=== PATIENT | female | born 1980 | race Caucasian/White ===

== ENCOUNTER 2016-05-31 09:20 | Emergency (ER) | payer SELFPAY ==
[~2016-05-31] VITALS: Ht 175.3 cm; Wt 95.0 kg
[~2016-05-31 09:20] MED LIST: CIPR500T4 PO; CLIN150 PO; PERC5TAB12 PO
[2016-05-31 09:27] VITALS: BP 133/84; PULSE 79; RESP 20; TEMP 98.4; O2SAT 94
--- NOTE | 2016-05-31 09:40 | PD ---
HPI Chief Complaint: Chest Pain Time Seen by Provider: 09:22 Travel History International Travel<30 days: No Contact w/Intl Traveler<30days: No Traveled to known affect area: No History of Present Illness HPI The patient was seen and examined in the presence of the nurse. This patient complains of chest pain. Started at 7:45 AM. Feels like a pressure in the left low chest with some radiation toward the left shoulder. He is not having fever or chills or cough or presyncopal symptoms. She has a history of IV Dilaudid injection, last used 4 days ago. Never had endocarditis or cardiac problems. Severity is moderate. No alleviating factors. Duration is 2 hours PFSH Past Medical History Asthma: Yes Kidney Stones: Yes Musculoskeletal: Yes (OPEN BOOK PELVIC FRACTURE) ?: Unknown LMP: 5 MONTHS AGO : 1 Para: 1 Miscarriage: 0 : 0 Tubal Ligation: Yes Past Surgical History Section: Yes Genitourinary Surgery: Yes (LITHOTRIPSY X 2, RENAL STENT) Gynecologic Surgery: Yes (LITHOTRIPSY) Hysterectomy: Yes (TUBAL) Other Surgery: Yes (SINUS SURGERY, MULTIPLE SKIN GRAFTS) Social History Alcohol Use: No Tobacco Use: Yes (05/14 PPD) Substance Use: Yes (IV DRUG ABUSE) Allergies-Medications (Allergen,Severity, Reaction): Coded Allergies: Iodine (Verified Allergy, Severe, THROAT SWELLS, HIVES, 05/31/16) Seafood (Verified Allergy, Severe, THROAT SWELLS, HIVES, 05/31/16) Aspirin (Verified Allergy, Intermediate, HIVES, VOMITING, 05/31/16) Darvocet-N 100 (Verified Allergy, Intermediate, HIVES, VOMITING, 05/31/16) Erythromycin (Verified Allergy, Intermediate, HIVES, VOMITING, 05/31/16) Ibuprofen (Verified Allergy, Intermediate, HIVES, VOMITING, 05/31/16) Toradol (Verified Allergy, Intermediate, HIVES, 05/31/16) Ultracet (Verified Allergy, Intermediate, HIVES, 05/31/16) Norflex (Verified Adverse Reaction, Intermediate, UNABLE TO SLEEP AFTER ADMINISTRATION, 05/31/16) Reported Meds & Prescriptions Reported Meds & Active Scripts Active Review of Systems General / Constitutional: No: Fever Eyes: No: Visual changes HENT: No: Headaches Cardiovascular: Positive: Chest Pain or Discomfort Respiratory: No: Shortness of Breath Gastrointestinal: No: Abdominal Pain Genitourinary: No: Dysuria Musculoskeletal: No: Pain Skin: No Rash Neurologic: No: Weakness Psychiatric: Positive: Substance Abuse, No: Depression Endocrine: No: Polydipsia Hematologic/Lymphatic: No: Easy Bruising Physical Exam Narrative GENERAL: Well-nourished, well-developed patient in no apparent distress. SKIN: Warm and dry. Arms are covered in track petty HEAD: Atraumatic. Normocephalic. EYES: Pupils equal and round. No scleral icterus. No injection or drainage. ENT: No nasal bleeding or discharge. Mucous membranes pink and moist. NECK: Trachea midline. No JVD. CARDIOVASCULAR: Regular rate and rhythm. No murmur appreciated. RESPIRATORY: No accessory muscle use. Clear to auscultation. Breath sounds equal bilaterally. GASTROINTESTINAL: Abdomen soft, non-tender, nondistended. Hepatic and splenic margins not palpable. MUSCULOSKELETAL: No obvious deformities. No clubbing. No cyanosis. No edema. No chest wall tenderness NEUROLOGICAL: Awake and alert. No obvious cranial nerve deficits. Motor grossly within normal limits. Normal speech. PSYCHIATRIC: Appropriate mood and affect; insight and judgment is weak. Data Data Last Documented VS Vital Signs Date Time Temp Pulse Resp B/P Pulse Ox O2 Delivery O2 Flow Rate FiO2 05/31/16 09:27 98.4 79 20 133/84 94 Orders Basic Metabolic Panel (Bmp) (05/31/16 09:35) Ckmb (Isoenzyme) Profile (05/31/16 09:35) Complete Blood Count With Diff (05/31/16 09:35) Prothrombin Time / Inr (Pt) (05/31/16 09:35) Act Partial Throm Time (Ptt) (05/31/16 09:35) Troponin I (05/31/16 09:35) Chest, Single Ap (05/31/16 09:35) Ecg Monitoring (05/31/16 09:35) Iv Access Insert/Monitor (05/31/16 09:35) Oximetry (05/31/16 09:35) Sodium Chloride 0.9% Flush (Ns Flush) (05/31/16 09:45) Ed Urine Pregnancytest Poc (05/31/16 09:40) CKMB (05/31/16 09:30) CKMB% (05/31/16 09:30) Labs Laboratory Tests Test 05/31/16 09:30 White Blood Count 4.0 TH/MM3 Red Blood Count 4.47 MIL/MM3 Hemoglobin 13.7 GM/DL Hematocrit 39.7 % Mean Corpuscular Volume 88.9 FL Mean Corpuscular Hemoglobin 30.6 PG Mean Corpuscular Hemoglobin 34.4 % Concent Red Cell Distribution Width 13.9 % Platelet Count 204 TH/MM3 Mean Platelet Volume 9.1 FL Neutrophils (%) (Auto) 65.4 % Lymphocytes (%) (Auto) 25.1 % Monocytes (%) (Auto) 7.9 % Eosinophils (%) (Auto) 0.8 % Basophils (%) (Auto) 0.8 % Neutrophils # (Auto) 2.6 TH/MM3 Lymphocytes # (Auto) 1.0 TH/MM3 Monocytes # (Auto) 0.3 TH/MM3 Eosinophils # (Auto) 0.0 TH/MM3 Basophils # (Auto) 0.0 TH/MM3 CBC Comment DIFF FINAL Differential Comment Prothrombin Time 10.7 SEC Prothromb Time International 1.0 RATIO Ratio Activated Partial 25.7 SEC Thromboplast Time Sodium Level 139 MEQ/L Potassium Level 4.0 MEQ/L Chloride Level 107 MEQ/L Carbon Dioxide Level 24.4 MEQ/L Anion Gap 8 MEQ/L Blood Urea Nitrogen 15 MG/DL Creatinine 0.89 MG/DL Estimat Glomerular Filtration 72 ML/MIN Rate Random Glucose 91 MG/DL Calcium Level 8.8 MG/DL Total Creatine Kinase 244 U/L Creatine Kinase MB 2.2 NG/ML Creatine Kinase MB % 0.9 % Troponin I LESS THAN 0.02 NG/ML [facility] Medical Decision Making Medical Screen Exam Complete: Yes Emergency Medical Condition: Yes Medical Record Reviewed: Yes Differential Diagnosis Differential diagnosis includes ND, angina, pericarditis, pleurisy, GERD, anxiety. Narrative Course I have reviewed the patient's electronic medical record. Was here one year ago for cellulitis IV placed I reviewed the EKG which shows sinus rhythm with no ST elevation or ectopy I reviewed the chest x-ray which is normal Extended cardiac monitoring shows sinus rhythm without ectopy CBC is normal Metabolic profile is normal CK is normal MB percent Troponin is normal Coagulation studies are normal Had a lengthy discussion with the patient. I recommended chest pain center observation as she has strong family history of CAD with a brother who of ND at 35 per her report. She is a smoker as well. So she has multiple risk factors. Patient is going to decline my recommendation and sign out AGAINST MEDICAL ADVICE. She says she has to move tomorrow and cannot stay. I advised her to return if she worsens or changes her mind. I don't have any clinical suspicion of endocarditis Diagnosis Primary Impression: Chest pain in adult Additional Impressions: Smoker Intravenous drug abuse Scripts No Active Prescriptions or Reported Meds Disposition: 07 AGAINST MEDICAL ADVICE Kwame Park MD May 31, 2016 09:40
[2016-05-31] MEDS ORDERED: SODIUM CHLORIDE 0.9% FLUSH 5 ML FLUSH IVF PRN (09:45)
[2016-05-31 10:03] LABS: AUTOMATED NEUTROPHIL # 2.6 TH/MM3 (1.8-7.7); BASOPHIL % 0.8 % (0.0-2.0); EOSINOPHIL % 0.8 % (0.0-4.0); HEMATOCRIT 39.7 % (35.0-46.0); HEMO FLAGS DIFF FINAL; LYMPH % 25.1 % (9.0-44.0); MEAN CELL VOLUME 88.9 FL (80.0-100.0); MEAN CORPUSCULAR HEMOGLOBIN 30.6 PG (27.0-34.0); MEAN CORPUSCULAR HGB CONC 34.4 % (32.0-36.0); MONO % 7.9 % (0.0-8.0); NEUT % 65.4 % (16.0-70.0); PLATELET COUNT 204 TH/MM3 (150-450); RED BLOOD COUNT 4.47 MIL/MM3 (4.00-5.30); RED CELL DISTRIBUTION WIDTH 13.9 % (11.6-17.2)
[2016-05-31 10:08] LABS: APTT (PATIENT) 25.7 SEC (24.3-30.1); PROTHROMBIN TIME - PATIENT 10.7 SEC (9.8-11.6)
--- NOTE | 2016-05-31 10:09 | RADRPT ---
EXAM DATE/TIME: 05/31/2016 09:45 [facility] COMPARISON: No previous studies available for comparison. INDICATIONS : Chest pain beginning this morning.. MEDICAL HISTORY : None. SURGICAL HISTORY : Tubal ligation. ENCOUNTER: Initial ACUITY: 1 day PAIN SCORE: 8/10 LOCATION: Bilateral chest FINDINGS: A single view of the chest demonstrates the lungs to be symmetrically aerated without evidence of mas s, infiltrate or effusion. The cardiomediastinal contours are unremarkable. Osseous structures are intact. CONCLUSION: No acute disease. Steffen Hood MD on May 31, 2016 at 10:06 Board Certified Radiologist. This report was verified electronically.
[2016-05-31 10:18] LABS: ANION GAP 8 MEQ/L (5-15); BICARBONATE 24.4 MEQ/L (21.0-32.0); BLOOD UREA NITROGEN 15 MG/DL (7-18); CHLORIDE 107 MEQ/L (98-107); GLOMERULAR FILTRATION RATE 72 ML/MIN (>89); SODIUM (NA) 139 MEQ/L (136-145)
[2016-05-31 10:24] LABS: CREATINE KINASE 244 U/L (26-192)
[2016-05-31 10:36] LABS: CKMB 2.2 NG/ML (0.5-3.6)
[2016-05-31 12:02] VITALS: BP 142/78
--- NOTE | 2016-06-01 23:06 | EKG ---
Date Performed: 05/31/2016 Time Performed: 09:29:38 PTAGE: 35 years EKG: Sinus rhythm NORMAL ECG NO PREVIOUS TRACING DOCTOR: Gume Jernigan Interpretating Date/Time 06/01/2016 22:55:49
== END 2016-05-31 12:00 | disposition left against medical advice (07) ==
LOC: NEPA 09:20
DX: R07.9 Chest pain, unspecified (principal); J45.909 Unspecified asthma, uncomplicated
CPT/HCPCS: 71010; 80048; 82550; 82552; 84484; 84703; 85025; 85610; 85730; 93005; 99285

== ENCOUNTER 2016-06-14 01:02 | Observation (INO) | payer SELFPAY ==
[~2016-06-14] VITALS: Ht 175.3 cm; Wt 97.0 kg
[2016-06-14] VITALS (11 sets, daily range): BP systolic 122–138; BP diastolic 71–86; PULSE 58–88; RESP 18–20; TEMP 97.7–98.5; O2SAT 96–99
--- NOTE | 2016-06-14 01:05 | PD ---
HPI Chief Complaint: chest pain Time Seen by Provider: 01:05 Travel History International Travel<30 days: No Contact w/Intl Traveler<30days: No Traveled to known affect area: No History of Present Illness HPI 35-year-old female came to the emergency room with history of left-sided chest pain that started earlier last night. Patient was brought in by EMS. Patient says the pain started at 11 PM last night. She points the pain to the left side of her chest and says that it radiates down her left arm. Describes the pain as a pressure and is there even at rest. Nothing has really made the pain better or worse. She was given 2 sublingual nitroglycerin spray en route by the paramedics. That has not completely relieved her pain. Patient is allergic to aspirin and hence aspirin was not given to her. She says that she was in the emergency room with the same symptoms almost 2 weeks ago. She was supposed to be admitted to the chest pain center but then she left against medical advise. She understands that this time if it's needed she would stay. Vital signs are stable otherwise. Patient says that she was abusing Dilaudid up until 20 days ago. She is a smoker. Her father and brother both had heart attack in their early 40s. [facility] Past Medical History Narrative Medical List of her past medical history is reviewed from the nursing note. Asthma: Yes Kidney Stones: Yes Musculoskeletal: Yes (OPEN BOOK PELVIC FRACTURE) : 1 Para: 1 Miscarriage: 0 : 0 Tubal Ligation: Yes Past Surgical History Section: Yes Genitourinary Surgery: Yes (LITHOTRIPSY X 2, RENAL STENT) Gynecologic Surgery: Yes (LITHOTRIPSY) Hysterectomy: Yes (TUBAL) Other Surgery: Yes (SINUS SURGERY, MULTIPLE SKIN GRAFTS) Family History Family Myocardial Infarction: Yes (father and brother at early age in her early 40s) Social History Alcohol Use: No Tobacco Use: Yes (1/2 PPD) Substance Use: Yes (IV DRUG ABUSE) Allergies-Medications (Allergen,Severity, Reaction): Coded Allergies: Iodine (Verified Allergy, Severe, THROAT SWELLS, HIVES, 06/14/16) Seafood (Verified Allergy, Severe, THROAT SWELLS, HIVES, 06/14/16) Aspirin (Verified Allergy, Intermediate, HIVES, VOMITING, 06/14/16) Darvocet-N 100 (Verified Allergy, Intermediate, HIVES, VOMITING, 06/14/16) Erythromycin (Verified Allergy, Intermediate, HIVES, VOMITING, 06/14/16) Ultracet (Verified Allergy, Intermediate, HIVES, 06/14/16) Norflex (Verified Adverse Reaction, Intermediate, UNABLE TO SLEEP AFTER ADMINISTRATION, 06/14/16) Comments List of her allergies reviewed from the nursing note. Reported Meds & Prescriptions Reported Meds & Active Scripts Active No Active Prescriptions or Reported Medications Narrative Medication List of her home medications reviewed from the nursing note. Review of Systems Except as stated in HPI: all other systems reviewed are Neg Physical Exam Narrative GENERAL: Awake, alert, moderate distress, anxious SKIN: Warm and dry. HEAD: Atraumatic. Normocephalic. EYES: Pupils equal and round. No scleral icterus. No injection or drainage. ENT: No nasal bleeding or discharge. Mucous membranes pink and moist. NECK: Trachea midline. No JVD. CARDIOVASCULAR: Regular rate and rhythm. No murmur appreciated. RESPIRATORY: No accessory muscle use. Clear to auscultation. Breath sounds equal bilaterally. GASTROINTESTINAL: Abdomen soft, non-tender, nondistended. Hepatic and splenic margins not palpable. MUSCULOSKELETAL: No obvious deformities. No clubbing. No cyanosis. No edema. NEUROLOGICAL: Awake and alert. No obvious cranial nerve deficits. Motor grossly within normal limits. Normal speech. PSYCHIATRIC: Appropriate mood and affect; insight and judgment normal. Data Data Last Documented VS Vital Signs Date Time Temp Pulse Resp B/P Pulse Ox O2 Delivery O2 Flow Rate FiO2 06/14/16 01:12 65 20 125/84 99 Room Air 06/14/16 01:07 97.7 Orders Electrocardiogram (06/14/16 01:11) Basic Metabolic Panel (Bmp) (06/14/16 01:11) Ckmb (Isoenzyme) Profile (06/14/16 01:11) Complete Blood Count With Diff (06/14/16 01:11) Magnesium (Mg) (06/14/16 01:11) Prothrombin Time / Inr (Pt) (06/14/16 01:11) Act Partial Throm Time (Ptt) (06/14/16 01:11) Troponin I (06/14/16 01:11) Chest, Single Ap (06/14/16 01:11) Ecg Monitoring (06/14/16 01:11) Bilateral Bp Monitoring (06/14/16 01:11) Iv Access Insert/Monitor (06/14/16 01:11) Oximetry (06/14/16 01:11) Oxygen Administration (06/14/16 01:11) Sodium Chloride 0.9% Flush (Ns Flush) (06/14/16 01:15) CKMB (06/14/16 01:20) CKMB% (06/14/16 01:20) Admit Order (Ed Use Only) (06/14/16 02:10) Place In Observation (06/14/16 02:10) Activity Bed Rest With Brp (06/14/16 02:10) Vital Signs (Adult) Q4H (06/14/16 02:10) Cardiac Rhythm .As Directed (06/14/16 02:10) ^ Notify Dr: Other .PRN (06/14/16 02:10) ^ Notify Dr. Parameters (06/14/16 02:10) Resp Oxygen Nasal Cannula (06/14/16 ) Ckmb (Isoenzyme) Profile (06/14/16 02:10) Ckmb (Isoenzyme) Profile (06/14/16 05:10) Troponin I (06/14/16 02:10) Troponin I (06/14/16 05:10) Electrocardiogram (06/14/16 02:10) Electrocardiogram (06/14/16 05:10) ^ Obtain (06/14/16 02:10) Sodium Chloride 0.9% Flush (Ns Flush) (06/14/16 09:00) Acetaminophen (Tylenol) (06/14/16 02:15) Ondansetron Inj (Zofran Inj) (06/14/16 02:15) Nitroglycerin Sl (Nitrostat Sl) (06/14/16 02:15) Dyed Yarn Operator / Telemetry [id number] (06/14/16 02:10) CKMB (06/14/16 04:15) CKMB% (06/14/16 04:15) CKMB (06/14/16 07:28) CKMB% (06/14/16 07:28) Labs Laboratory Tests Test 06/14/16 01:20 White Blood Count 6.0 TH/MM3 Red Blood Count 3.95 MIL/MM3 Hemoglobin 12.2 GM/DL Hematocrit 36.0 % Mean Corpuscular Volume 91.2 FL Mean Corpuscular Hemoglobin 31.0 PG Mean Corpuscular Hemoglobin 33.9 % Concent Red Cell Distribution Width 13.8 % Platelet Count 239 TH/MM3 Mean Platelet Volume 8.9 FL Neutrophils (%) (Auto) 57.3 % Lymphocytes (%) (Auto) 35.6 % Monocytes (%) (Auto) 5.3 % Eosinophils (%) (Auto) 1.1 % Basophils (%) (Auto) 0.7 % Neutrophils # (Auto) 3.4 TH/MM3 Lymphocytes # (Auto) 2.1 TH/MM3 Monocytes # (Auto) 0.3 TH/MM3 Eosinophils # (Auto) 0.1 TH/MM3 Basophils # (Auto) 0.0 TH/MM3 CBC Comment DIFF FINAL Differential Comment Prothrombin Time 10.7 SEC Prothromb Time International 1.0 RATIO Ratio Activated Partial 24.5 SEC Thromboplast Time Sodium Level 140 MEQ/L Potassium Level 3.8 MEQ/L Chloride Level 107 MEQ/L Carbon Dioxide Level 28.1 MEQ/L Anion Gap 5 MEQ/L Blood Urea Nitrogen 10 MG/DL Creatinine 0.81 MG/DL Estimat Glomerular Filtration 80 ML/MIN Rate Random Glucose 98 MG/DL Calcium Level 8.7 MG/DL Magnesium Level 2.3 MG/DL Total Creatine Kinase 404 U/L Creatine Kinase MB 4.3 NG/ML Creatine Kinase MB % 1.1 % Troponin I LESS THAN 0.02 NG/ML [facility] Medical Decision Making Medical Screen Exam Complete: Yes Emergency Medical Condition: Yes Medical Record Reviewed: Yes Interpretation(s) Twelve-lead EKG was reviewed by me. Normal sinus rhythm, normal axis, nonspecific ST-T wave changes. Heart rate of 67 bpm. Differential Diagnosis ACS, non-STEMI, nonspecific chest pain Narrative Course 1:40 AM awaiting for the blood test results. Patient will require to be admitted to the chest pain center to be ruled out given her significant family history as well as her being a smoker if all the blood test results come back negative. Patient understands this and has agreed to stay this time. 2:13 AM blood test results are back. Patient is admitted to the chest pain center for rule out ACS. Procedures EKG Prior to Arrival: Yes Diagnosis Primary Impression: Chest pain in adult Admitting Information Admitting Physician Requests: Observation Scripts No Active Prescriptions or Reported Meds Jacque Morton MD Jun 14, 2016 01:05
[2016-06-14] MEDS ORDERED: SODIUM CHLORIDE 0.9% FLUSH 5 ML FLUSH IVF PRN ×2 (01:15→02:15)
[2016-06-14 01:33] LABS: AUTOMATED NEUTROPHIL # 3.4 TH/MM3 (1.8-7.7); BASOPHIL % 0.7 % (0.0-2.0); EOSINOPHIL # 0.1 TH/MM3 (0-0.4); EOSINOPHIL % 1.1 % (0.0-4.0); HEMO FLAGS DIFF FINAL; LYMPH % 35.6 % (9.0-44.0); LYMPHOCYTE # 2.1 TH/MM3 (1.0-4.8); MEAN CELL VOLUME 91.2 FL (80.0-100.0); MEAN CORPUSCULAR HGB CONC 33.9 % (32.0-36.0); MONO % 5.3 % (0.0-8.0); NEUT % 57.3 % (16.0-70.0); PLATELET COUNT 239 TH/MM3 (150-450); RED BLOOD COUNT 3.95 MIL/MM3 (4.00-5.30); RED CELL DISTRIBUTION WIDTH 13.8 % (11.6-17.2)
[2016-06-14 01:42] LABS: APTT (PATIENT) 24.5 SEC (24.3-30.1); PROTHROMBIN TIME - PATIENT 10.7 SEC (9.8-11.6)
[2016-06-14 01:55] LABS: ANION GAP 5 MEQ/L (5-15); BICARBONATE 28.1 MEQ/L (21.0-32.0); BLOOD UREA NITROGEN 10 MG/DL (7-18); CHLORIDE 107 MEQ/L (98-107); GLOMERULAR FILTRATION RATE 80 ML/MIN (>89); MAGNESIUM 2.3 MG/DL (1.5-2.5); POTASSIUM 3.8 MEQ/L (3.5-5.1); SODIUM (NA) 140 MEQ/L (136-145)
[2016-06-14 01:58] LABS: CREATINE KINASE 404 U/L (26-192)
[2016-06-14 02:10] LABS: CKMB 4.3 NG/ML (0.5-3.6)
[2016-06-14] MEDS ORDERED: NITROGLYCERIN 0.4 MG SL 25 TABS/BTL SL PRN (02:15)
[2016-06-14] MEDS ORDERED: ONDANSETRON HCL 4 MG/2 ML VIAL IV PRN (02:15)
[2016-06-14] MEDS ORDERED: ACETAMINOPHEN 500 MG CPLT PO PRN (02:15)
--- NOTE | 2016-06-14 02:37 | RADRPT ---
EXAM DATE/TIME: 06/14/2016 01:24 [facility] COMPARISON: CHEST SINGLE AP, May 31, 2016, 9:45. INDICATIONS : Shortness of breath. MEDICAL HISTORY : None. SURGICAL HISTORY : Tubal ligation. ENCOUNTER: Initial ACUITY: 1 day PAIN SCORE: 0/10 LOCATION: Bilateral chest FINDINGS: A single view of the chest demonstrates the lungs to be symmetrically aerated without evidence of mas s, infiltrate or effusion. The cardiomediastinal contours are unremarkable. Osseous structures are intact. CONCLUSION: No evidence of acute cardiopulmonary disease. Moe Shipley MD on June 14, 2016 at 2:36 Board Certified Radiologist. This report was verified electronically.
[2016-06-14 05:08] LABS: CREATINE KINASE 325 U/L (26-192)
[2016-06-14 05:21] LABS: CKMB 3.6 NG/ML (0.5-3.6)
[2016-06-14 08:31] LABS: CREATINE KINASE 275 U/L (26-192)
[2016-06-14 08:43] LABS: CKMB 2.7 NG/ML (0.5-3.6)
[2016-06-14] MEDS ORDERED: SODIUM CHLORIDE 0.9% FLUSH 5 ML FLUSH IVF SCH (09:00)
[2016-06-14 10:42] LABS: BETA HCG QUANT LESS THAN 1 MIU/ML (0-5)
[2016-06-14] MEDS ORDERED: REGADENOSON INJ 0.4 MG/5 ML SYR ONE (13:54)
--- NOTE | 2016-06-14 15:05 | MH ---
cc: MG HOLLOWAY MD DATE OF ADMISSION: 06/14/2016 1980 CHIEF COMPLAINT Chest pain. HISTORY OF PRESENT ILLNESS This is a 35-year-old patient who presents to the emergency room for further evaluation of chest discomfort that started approximately 11:30 last evening. Location is her left anterior chest described as a squeezing pressure that radiates to her left arm. Duration has been constant and she continues to have this chest discomfort. Associated symptoms includes it hurts to take a deep breath. She was mildly nauseous when pain initially started and she denies any diaphoresis. No known precipitating factors or relieving factors. The patient was seen in the emergency room a few weeks ago with the complaint of chest pain and was encouraged at that time to have further evaluation in the chest pain clinic, however, she signed herself out AMA. PAST MEDICAL HISTORY Past medical history includes: 1. Asthma. 2. Kidney stones. 3. She has an IVC filter placement. 4. IV drug abuser. PAST SURGICAL HISTORY 1. Tubal ligation. 2. C-sections. 3. Lithotripsy. 4. Sinus surgery. FAMILY HISTORY Family history is positive for early onset cardiovascular disease. Father at age 42 from massive heart attack and brother at age 35 from a massive heart attack. SOCIAL HISTORY Currently she is unemployed. She smokes a quarter of a pack of cigarettes daily and she is trying to quit smoking. She denies any alcohol and states she is recovering from IV drug abuse of Dilaudid and has not used IV drugs in 3 months. No known hypertension, diabetes or hyperlipidemia and she has not had any past cardiac testing. Currently she does not have a primary care provider. ALLERGIES She has allergies to ASPIRIN - CAUSES HIVES. ERYTHROMYCIN AND DARVOCET. MEDICATION She is currently not taking any prescription medications and/or vitamins or supplements. PHYSICAL EXAMINATION GENERAL: She is in her general state of health with no recent illness or fevers or chills. HEENT: No headache or visual change or dysphagia. CARDIOVASCULAR: As stated above. No palpitations or dizziness. RESPIRATORY: No shortness of breath, cough, wheeze or recent upper respiratory infection. ABDOMEN: No bowel changes. Reports a good appetite. No constipation, pain, distension, blood in the stool or dark stool. : No dysuria or hematuria. EXTREMITIES: No lower leg edema or pain. MUSCULOSKELETAL: No change in ROM. NEURO: No difficulty with balance, motor or sensory deficits. PSYCHE: No anxiety or depression. SKIN: No concerning lesions. PHYSICAL EXAMINATION VITAL SIGNS: Temperature is 97.7, pulse 74, respiratory rate 20, blood pressure 125/84 and she is 99% on room air. GENERAL: She is alert, moderately obese. No acute distress, female. HEAD: Normocephalic and atraumatic. EYES: Sclerae are clear and conjunctivae is without injection. NECK: Neck is supple. Trachea is midline. CARDIOVASCULAR: She has RRR without murmur, rub or gallop. No JVD. S1-S2. No S3. No S4. No carotid bruits. RESPIRATORY: Clear lungs throughout bilateral with no crackles, wheeze or rhonchi. She is nonlabored. ABDOMEN: Soft, nontender, nondistended. No masses. Positive bowel tones. EXTREMITIES: Pulses +2 x4. NEURO: CN II-XII grossly intact. Motor strength 5/5. PSYCHE: She is alert and oriented x3, appropriate to mood, insight and judgment. SKIN: Skin is warm and dry. LABORATORY CBC is unremarkable. Chemistry is unremarkable and three sets of cardiac enzymes are negative. Lipase is within normal limits. Coagulation is unremarkable and a D-dimer is also within normal limits. IMAGING STUDIES Chest x-ray read by the radiologist has a conclusion of no evidence of acute cardiopulmonary disease. EKG Three EKGs show a normal sinus rhythm with a normal axis and no ST or T segment changes. ASSESSMENT/PLAN 1. Chest pain. Patient has been admitted to the chest pain center. She was ruled out with three sets of EKGs and cardiac enzymes and was seen and evaluated by Dr. Mg Holloway. The patient has agreed to completing a chemical stress test during this admission. Actually if this test is unremarkable she will be later discharged home and encouraged to find a primary care provider for medical management and preventative medicine. She is agreeable to this plan of care. Dictated by: ISAIAS Diaz MD JAMI Graves/ATIYA /1:32 PM /3:05 PM
--- NOTE | 2016-06-14 15:28 | RADRPT ---
EXAM DATE/TIME: 06/14/2016 13:28 [facility] COMPARISON: No previous studies available for comparison. INDICATIONS : Left chest pain radiating down left arm. Angina. DOSE: 25.8 mCi Tc99m Myoview at stress. 8.6 mCi Tc99m Myoview at rest. 0.4 mg Lexiscan STRESS SYMPTOMS: Dyspnea, nausea and vomiting. EJECTION FRACTION: 59% MEDICAL HISTORY : Asthma. Smoker. SURGICAL HISTORY : Hysterectomy. ENCOUNTER: Initial ACUITY: 1 day PAIN SCALE: 6/10 LOCATION: Left chest TECHNIQUE: The patient underwent pharmacologic stress with infusion of prescribed dose. Continuous ECG tracing was monitored during stress. Gated SPECT imaging was performed after stress and conventional SPECT i maging was performed at rest. The examination was performed on a SPECT/CT scanner, both attenuation and non-corrected datasets were reviewed. FINDINGS: DISTRIBUTION: The maximum perfused segment at stress is in the inferior wall. PERFUSION STUDY: A small partially reversible stress-induced perfusion abnormality is identified in the anteroapical r egion of the left ventricle. There are no other significant perfusion abnormalities. GATED STUDY: There is intact wall motion and thickening without hypokinetic or dyskinetic segments. CONCLUSION: Anteroapical perfusion abnormality which is partially reversible at rest. Wall motion and ejection fraction. RISK CATEGORY: Intermediate (1-3% Annual Mortality Rate) Brandon Kauffman MD on June 14, 2016 at 15:21 Board Certified Radiologist. This report was verified electronically.
--- NOTE | 2016-06-14 15:42 | EKG ---
Date Performed: 06/14/2016 Time Performed: 04:11:02 PTAGE: 35 years EKG: Sinus rhythm NORMAL ECG PREVIOUS TRACING : 06/14/2016 01.12 Since previous tracing, no significant change noted DOCTOR: Adonis Holloway Interpretating Date/Time 06/14/2016 15:41:18
--- NOTE | 2016-06-14 15:43 | EKG ---
Date Performed: 06/14/2016 Time Performed: 01:12:22 PTAGE: 35 years EKG: Sinus rhythm NORMAL ECG PREVIOUS TRACING : 05/31/2016 09.29 Since previous tracing, no significant change noted DOCTOR: Adonis Holloway Interpretating Date/Time 06/14/2016 15:41:51
--- NOTE | 2016-06-14 15:54 | EKG ---
Date Performed: 06/14/2016 Time Performed: 07:39:04 PTAGE: 35 years EKG: Sinus rhythm NORMAL ECG PREVIOUS TRACING : 06/14/2016 04.11 Since previous tracing, no significant change noted DOCTOR: Adonis Holloway Interpretating Date/Time 06/14/2016 15:51:52
--- NOTE | 2016-06-14 16:28 | HHI.PR ---
Subjective Remarks resting comfortably with no distress but complaining of low back pain. no chest pain or sob. Objective Vitals Vital Signs Date Time Temp Pulse Resp B/P Pulse Ox O2 Delivery O2 Flow Rate FiO2 06/14/16 13:05 71 18 127/75 99 06/14/16 11:30 79 18 130/71 98 06/14/16 08:08 75 18 137/74 98 Room Air 06/14/16 06:58 58 20 131/73 97 Room Air 06/14/16 06:49 21 06/14/16 02:40 64 18 122/77 99 Room Air 06/14/16 01:12 65 20 125/84 99 Room Air 06/14/16 01:12 69 99 Room Air 06/14/16 01:07 97.7 74 20 125/84 Result Diagram: 06/14/16 0120 06/14/16 0120 Imaging Last Impressions Chest X-Ray 06/14/16 0111 Signed Impressions: Service Date/Time: June 01:24 - CONCLUSION: No evidence of acute cardiopulmonary disease. Moe Shipley MD Myocardial Perfusion Scan Nuc Med 06/14/16 0000 Signed Impressions: Service Date/Time: June 13:28 - CONCLUSION: Anteroapical perfusion abnormality which is partially reversible at rest. Wall motion and ejection fraction. RISK CATEGORY: Intermediate (1-3%% Annual Mortality Rate) Barndon Kauffman MD Objective Remarks GENERAL: This is a well-nourished, well-developed patient, in no apparent distress. CARDIOVASCULAR: Regular rate and regular rhythm without murmurs, gallops, or rubs. RESPIRATORY: Clear to auscultation. Breath sounds equal bilaterally. No wheezes , rales, or rhonchi. GASTROINTESTINAL: Abdomen soft, non-tender, nondistended. Normal, active bowel sounds MUSCULOSKELETAL: Extremities without clubbing, cyanosis, or edema. NEURO: Alert & Oriented x4 to person, place, time, situation. Moves all ext x4 Procedures none Medications and IVs Current Medications IV Flush (NS Flush) 2 ml UNSCH PRN IVF FLUSH AFTER USING IV ACCESS; Start at 01:15 IV Flush (NS Flush) 2 ml UNSCH PRN IVF FLUSH AFTER USING IV ACCESS; Start at 02:15; Status Cancel IV Flush (NS Flush) 2 ml BID IVF Last administered on 06/14/16 10:05; Start 06/14/16 at 09:00 Acetaminophen (Tylenol) 500 mg Q4H PRN PO HEADACHE; Start 06/14/16 at 02:15 Ondansetron HCl (Zofran Inj) 4 mg Q6H PRN IV NAUSEA Last administered on 10:57; Start 06/14/16 at 02:15 Nitroglycerin (Nitrostat Sl) 0.4 mg Q5M PRN SL CHEST PAIN; Start 06/14/16 at 02: 15 Regadenoson (Lexiscan Inj) 0.4 mg STK-MED ONCE .ROUTE Last administered on 13:54; Start 06/14/16 at 13:54; Stop 06/14/16 at 13:55; Status DC A/P Assessment and Plan A/P - chest pain- now has resolved. cardiac enzymes negative- stress test with reversible ischemia- start aspirin- cardiology consulted of note the patient has a strong family history of CAD. counselled on smoking cessation. -low back pain; continue with pain control. Discharge Planning awaiting cardiology evaluation. Andreina Segura MD Jun 14, 2016 16:28
[2016-06-14] MEDS ORDERED: ASPIRIN EC 81 MG TABEC PO SCH (17:00)
[2016-06-14] MEDS ORDERED: ACETAMINOPHEN/HYDROcodone 325 MG/5 MG TAB PO PRN (17:00)
--- NOTE | 2016-06-14 22:59 | MB ---
cc: CHRIS OLMOS DO DATE OF CONSULTATION 06/14/16 REASON FOR CONSULTATION Abnormal stress test. HISTORY OF PRESENT ILLNESS Stella Rubio is a pleasant 35-year-old female who originally presented to [facility] emergency room on June 14, 2016 due to chest pain. Chest pain started a few hours before arrival. It was located on the left side of her chest and somewhat between squeezing and stabbing. She states that it was constant at that time. Pain also hurt more with a deep breath. She denies shortness of breath with the pain. She previously had an episode 1-2 weeks before this and came to the emergency room, but at that time the pain went away and she had to sign herself out AMA as she was planning to move the next day and could not wait for the chest pain unit and possible stress testing. She states that this episode is similar to the previous. In seeing her, she states that she no longer is having chest pain, denies shortness of breath, palpitations, lightheadedness or syncopal episodes. PAST MEDICAL HISTORY 1. Asthma 2. Kidney stones. 3. Previous history of IV drug abuse with Dilaudid for which she has been clean for three months PAST SURGICAL HISTORY 1. IVC filter placement for an unknown cause. 2. Tubal ligation. 3. . 4. Lithotripsy. 5. Sinus surgery. ALLERGIES ASPIRIN - HIVES ERYTHROMYCIN DARVOCET MEDICATIONS Denies current medications. FAMILY HISTORY Positive for cardiovascular problems. Unknown if this is truly premature coronary artery disease. Father at the age of 42 from a massive heart attack. Brother at the age of 35 from a massive heart attack, but per the patient he was also an accidental methadone overdose. Per the patient, he also had cardiomegaly from an unknown cause. SOCIAL HISTORY She is currently unemployed. She smokes a quarter pack of cigarettes daily and is currently trying to quit. She denies any alcohol. She previously was prescribed pain killers and then when she found her brother , she started IV Dilaudid but has currently not used any in the past three months, per her statement. REVIEW OF SYSTEMS 14 systems were reviewed including osteopathic pertinent positives and negatives above, otherwise negative. PHYSICAL EXAMINATION VITAL SIGNS: Temperature 98.4, heart rate 86, blood pressure 138/86, respirations 18, pulse ox 96% on room air. GENERAL: The patient appears well in no acute distress, alert, awake and oriented x3. HEENT: Extraocular muscles intact. Mucous membranes moist. NECK: Supple. No JVD at 45 degrees. No carotid bruits heard bilaterally. Carotid upstroke is brisk in nature. HEART: Regular rate and rhythm. Positive first and second heart sounds with no murmurs, gallops or rubs. PMI is nondisplaced. LUNGS: Clear to auscultation bilaterally. No wheezes, rales or rhonchi. ABDOMEN: Soft, nontender, nondistended. No organomegaly noted. EXTREMITIES: No clubbing, cyanosis or edema. Femoral and distal pulses are intact bilaterally. NEUROLOGIC: No focal deficits. SKIN: Warm, dry and intact. OSTEOPATHIC: No kyphoscoliosis, lordosis or paraspinal tender points. LABORATORY FINDINGS Hemoglobin 12.2, hematocrit 36.0, platelets 239. Troponin negative x3. Potassium 3.8, BUN 10, creatinine 0.81. CARDIOLOGY STUDIES Electrocardiogram (June 14, 2016 at 0739) normal sinus rhythm at 61 beats per minute, no acute ST-T wave changes. IMPRESSION 1. Chest pain somewhat atypical for coronary insufficiency. 2. Pharmacologic nuclear stress test (June 14, 2016) small partially reversible stress induced perfusion abnormality in the anterior apical region of the left ventricle, ejection fraction 59%. Read as an intermediate risk category stress test. 3. Strong family history of cardiovascular disease, although unsure if true premature coronary artery disease. 4. Tobacco abuse. 5. History of IV Dilaudid use for which she states she has been clean three months. RECOMMENDATIONS 1. Stella has an area on her stress test which shows possible myocardium at risk. Because of this, we will plan on cardiac catheterization in the morning from a right radial standpoint. 2. She does have an ASPIRIN ALLERGY which causes hives. My suggestion would be that she undergo diagnostic cardiac catheterization and if a significant lesion is noted she would undergo aspirin desensitization over the weekend and stage procedure on Saturday. 3. She did speak to me that she has her daughter at home who is only two years old and she was attempting to find someone to try to help watch her overnight, but if she was unable to find someone that she would have to leave AMA. I did explain that there is significant risk with this, but understand from a family standpoint that her daughter needs to be taken care of. 4. I spoke to her for greater than three minutes about tobacco cessation which she is currently trying to quit. Thank you for allowing me to see Stella Way. If there are any questions, please do not hesitate to call. Chris Olmos DO VGP/SA /10:22 PM /10:45 PM MTDD
--- NOTE | 2016-06-15 15:05 | TR ---
Date Performed: 06/14/2016 Time Performed: 14:03:15 DOCTOR: Adonis Holloway DRUG LIST: CLINICAL HISTORY: REASON FOR TEST: CHEST PAIN REASON FOR ENDING: OBSERVATION: CONCLUSION: Lexiscan stress test was performed under standard four minute protocol. Radionuclid e was injected one minute prior to ending the test. No electrocardiographic abormalities were present to suggest ischemia. Nuclear imaging and interpretation are pending. COMMENTS:
== END 2016-06-14 18:23 | disposition left against medical advice (07) ==
LOC: NEPC 01:02 → NEDA 02:12 → NEDH 06:46 → NEPFCDU 15:33
PROVIDERS: ADMIT Internal Medicine; ATTEND Internal Medicine
DX: R07.9 Chest pain, unspecified (principal); J45.909 Unspecified asthma, uncomplicated; F17.210 Nicotine dependence, cigarettes, uncomplicated; R94.39 Abnormal result of other cardiovascular function study; Z95.828 Presence of other vascular implants and grafts; Z87.442 Personal history of urinary calculi; Z87.898 Personal history of other specified conditions; Z82.49 Family history of ischemic heart disease and other diseases of the circulatory system
CPT/HCPCS: 71010; 78452; 80048; 82550; 82552; 83690; 83735; 84484; 84702; 85025; 85379; 85610; 85730; 93005; 93017; 99285; A9502; G0378; J2405; J2785

== ENCOUNTER 2016-06-21 01:10 | Inpatient (IN) | payer SELFPAY ==
[2016-06-21] VITALS (9 sets, daily range): BP systolic 114–143; BP diastolic 61–95; PULSE 55–76; RESP 16–18; TEMP 98–98.5; O2SAT 96–99
[~2016-06-21] VITALS: Ht 172.7 cm; Wt 97.0 kg
[2016-06-21] MEDS ORDERED: SODIUM CHLORIDE 0.9% FLUSH 5 ML FLUSH IVF PRN (02:45)
[2016-06-21] MEDS ORDERED: ACETAMINOPHEN 325 MG TAB PO ONE (03:00)
--- NOTE | 2016-06-21 03:10 | PD ---
HPI Chief Complaint: Chest Pain Time Seen by Provider: 02:28 Travel History International Travel<30 days: No Contact w/Intl Traveler<30days: No Traveled to known affect area: No History of Present Illness HPI 35 y.o female who is recovering from IVDU presents to ED complains of chest pain that woke her up at around 12:30 am while she was asleep. She describes it as a squeezing/sharp substernal chest pain that radiates to her left arm. The pain was a 9/10 and decreased to 7/10 after nitro was administered by EMS. Patient states that her dad of heart attack at age 42 and brother had a GA at 35. Patient reports that she was here last week for similar symptoms, underwent stress test and had an abnormal EKG. She was supposed to have cardiac cath the next day, but left the hospital to go watch her daughter. She was told to come back to the hospital if she is having chest pain. She admits to smoke 1/ 4 ppd, but no IVDU for the past 4 months. She complains of headache and nausea since taking the Nitro and denies any SOB, abdominal pain or diarrhea. PFSH Past Medical History Asthma: No Blood Disorders: No Cardiovascular Problems: No High Cholesterol: No COPD: No Diminished Hearing: No Endocrine: No Genitourinary: No Immune Disorder: No Implanted Vascular Access Dvce: Yes Kidney Stones: Yes Musculoskeletal: Yes (OPEN BOOK PELVIC FRACTURE) Neurologic: No Psychiatric: No Reproductive: No Tetanus Vaccination: > 5 Years ?: Unknown LMP: 2WEEKS AGO : 1 Para: 1 Miscarriage: 0 : 0 Tubal Ligation: Yes Past Surgical History Body Medical Devices: IVC filter Section: Yes Genitourinary Surgery: Yes (LITHOTRIPSY X 2, RENAL STENT) Hysterectomy: Yes (TUBAL) Other Surgery: Yes (SINUS SURGERY, MULTIPLE SKIN GRAFTS) Social History Alcohol Use: No Tobacco Use: Yes (4PPD) Substance Use: No (3 months clean) Allergies-Medications (Allergen,Severity, Reaction): Coded Allergies: Iodine (Verified Allergy, Severe, THROAT SWELLS, HIVES, 06/21/16) Seafood (Verified Allergy, Severe, THROAT SWELLS, HIVES, 06/21/16) Aspirin (Verified Allergy, Intermediate, HIVES, VOMITING, 06/21/16) Darvocet-N 100 (Verified Allergy, Intermediate, HIVES, VOMITING, 06/21/16) Erythromycin (Verified Allergy, Intermediate, HIVES, VOMITING, 06/21/16) Ultracet (Verified Allergy, Intermediate, HIVES, 06/21/16) Norflex (Verified Adverse Reaction, Intermediate, UNABLE TO SLEEP AFTER ADMINISTRATION, 06/21/16) Reported Meds & Prescriptions Reported Meds & Active Scripts Active No Active Prescriptions or Reported Medications Review of Systems Except as stated in HPI: all other systems reviewed are Neg General / Constitutional: No: Fever, Chills HENT: Positive: Headaches (started after Nitro was administered ), No: Neck Pain Cardiovascular: Positive: Chest Pain or Discomfort, No: Palpitations, Dyspnea on exertion, Edema Respiratory: No: Cough, Shortness of Breath Gastrointestinal: Positive: Nausea, No: Vomiting, Diarrhea, Abdominal Pain Genitourinary: No: Urgency, Frequency Musculoskeletal: No: Myalgias, Weakness Neurologic: Positive: Headache, No: Weakness, Dizziness, Syncope Physical Exam Narrative GENERAL: 35 y.o female, well-developed, well-nourished, alert and oriented, no acute distress, pleasant and comfortably lying in bed. SKIN: Warm and dry. HEAD: Atraumatic. Normocephalic. EYES: Pupils equal and round. No scleral icterus. No injection or drainage. ENT: No nasal bleeding or discharge. Mucous membranes pink and moist. NECK: Trachea midline. No JVD. CARDIOVASCULAR: Regular rate and rhythm. RESPIRATORY: No accessory muscle use. Some expiratory wheezes, no crackle, Breath sounds equal bilaterally. GASTROINTESTINAL: Abdomen soft, non-tender, nondistended. Hepatic and splenic margins not palpable. MUSCULOSKELETAL: Extremities without clubbing, cyanosis, or edema. No obvious deformities. NEUROLOGICAL: Awake and alert. No obvious cranial nerve deficits. Motor grossly within normal limits. Five out of 5 muscle strength in the arms and legs. Normal speech. PSYCHIATRIC: Appropriate mood and affect; insight and judgment normal. Data Data Last Documented VS Vital Signs Date Time Temp Pulse Resp B/P Pulse Ox O2 Delivery O2 Flow Rate FiO2 06/21/16 03:03 96 Room Air 06/21/16 03:03 62 06/21/16 01:54 16 06/21/16 01:51 98.5 114/68 Orders Electrocardiogram (06/21/16 02:42) Basic Metabolic Panel (Bmp) (06/21/16 02:42) Ckmb (Isoenzyme) Profile (06/21/16 02:42) Complete Blood Count With Diff (06/21/16 02:42) Magnesium (Mg) (06/21/16 02:42) Prothrombin Time / Inr (Pt) (06/21/16 02:42) Act Partial Throm Time (Ptt) (06/21/16 02:42) Troponin I (06/21/16 02:42) Chest, Single Ap (06/21/16 02:42) Ecg Monitoring (06/21/16 02:42) Iv Access Insert/Monitor (06/21/16 02:42) Oximetry (06/21/16 02:42) Oxygen Administration (06/21/16 02:42) Sodium Chloride 0.9% Flush (Ns Flush) (06/21/16 02:45) Acetaminophen (Tylenol) (06/21/16 03:00) CKMB (06/21/16 02:30) CKMB% (06/21/16 02:30) Admit Order (Ed Use Only) (06/21/16 04:29) Consult Cardiology (06/21/16 ) Labs Laboratory Tests Test 06/21/16 02:30 White Blood Count 6.1 TH/MM3 Red Blood Count 4.25 MIL/MM3 Hemoglobin 13.5 GM/DL Hematocrit 38.5 % Mean Corpuscular Volume 90.6 FL Mean Corpuscular Hemoglobin 31.7 PG Mean Corpuscular Hemoglobin 35.0 % Concent Red Cell Distribution Width 14.0 % Platelet Count 233 TH/MM3 Mean Platelet Volume 9.1 FL Neutrophils (%) (Auto) 65.2 % Lymphocytes (%) (Auto) 25.5 % Monocytes (%) (Auto) 6.4 % Eosinophils (%) (Auto) 1.9 % Basophils (%) (Auto) 1.0 % Neutrophils # (Auto) 4.0 TH/MM3 Lymphocytes # (Auto) 1.6 TH/MM3 Monocytes # (Auto) 0.4 TH/MM3 Eosinophils # (Auto) 0.1 TH/MM3 Basophils # (Auto) 0.1 TH/MM3 CBC Comment DIFF FINAL Differential Comment Prothrombin Time 10.1 SEC Prothromb Time International 0.9 RATIO Ratio Activated Partial 25.2 SEC Thromboplast Time Sodium Level 139 MEQ/L Potassium Level 3.9 MEQ/L Chloride Level 105 MEQ/L Carbon Dioxide Level 27.7 MEQ/L Anion Gap 6 MEQ/L Blood Urea Nitrogen 13 MG/DL Creatinine 0.91 MG/DL Estimat Glomerular Filtration 70 ML/MIN Rate Random Glucose 94 MG/DL Calcium Level 9.0 MG/DL Magnesium Level 2.4 MG/DL Total Creatine Kinase 284 U/L Creatine Kinase MB 3.6 NG/ML Creatine Kinase MB % 1.3 % Troponin I LESS THAN 0.02 NG/ML MDM Medical Decision Making Medical Screen Exam Complete: Yes Emergency Medical Condition: Yes Medical Record Reviewed: Yes Differential Diagnosis NSTEMI, unstable angina, coronary vasospasm, PE, PTX, aortic dissection, pericarditis, myocarditis, endocarditis, PNA, esophageal disease, aneurysm, musculoskeletal etiologies, anxiety, cocaine/sympathomimetic abuse Narrative Course CBC & BMP Diagram 06/21/16 02:30 Troponin less than 0.02 EKG reveals a normal sinus rhythm with normal axis and intervals no acute ischemic injury pattern and a rate of 60 Last 24 hours Impressions Chest X-Ray 06/21/16 0242 Signed Impressions: Service Date/Time: June 00:58 - CONCLUSION: No acute disease. Kit Kwan MD Patient will be admitted for cardiology evaluation and possible catheterization. Her pain has been controlled. Discussed with Dr. Monet for the hospitalist service. Diagnosis Primary Impression: Chest pain in adult Admitting Information Admitting Physician Requests: Observation Scripts No Active Prescriptions or Reported Meds Dougie Bey MD Jun 21, 2016 03:10
[2016-06-21 03:16] LABS: BASOPHIL # 0.1 TH/MM3 (0-0.2); EOSINOPHIL # 0.1 TH/MM3 (0-0.4); EOSINOPHIL % 1.9 % (0.0-4.0); HEMATOCRIT 38.5 % (35.0-46.0); HEMO FLAGS DIFF FINAL; LYMPH % 25.5 % (9.0-44.0); LYMPHOCYTE # 1.6 TH/MM3 (1.0-4.8); MEAN CELL VOLUME 90.6 FL (80.0-100.0); MEAN CORPUSCULAR HEMOGLOBIN 31.7 PG (27.0-34.0); MONO % 6.4 % (0.0-8.0); NEUT % 65.2 % (16.0-70.0); PLATELET COUNT 233 TH/MM3 (150-450); RED BLOOD COUNT 4.25 MIL/MM3 (4.00-5.30); WHITE BLOOD COUNT 6.1 TH/MM3 (4.0-11.0)
--- NOTE | 2016-06-21 03:17 | RADRPT ---
EXAM DATE/TIME: 06/21/2016 00:58 [facility] COMPARISON: CHEST SINGLE AP, June 14, 2016, 1:24. INDICATIONS : Chest pain. MEDICAL HISTORY : None. SURGICAL HISTORY : Tubal ligation. ENCOUNTER: Initial ACUITY: 1 day PAIN SCORE: 3/10 LOCATION: Bilateral chest FINDINGS: A single view of the chest demonstrates the lungs to be symmetrically aerated without evidence of mas s, infiltrate or effusion. The cardiomediastinal contours are unremarkable. Osseous structures are intact. CONCLUSION: No acute disease. Kit Kwan MD on June 21, 2016 at 3:16 Board Certified Radiologist. This report was verified electronically.
[2016-06-21 03:28] LABS: APTT (PATIENT) 25.2 SEC (24.3-30.1); INTERNATIONAL NORMALIZED RATIO 0.9 RATIO; PROTHROMBIN TIME - PATIENT 10.1 SEC (9.8-11.6)
[2016-06-21 03:34] LABS: ANION GAP 6 MEQ/L (5-15); BICARBONATE 27.7 MEQ/L (21.0-32.0); BLOOD UREA NITROGEN 13 MG/DL (7-18); CHLORIDE 105 MEQ/L (98-107); GLOMERULAR FILTRATION RATE 70 ML/MIN (>89); MAGNESIUM 2.4 MG/DL (1.5-2.5); POTASSIUM 3.9 MEQ/L (3.5-5.1); SODIUM (NA) 139 MEQ/L (136-145)
[2016-06-21 03:36] LABS: CREATINE KINASE 284 U/L (26-192)
[2016-06-21 03:48] LABS: CKMB 3.6 NG/ML (0.5-3.6)
[2016-06-21] MEDS ORDERED: NITROGLYCERIN 0.4 MG SL 25 TABS/BTL SL PRN (05:30)
[2016-06-21] MEDS ORDERED: ACETAMINOPHEN 500 MG CPLT PO PRN (05:30)
[2016-06-21] MEDS ORDERED: SODIUM CHLORIDE 0.9% FLUSH 5 ML FLUSH IV PRN (05:30)
[2016-06-21] MEDS ORDERED: HEPARIN SODIUM - SQ 10,000 UNITS/ML VIAL SQ SCH (06:00)
--- NOTE | 2016-06-21 08:08 | EKG ---
Date Performed: 06/21/2016 Time Performed: 02:08:08 PTAGE: 35 years EKG: Sinus rhythm NORMAL ECG NO SIGNIFICANT CHANGE FROM PRIOR ELECTROCARDIOGRAM. PREVIOUS TRACING : 06/14/2016 07.39 DOCTOR: John Bowman Interpretating Date/Time 06/21/2016 08:07:13
[2016-06-21] MEDS: SODIUM CHLORIDE 0.9% FLUSH 5 ML FLUSH IV SCH ×2 (08:53→20:04)
[2016-06-21 10:03] LABS: CREATINE KINASE 164 U/L (26-192)
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
--- NOTE | 2016-06-21 13:23 | MB ---
cc: CHRIS OLMOS DO DATE OF CONSULTATION: 06/21/2016 REASON FOR CONSULTATION Chest pain with a history of abnormal stress test. HISTORY OF PRESENT ILLNESS Stella Way is a pleasant 35-year-old female who presented to [facility] on June 21, 2016 with the complaint of chest pain. She has had two previous episodes where she has presented to the ER. Originally she presented May 31, 2016 with complaint of chest pain. At that time the chest pain went away and she had to sign herself out AMA as she was planning to move the next day and could not wait for the chest pain unit and possible stress testing. Then she presented again June 14, 2016 and underwent stress testing which showed an anterior apical perfusion abnormality which is partially reversible at rest, considered an intermediate study. At that time I saw her and offered her cardiac catheterization the next day but she had no one at home to watch her daughter who is 2 years old and had to once again sign out AMA. Since that time she has been at home and started noticing chest pain coming on. The chest pain woke her up while she was asleep. She states that it is a squeezing on the left side of her chest that radiates somewhat to her left arm. She continues to have the pain at this point off and on. The pain sometimes does hurt more with deep breathing. She denies shortness of breath with the pain. PAST MEDICAL HISTORY 1. Asthma. 2. Kidney stones. 3. Previous history of IV drug abuse with Dilaudid for which she has been clean for 4 months. PAST SURGICAL HISTORY 1. IVC filter placement for an unknown cause. 2. Tubal ligation. 3. . 4. Lithotripsy. 5. Sinus surgery. ALLERGIES 1. ASPIRIN - CAUSES HIVES. 2. ERYTHROMYCIN. 3. DARVOCET. MEDICATIONS Denies. FAMILY HISTORY Positive for cardiovascular problems. Unknown if this is truly premature coronary artery disease as the father at the age of 42 from a massive heart attack but from unknown causes. Brother at the age of 35 from a massive heart attack but per the patient he was also an accidental methadone overdose. Per the patient he also had cardiomegaly from an unknown cause. SOCIAL HISTORY She is currently unemployed. She smokes a quarter pack of cigarettes daily and is currently trying to quit. Denies alcohol. She previously was prescribed pain killers and then when she found her brother she started IV Dilaudid but has currently not used in the past 4 months. REVIEW OF SYSTEMS 14 systems were reviewed including osteopathic pertinent positives and negatives above, otherwise negative. PHYSICAL EXAMINATION VITAL SIGNS: Temperature 98.1, heart rate 64, blood pressure 120/61, respirations 16, pulse ox 98% on room air. GENERAL: The patient appears well, in no acute distress, alert, awake and oriented x3. HEENT: Extraocular muscles intact. Mucous membranes moist. NECK: Neck is supple. No JVD at 45 degrees. No carotid bruits heard bilaterally. Carotid upstroke is brisk in nature. HEART: Heart is regular rate and rhythm. Positive first and second heart sounds with no murmurs, gallops or rubs. PMI is nondisplaced. LUNGS: Clear to auscultation bilaterally. No wheezes, rales or rhonchi. ABDOMEN: Soft, nontender, nondistended. No organomegaly noted. EXTREMITIES: Show no clubbing, cyanosis or edema. Femoral and distal pulses intact bilaterally. NEUROLOGIC: No focal deficits. SKIN: Warm, dry and intact. OSTEOPATHIC: No kyphoscoliosis, lordosis or paraspinal tender points. LABORATORY FINDINGS Hemoglobin 13.5, hematocrit 38.5, platelets 233. Troponin negative x2. Potassium 3.9, BUN 13, creatinine 0.91. Pharmacologic nuclear stress test (June 14, 2016) anterior apical perfusion abnormality which is partially reversible at rest, normal wall motion and ejection fraction. Intermediate risk stress test. Electrocardiogram (June 21, 2016 at 02:08) normal sinus rhythm, no acute ST-T wave changes. IMPRESSION 1. Chest pain somewhat atypical for coronary insufficiency. 2. Pharmacologic nuclear stress test (June 14, 2016) with a small partially reversible stress induced perfusion abnormality in the anterior apical region of the left ventricle, ejection fraction 59%. Intermediate risk category stress test. 3. Strong family history of cardiovascular disease, although unsure if true premature coronary artery disease. 4. Tobacco abuse. 5. History of IV Dilaudid use for which she states she has been clean for 4 months. 6. Anxiety. RECOMMENDATIONS 1. Stella has an area on her stress test which shows possible myocardium at risk. Because of this as well as her chest pain we will plan on a cardiac catheterization in the morning from a right radial standpoint. 2. She has an ASPIRIN ALLERGY which causes hives. My suggestion would be that she undergo diagnostic cardiac catheterization and if a significant lesion is noted she would undergo aspirin desensitization and then have a staged procedure for her intervention. 3. She will be n.p.o. after midnight. 4. We will obtain a 2-D echo to look at her overall left ventricular function, cardiac structure and possible valvulopathies. 5. I spoke to her for greater than 3 minutes about tobacco cessation for which she is currently trying to quit. Thank you for allowing me to see Stella Way. If there are any questions, please do not hesitate to call. Chris Olmos DO VGP/TLL /12:16 PM /12:56 PM MTDVinnie
--- NOTE | 2016-06-21 13:41 | EKG ---
Date Performed: 06/21/2016 Time Performed: 08:46:51 PTAGE: 35 years EKG: Sinus rhythm NORMAL ECG PREVIOUS TRACING : 06/21/2016 02.08 DOCTOR: John Bowman Interpretating Date/Time 06/21/2016 13:38:59
[2016-06-21 15:42] LABS: CREATINE KINASE 180 U/L (26-192)
[2016-06-21] MEDS ORDERED: IBUPROFEN 200 MG TAB PO PRN (17:45)
[2016-06-21] MEDS: KETOROLAC TROMETHAMINE 30 MG/ML (IVP) VIAL IV PUSH PRN (20:03)
[2016-06-21] MEDS: ACETAMINOPHEN 325 MG TAB PO PRN (22:12)
[2016-06-22 00:24] VITALS: BP 127/81; PULSE 50; RESP 18; TEMP 98; O2SAT 97
[2016-06-22] MEDS: KETOROLAC TROMETHAMINE 30 MG/ML (IVP) VIAL IV PUSH PRN ×2 (02:45→09:57)
[2016-06-22 04:00] VITALS: BP 142/81; PULSE 65; RESP 18; TEMP 97.9; O2SAT 97
[2016-06-22 07:02] LABS: AUTOMATED NEUTROPHIL # 2.5 TH/MM3 (1.8-7.7); BASOPHIL # 0.1 TH/MM3 (0-0.2); BASOPHIL % 1.4 % (0.0-2.0); EOSINOPHIL # 0.1 TH/MM3 (0-0.4); EOSINOPHIL % 2.1 % (0.0-4.0); HEMATOCRIT 35.8 % (35.0-46.0); LYMPH % 29.6 % (9.0-44.0); LYMPHOCYTE # 1.4 TH/MM3 (1.0-4.8); MEAN CELL VOLUME 91.1 FL (80.0-100.0); MEAN CORPUSCULAR HEMOGLOBIN 31.4 PG (27.0-34.0); MEAN CORPUSCULAR HGB CONC 34.4 % (32.0-36.0); MONO % 13.1 % (0.0-8.0); NEUT % 53.8 % (16.0-70.0); PLATELET COUNT 169 TH/MM3 (150-450); RED BLOOD COUNT 3.93 MIL/MM3 (4.00-5.30); RED CELL DISTRIBUTION WIDTH 14.2 % (11.6-17.2); WHITE BLOOD COUNT 4.6 TH/MM3 (4.0-11.0)
[2016-06-22 07:03] LABS: BICARBONATE 25.1 MEQ/L (21.0-32.0)
[2016-06-22 07:07] LABS: POTASSIUM 4.2 MEQ/L (3.5-5.1)
[2016-06-22 07:54] LABS: HEMO FLAGS AUTO DIFF
[2016-06-22 07:55] LABS: PLATELET ESTIMATE SMEAR NORMAL (NORMAL); PLATELET MORPHOLOGY NORMAL (NORMAL); SCAN/DIFF AUTO DIFF CONFIRMED
[2016-06-22 08:00] VITALS: BP 144/85; PULSE 63; RESP 18; TEMP 98; O2SAT 97
--- NOTE | 2016-06-22 08:23 | HHI.PR ---
Subjective Remarks Says she id not have any chest pain overnight. She is complaining of back pain, chronic. She needs to follow up as OP with pain management. No diaphoresis, sob , n/v/d/c. Objective Vitals Vital Signs Date Time Temp Pulse Resp B/P Pulse Ox O2 Delivery O2 Flow Rate FiO2 06/22/16 04:00 97.9 65 18 142/81 97 06/22/16 00:24 98.0 50 18 127/81 97 06/21/16 21:23 98.2 61 16 125/70 97 06/21/16 17:40 76 06/21/16 16:00 98.1 60 18 140/84 98 06/21/16 14:10 98.0 55 18 143/95 98 06/21/16 11:00 64 16 120/61 98 Room Air 06/21/16 09:05 58 16 125/75 98 Room Air I/O 06/21/16 06/21/16 06/21/16 06/22/16 06/22/16 06/22/16 07:00 15:00 23:00 07:00 15:00 23:00 Intake Total 402 ml 480 ml 0 ml Output Total 0 ml Balance 402 ml 480 ml 0 ml Intake Oral 400 ml 480 ml 0 ml IV Total 2 ml Output Urine Total 0 ml # Voids 5 6 # Bowel Movements 1 0 Result Diagram: 06/22/16 0527 06/22/16 0527 Imaging Last Impressions Chest X-Ray 06/21/16 0242 Signed Impressions: Service Date/Time: June 00:58 - CONCLUSION: No acute disease. Kit Kwan MD Objective Remarks GENERAL: Well-developed well-nourished. In no acute distress. SKIN: Warm and dry. No lesions noted. HEENT: Normocephalic. Pupils equal and round. Mucous membranes pink and moist. CARDIOVASCULAR: Regular rate and rhythm. No murmur appreciated. RESPIRATORY: No accessory muscle use. Clear to auscultation. Breath sounds equal bilaterally. GASTROINTESTINAL: Abdomen soft, non-tender, nondistended. Bowel sounds x4. MUSCULOSKELETAL: No obvious deformities. No clubbing or cyanosis. No edema. NEUROLOGICAL: Awake and alert. No focal neurological deficits. Moves upper and lower extremities spontaneously. Normal speech. PSYCHIATRIC: Appropriate mood and affect; insight and judgment normal. A/P Problem List: (1) Chest pain in adult ICD Code: R07.9 Status: Acute Assessment and Plan 35-year-old female with a past medical history of mild asthma, IVDA clean 4 months, nephrolithiasis and recent positive stress test who presented with recurrent chest pain Chest pain: Moderate risk stress test with reversible area suggesting ischemia last week. Currently troponins are negative 2. EKG personally reviewed, NSR. Chest x-ray unremarkable. Cardiology consulted, seen by Dr Jennifer Hartley plan is for cardiac catheterization 06/22. 2D echocardiogram pending. Patient is allergic to aspirin. Documented heart rate is low as 58, would avoid beta blockers for now. Nitroglycerin as needed. Went for cath discussed with Dr Bey cardiology and she has a clean cath . Plan for 2D ECHO per Dr Bey cards can be DC if echo is normal 2D ECHO reviewed and normal. Tobacco abuse: Patient counseled on cessation. DVT prophylaxis: SCDs Plan to dC patient home to follow up as OP with PCP and pain management for chronic back pain if need. Discharge Planning DC home To follow up as OP with PCP and consultants Diet regular as tolerated Meds per med reconciliations Activity ad martha as tolerated Radha Nolan MD Jun 22, 2016 08:23
[2016-06-22] MEDS: SODIUM CHLORIDE 0.9% FLUSH 5 ML FLUSH IV SCH (09:12)
[2016-06-22] MEDS: ACETAMINOPHEN 325 MG TAB PO PRN (09:12)
[2016-06-22 11:03] VITALS: PULSE 55
[2016-06-22] MEDS ORDERED: methylPREDNISolone SOD SUCC 125 MG/2 ML VIAL ONE (11:11)
[2016-06-22] MEDS ORDERED: FAMOTIDINE 20 MG/2 ML VIAL ONE (11:11)
[2016-06-22] MEDS ORDERED: HEPARIN SODIUM - IV 10,000 UNITS/10 ML VIAL ONE (11:11)
[2016-06-22] MEDS ORDERED: VERAPAMIL HCL 5 MG/2 ML VIAL ONE ×2 (11:11→11:17)
[2016-06-22] MEDS ORDERED: diphenhydrAMINE HCL 50 MG/ML VIAL ONE (11:11)
[2016-06-22] MEDS ORDERED: HEPARIN-NS/PF INJ 500 ML ONE (11:16)
[2016-06-22] MEDS ORDERED: NITROGLYCERIN INJ 5 ML ONE (11:16)
[2016-06-22] MEDS ORDERED: MIDAZOLAM HCL 2 MG/2 ML VIAL ONE (11:41)
[2016-06-22 12:00] VITALS: BP_SYST 135; BP_SYST 151; BP_SYST 153; BP_DIAS 85; BP_DIAS 86; PULSE 61; PULSE 87; PULSE 89; RESP 20; TEMP 97.9; O2SAT 99
[2016-06-22] MEDS ORDERED: MISC INFORMATION XX ONE (12:30)
[2016-06-22] MEDS ORDERED: SODIUM CHLORIDE 0.9% FLUSH 5 ML FLUSH IVF PRN (12:30)
[2016-06-22] MEDS ORDERED: IOHEXOL 350 MG/ML 50 ML BTL (for Cath Lab) OTHER ONE (12:32)
[2016-06-22] MEDS ORDERED: hydrALAZINE HCL 20 MG/ML VIAL ONE (13:22)
[2016-06-22] MEDS ORDERED: hydrALAZINE HCL 20 MG/ML VIAL IV PUSH ONE (13:45)
--- NOTE | 2016-06-22 14:11 | PD.CARD.PN ---
Subjective Subjective Remarks Doing well post-op, no chest pain Objective Medications Current Medications Medications (Trade) Dose Ordered Sig/Jay Route Start Time Stop Time Status Last Admin (NS Flush) 2 ml BID IV 06/21/16 09:00 06/22/16 09:12 (NS Flush) 2 ml UNSCH PRN IV 06/21/16 05:30 06/22/16 09:58 (Nitrostat Sl) 0.4 mg Q5M PRN SL 06/21/16 05:30 (Tylenol) 650 mg Q4H PRN PO 06/21/16 17:45 06/22/16 09:12 (Advil) 200 mg Q4H PRN PO 06/21/16 17:45 (Toradol Inj) 15 mg Q6H PRN IV PUSH 06/21/16 17:45 06/26/16 17:44 06/22/16 09:57 (NS Flush) 2 ml BID IVF 06/22/16 21:00 (NS Flush) 2 ml UNSCH PRN IVF 06/22/16 12:30 Vital Signs / I&O Vital Signs Date Time Temp Pulse Resp B/P Pulse Ox O2 Delivery O2 Flow Rate FiO2 06/22/16 12:00 87 135/85 06/22/16 12:00 97.9 61 20 151/86 99 06/22/16 12:00 89 153/86 06/22/16 11:03 55 06/22/16 08:00 98.0 63 18 144/85 97 06/22/16 04:00 97.9 65 18 142/81 97 06/22/16 00:24 98.0 50 18 127/81 97 06/21/16 21:23 98.2 61 16 125/70 97 06/21/16 17:40 76 06/21/16 16:00 98.1 60 18 140/84 98 I/O 06/21/16 06/21/16 06/21/16 06/22/16 06/22/16 06/22/16 07:00 15:00 23:00 07:00 15:00 23:00 Intake Total 402 ml 480 ml 0 ml 5 ml Output Total 0 ml Balance 402 ml 480 ml 0 ml 5 ml Intake Oral 400 ml 480 ml 0 ml IV Total 2 ml 5 ml Output Urine Total 0 ml # Voids 5 6 # Bowel Movements 1 0 Physical Exam GENERAL: NAD, AAOx3 SKIN: Warm and dry. HEAD: Atraumatic. Normocephalic. EYES: Pupils equal and round. No scleral icterus. No injection or drainage. ENT: No nasal bleeding or discharge. Mucous membranes pink and moist. NECK: Trachea midline. No JVD. CARDIOVASCULAR: Regular rate and rhythm. RESPIRATORY: No accessory muscle use. Clear to auscultation. Breath sounds equal bilaterally. GASTROINTESTINAL: Abdomen soft, non-tender, nondistended. Hepatic and splenic margins not palpable. MUSCULOSKELETAL: Extremities without clubbing, cyanosis, or edema. No obvious deformities. NEUROLOGICAL: Awake and alert. No obvious cranial nerve deficits. Motor grossly within normal limits. Five out of 5 muscle strength in the arms and legs. Normal speech. PSYCHIATRIC: Appropriate mood and affect; insight and judgment normal. Laboratory Laboratory Tests Test 06/21/16 06/22/16 14:40 05:27 Total Creatine Kinase 180 U/L Troponin I LESS THAN 0.02 NG/ML White Blood Count 4.6 TH/MM3 Red Blood Count 3.93 MIL/MM3 Hemoglobin 12.3 GM/DL Hematocrit 35.8 % Mean Corpuscular Volume 91.1 FL Mean Corpuscular Hemoglobin 31.4 PG Mean Corpuscular Hemoglobin 34.4 % Concent Red Cell Distribution Width 14.2 % Platelet Count 169 TH/MM3 Mean Platelet Volume 10.3 FL Neutrophils (%) (Auto) 53.8 % Lymphocytes (%) (Auto) 29.6 % Monocytes (%) (Auto) 13.1 % Eosinophils (%) (Auto) 2.1 % Basophils (%) (Auto) 1.4 % Neutrophils # (Auto) 2.5 TH/MM3 Lymphocytes # (Auto) 1.4 TH/MM3 Monocytes # (Auto) 0.6 TH/MM3 Eosinophils # (Auto) 0.1 TH/MM3 Basophils # (Auto) 0.1 TH/MM3 CBC Comment AUTO DIFF Differential Comment AUTO DIFF CONFIRMED Platelet Estimate NORMAL Platelet Morphology Comment NORMAL Sodium Level 142 MEQ/L Potassium Level 4.2 MEQ/L Chloride Level 109 MEQ/L Carbon Dioxide Level 25.1 MEQ/L Anion Gap 8 MEQ/L Blood Urea Nitrogen 9 MG/DL Creatinine 0.89 MG/DL Estimat Glomerular Filtration 72 ML/MIN Rate Random Glucose 87 MG/DL Calcium Level 8.6 MG/DL Assessment and Plan Problem List: (1) Chest pain in adult (2) Intravenous drug abuse (3) Smoker Assessment and Plan 1) No significant CAD by cath 2) Echo pending, if no problems can be discharged home from a cardiovascular standpoint 3) Tobacco cessation, which she is attempting Chris Bey DO Jun 22, 2016 14:11
--- NOTE | 2016-06-22 14:52 | EC ---
Study Study Date:06/22/2016 STUDY CONCLUSIONS SUMMARY - Left ventricle: The cavity size was normal. Wall thickness was normal. Systolic function was normal. The estimated ejection fraction was in the range of 50% to 55%. Wall motion was normal; there were no regional wall motion abnormalities. - Aortic valve: Valve area: 1.95cm^2 (Vmax). - Mitral valve: Mild regurgitation. - Pulmonic valve: Peak gradient: 10mm Hg (S). If LV function is below 40, please consider prescribing an ACEI or ARB or document rationale for non-use. PROCEDURE DATA STUDY STATUS: Elective. Procedure: Transthoracic echocardiography. Image quality was good. Scanning was performed from the parasternal, apical, and subcostal acoustic windows. Study completion: The patient tolerated the procedure well. Transthoracic echocardiography. M-mode, complete 2D, complete spectral Doppler, and color Doppler. Height: Height: 60in. Weight: Weight: 208.6lb. Body mass index: BMI: 40.8kg/m^2. Body surface area: BSA: 1.9m^2. Patient status: Inpatient. CARDIAC ANATOMY LEFT VENTRICLE: The cavity size was normal. Wall thickness was normal. Systolic function was normal. The estimated ejection fraction was in the range of 50% to 55%. Wall motion was normal; there were no regional wall motion abnormalities. AORTIC VALVE: Trileaflet; normal thickness leaflets. Doppler: Transvalvular velocity was within the normal range. There was no stenosis. No regurgitation. Valve area: 1.95cm^2 (Vmax). Indexed valve area: 1.03cm^2/m^2 (Vmax). Mean gradient: 9mm Hg (S). Peak gradient: 16mm Hg (S). AORTA: Aortic root: The aortic root was normal in size. MITRAL VALVE: Structurally normal valve. Doppler: Transvalvular velocity was within the normal range. There was no evidence for stenosis. Mild regurgitation. LEFT ATRIUM: The atrium was normal in size. RIGHT VENTRICLE: The cavity size was normal. Wall thickness was normal. PULMONIC VALVE: Doppler: Transvalvular velocity was within the normal range. There was no evidence for stenosis. No regurgitation. Peak gradient: 10mm Hg (S). TRICUSPID VALVE: Structurally normal valve. Doppler: Transvalvular velocity was within the normal range. Trace regurgitation. PULMONARY ARTERY: The main pulmonary artery was normal-sized. Systolic pressure was within the normal range. RIGHT ATRIUM: The atrium was normal in size. PERICARDIUM: There was no pericardial effusion. SYSTEMIC VEINS: Inferior vena cava: The vessel was normal in size. Patient weight: 208.6lb _Ejection fraction:_ 65-75% _Fractional shortening:_ 32% up to 5Kg 5-11.5Kg 11.6-22.9Kg 23-45Kg 45-57Kg Aortic Root 7-13 <17 13-22 17-27 17-27 LA diam 6-13 <23 24-38 33-47 37-40 RVID 10-17 7-15 7-15 7-18 8-17 LVIDd 12-22 <32 24-38 33-47 37-40 LVPW 2-4 3-6 5-7 6-8 7-8 IVS 2-4 3-6 5-7 6-8 7-8 BASIC MEASUREMENTS ADULT NORMAL Left ventricle LV internal dimension, ED, chordal *53.7 mm 43-52 level, PLAX LV internal dimension, ES, chordal *41.8 mm 23-38 level, PLAX Fractional shortening, chordal level, *22 % >29 PLAX LV posterior wall thickness, ED 8.98 mm IVS/LVPW ratio, ED 0.92 <1.3 Ventricular septum Septal thickness, ED 8.27 mm Aortic valve Leaflet separation 19 mm 15-26 BASIC MEASUREMENTS ADULT NORMAL Aortic valve Leaflet separation 19 mm 15-26 Aorta Root diameter, ED 29 mm 20-37 Left atrium Anterior-posterior dimension, ES 31 mm 19-40 Anterior-posterior dimension index, ES 1.63 cm/m^2 <2.2 LA/aortic root ratio 1.07 DOPPLER MEASUREMENTS ADULT NORMAL Main pulmonary artery Pressure, S 14 mm Hg =30 Aortic valve Peak velocity, S 203 cm/s Mean velocity, S 136 cm/s VTI, S 38.6 cm Mean gradient, S 9 mm Hg Peak gradient, S 16 mm Hg Valve area, Vmax 1.95 cm^2 Valve area index, Vmax 1.03 cm^2/m^2 Mitral valve Peak E-wave velocity 69.6 cm/s Peak A-wave velocity 55.8 cm/s Deceleration time *261 ms 150-230 Peak E/A ratio 1.2 Maximal regurgitant velocity 227 cm/s Tricuspid valve Regurgitant peak velocity 186 cm/s Peak RV-RA gradient, S 14 mm Hg Maximal regurgitant velocity 186 cm/s Systemic veins Estimated CVP 10 mm Hg Right ventricle RV pressure, S 24 mm Hg <30 Pulmonic valve Peak velocity, S 159 cm/s Peak gradient, S 10 mm Hg LEGEND: Mean values are shown as u=mean value. Asterisk (*) petty values outside specified normal range. Prepared and signed by Clint Murillo [id number]
--- NOTE | 2016-06-22 15:05 | HHI.DCPOC ---
Discharge Care Plan Goals to Promote Your Health * To prevent worsening of your condition and complications * To maintain your health at the optimal level Directions to Meet Your Goals Take your medications as prescribed Follow your dietary instruction Follow activity as directed Keep your appointments as scheduled Take your immunizations and boosters as scheduled If your symptoms worsen call your PCP, if no PCP go to Urgent Care Center or Emergency Room Smoking is Dangerous to Your Health. Avoid second hand smoke Call the 24-hour hour crisis hotline for domestic abuse at Radha Nolan MD Jun 22, 2016 15:05
[2016-06-22] MEDS ORDERED: SODIUM CHLORIDE 0.9% FLUSH 5 ML FLUSH IVF SCH (21:00)
--- NOTE | 2016-06-23 17:23 | MA ---
cc: CHRIS OLMOS DO DATE: 06/23/2016. PROCEDURE PERFORMED: Left heart catheterization, coronary angiogram. PREPROCEDURE DIAGNOSIS: Atypical chest pain, abnormal stress test. POSTPROCEDURE DIAGNOSIS: Minimal coronary artery disease. MEDICATIONS: 1. Solu-Medrol 125 milligrams. 2. Benadryl 50 milligrams. 3. Pepcid 20 milligrams. 4. Verapamil 2.5 milligrams. 5. Nitro 200 micrograms. 6. Heparin 3800 units. 7. Versed 0.5 milligram. ESTIMATED BLOOD LOSS: 10 mL. CONTRAST USED: 50 mL. PROCEDURAL SUMMARY: Stella Monreal is a pleasant 35-year-old female who originally presented with atypical chest pain. She had previously been admitted with chest pain and underwent stress testing and at that time was found to have an anterior apical perfusion mismatch. At that time, she was unable to undergo cardiac catheterization and left AMA. She then presented again with chest pain and now wanted to undergo cardiac catheterization. Risks, benefits and alternatives were explained to her and she consented as such. She was prepped for her dye allergy using Solu-Medrol, Benadryl and Pepcid. She was brought to the lab and prepped in the usual sterile fashion. Right radial artery was accessed using a modified Seldinger technique and placement of a 5/6 slender sheath. The sheath was easily aspirated and flushed and then she was given a radial cocktail of verapamil, nitroglycerin and heparin. The JR-4 was advanced to the ascending aorta over a J-wire and this was used to cross the aortic valve for a measurement of pressures in the left ventricle. Left ventricular end diastolic pressure was 10. This was pulled back across the aortic valve showing no significant gradient of aortic stenosis. This was used for selective angiography of the right coronary artery. The right coronary artery is a dominant vessel which shows mild luminal irregularities throughout. The JR-4 was then exchanged for a JL-3.5. This was used for selective angiography of the left coronary system. Left main is a relatively normal-appearing vessel and gives off a left anterior descending and left circumflex. The left anterior descending has a 20% lesion ostially and distally tapers down to a small vessel towards the apex. It does not appear to have any significant disease throughout. It does give off one major diagonal with no significant disease. The left circumflex is a relatively normal-appearing vessel which gives off two major obtuse marginals and does not have any significant disease throughout. The JL-3.5 was then removed over a J-wire. Radial band was placed over the radial sheath, air was placed in and removal of the radial sheath creating hemostasis. The patient left the lab engineer cardiovascularly stable. IMPRESSION: 1. False-positive pharmacologic nuclear stress test. 2. No significant coronary artery disease. 3. Tobacco abuse. RECOMMENDATIONS: 1. Stella's cardiac catheterization shows no significant disease. 2. Her chest pain does not appear to be due to coronary insufficiency. 3. A 2-D echocardiogram will be checked before discharge and if no significant issues are found, she may be discharged from a cardiovascular standpoint. I did explain to her that she needs to stop tobacco as this may progress her minimal coronary artery disease. She understands and has been attempting to cut down over the past few months. Thank you for allowing me to see Stella Way. If there are any questions, please do not hesitate to call. Chris Olmos DO VGP/ESTELITA /2:43 PM /5:16 PM
== END 2016-06-22 15:57 | disposition home or self-care (01) | DRG 287 ==
LOC: NEPE 01:10 → NEDA 04:30 → NEDH 09:59 → N04A 13:55
PROVIDERS: ADMIT Hospitalist; ATTEND Hospitalist
PROC: B2111ZZ Fluoroscopy of Multiple Coronary Arteries using Low Osmolar Contrast (ICD-10-PCS; 2016-06-22)
PROC: 4A023N7 Measurement of Cardiac Sampling and Pressure, Left Heart, Percutaneous Approach (ICD-10-PCS; principal; 2016-06-22 10:00)
DX: R07.2 Precordial pain (principal); F41.9 Anxiety disorder, unspecified; R94.39 Abnormal result of other cardiovascular function study; J45.909 Unspecified asthma, uncomplicated; F17.210 Nicotine dependence, cigarettes, uncomplicated; F19.10 Other psychoactive substance abuse, uncomplicated; Z82.49 Family history of ischemic heart disease and other diseases of the circulatory system; Z88.1 Allergy status to other antibiotic agents; Z88.5 Allergy status to narcotic agent; Z88.6 Allergy status to analgesic agent; Z91.013 Allergy to seafood
CPT/HCPCS: 71010; 80048; 82550; 82552; 83735; 84484; 85025; 85610; 85730; 93005; 93306; 93454; C1769; C1893; J0360; J1200; J1644; J1885; J2250; J2930; J3010; Q9967

== ENCOUNTER 2016-06-23 00:24 | Emergency (ER) | payer SELFPAY ==
[~2016-06-23] VITALS: Ht 172.7 cm; Wt 96.0 kg
[2016-06-23 00:26] VITALS: BP 149/88; PULSE 114; RESP 20; TEMP 98.1; O2SAT 98
--- NOTE | 2016-06-23 02:19 | RADRPT ---
EXAM DATE/TIME: 06/23/2016 01:59 [facility] COMPARISON: CHEST SINGLE AP, June 21, 2016, 0:58. INDICATIONS : Pt having chest pain causing pain down right arm. MEDICAL HISTORY : None. SURGICAL HISTORY : Tubal ligation. ENCOUNTER: Initial ACUITY: 1 day PAIN SCORE: 6/10 LOCATION: Bilateral chest FINDINGS: A single view of the chest demonstrates the lungs to be symmetrically aerated without evidence of mas s, infiltrate or effusion. The cardiomediastinal contours are unremarkable. Osseous structures are intact. CONCLUSION: No evidence of acute cardiopulmonary disease. Moe Shipley MD on June 23, 2016 at 2:17 Board Certified Radiologist. This report was verified electronically.
--- NOTE | 2016-06-23 02:24 | PD ---
HPI Chief Complaint: Pain: Acute or Chronic Time Seen by Provider: 01:26 Travel History International Travel<30 days: No Contact w/Intl Traveler<30days: No Traveled to known affect area: No History of Present Illness HPI 35 year-old woman, presents emergent heart complaining of right arm pain. She had a heart catheterization done through her right radial artery earlier today. States she felt fine initially and woke up with severe pain throughout her arm. States she otherwise has been feeling generally well and healthy. No other complaints. She's had ongoing chest pain for the past several weeks, and has a family history of heart disease. She had a mildly abnormal stress test with persistent symptoms related to heart catheterization which was reportedly normal. History Past Medical History Medical History: Denies Significant Hx LMP: 06/01/16 : 1 Para: 1 Social History Alcohol Use: No Tobacco Use: Yes (05/16PPD) Allergies-Medications (Allergen,Severity, Reaction): Coded Allergies: Iodine (Verified Allergy, Severe, THROAT SWELLS, HIVES, 06/23/16) Seafood (Verified Allergy, Severe, THROAT SWELLS, HIVES, 06/23/16) Aspirin (Verified Allergy, Intermediate, HIVES, VOMITING, 06/23/16) Darvocet-N 100 (Verified Allergy, Intermediate, HIVES, VOMITING, 06/23/16) Erythromycin (Verified Allergy, Intermediate, HIVES, VOMITING, 06/23/16) Ultracet (Verified Allergy, Intermediate, HIVES, 06/23/16) Norflex (Verified Adverse Reaction, Intermediate, UNABLE TO SLEEP AFTER ADMINISTRATION, 06/23/16) Reported Meds & Prescriptions Reported Meds & Active Scripts Active No Active Prescriptions or Reported Medications Review of Systems Except as stated in HPI: all other systems reviewed are Neg Physical Exam Narrative GENERAL: Well-appearing 35-year-old woman, no acute distress. SKIN: Warm and dry. CARDIOVASCULAR: Regular rate and rhythm. No murmur appreciated. RESPIRATORY: No accessory muscle use. Clear to auscultation. Breath sounds equal bilaterally. GASTROINTESTINAL: Abdomen soft, non-tender, nondistended. Hepatic and splenic margins not palpable. MUSCULOSKELETAL: No obvious deformities. Normal appearance the right upper extremity. No swelling. Normal pulses. Good capillary refill. No change in color. Normal pulses in the radius, brachial, and upper arm. No bruits. NEUROLOGICAL: Awake and alert. No obvious cranial nerve deficits. Motor grossly within normal limits. Normal speech. PSYCHIATRIC: Appropriate mood and affect; insight and judgment normal. Data Data Last Documented VS Vital Signs Date Time Temp Pulse Resp B/P Pulse Ox O2 Delivery O2 Flow Rate FiO2 06/23/16 00:26 98.1 114 20 149/88 98 Orders Chest, Single Ap (06/23/16 ) [facility] Medical Decision Making Medical Screen Exam Complete: Yes Emergency Medical Condition: Yes Interpretation(s) Chest x-ray: Negative Differential Diagnosis Right arm pain, arterial injury, other Narrative Course Medical decision making 35-year-old woman presents emergent arm for right arm pain after catheter. Vasculature appears preserved. I will see any evidence of vascular injury. She looks otherwise well. Chest x-ray is reassuring. Spoke with cardiology on- call, Dr. Jama, agreeable with outpatient follow-up. Diagnosis Primary Impression: Right arm pain Additional Instructions: Follow-up with your deli department manager in the next 2-4 days. Return to the emergency department for any new or worsening symptoms. Med/Other Pt SpecificInfo: No Change to Meds Scripts No Active Prescriptions or Reported Meds Disposition: 01 DISCHARGE HOME Condition: Stable Anibal Garsia MD Jun 23, 2016 02:24
[2016-06-23 02:32] VITALS: BP 138/82
== END 2016-06-23 02:41 | disposition home or self-care (01) ==
LOC: NEPE 00:24
DX: M79.601 Pain in right arm (principal); Z72.0 Tobacco use
CPT/HCPCS: 71010; 99283

== ENCOUNTER 2016-07-07 02:53 | Emergency (ER) | payer SELFPAY ==
[~2016-07-07] VITALS: Ht 172.7 cm; Wt 92.0 kg
[2016-07-07 02:59] VITALS: BP_SYST 136; BP_SYST 36; BP_DIAS 90; PULSE 72; RESP 18; TEMP 99.3; O2SAT 96
[2016-07-07] MEDS ORDERED: SODIUM CHLOR 0.9% 1000 ML INJ 1,000 ML IV SCH (03:17)
--- NOTE | 2016-07-07 03:20 | PD ---
HPI Chief Complaint: Flank/Kidney Pain Time Seen by Provider: 03:11 Travel History International Travel<30 days: No Contact w/Intl Traveler<30days: No Traveled to known affect area: No History of Present Illness HPI The patient is a 35-year-old female who presents emergency department for right flank pain. The patient states she was awakened at 1 AM with flank pain on the right side. The patient's pain starts in the right mid low back, radiates to the right flank and into the right lower quadrant. She does complain of mild nausea but denies any vomiting. The patient denies any dysuria , frequency, urgency, vaginal bleeding, or vaginal discharge. The patient does have a history of nephrolithiasis. Previous abdominal surgeries include tubal ligation and section. The patient denies any fever, chills, or sweats. The patient was recently in the hospital earlier in June for chest pain, had a positive stress test and subsequent cardiac catheterization which revealed minimal coronary artery disease. Patient denies any radiation of the pain to lower extremities and denies any weakness, numbness, or tingling of the lower extremities. PFSH Past Medical History Asthma: No Blood Disorders: No Cardiovascular Problems: Yes (CARDIAC CATH) High Cholesterol: No COPD: No Diminished Hearing: No Endocrine: No Genitourinary: No Immune Disorder: No Implanted Vascular Access Dvce: Yes Kidney Stones: Yes Musculoskeletal: Yes (OPEN BOOK PELVIC FRACTURE) Neurologic: No Psychiatric: No Reproductive: No ?: Not LMP: 07/04/16 : 1 Para: 1 Miscarriage: 0 : 0 Tubal Ligation: Yes Past Surgical History Body Medical Devices: IVC filter Section: Yes Genitourinary Surgery: Yes (LITHOTRIPSY X 2, RENAL STENT) Hysterectomy: Yes (TUBAL) Other Surgery: Yes (SINUS SURGERY, MULTIPLE SKIN GRAFTS) Social History Alcohol Use: No Tobacco Use: Yes () Substance Use: 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 CLEAN FOR 4 MONTHS) Allergies-Medications (Allergen,Severity, Reaction): Coded Allergies: Iodine (Verified Allergy, Severe, THROAT SWELLS, HIVES, 07/07/16) Seafood (Verified Allergy, Severe, THROAT SWELLS, HIVES, 07/07/16) Aspirin (Verified Allergy, Intermediate, HIVES, VOMITING, 07/07/16) Darvocet-N 100 (Verified Allergy, Intermediate, HIVES, VOMITING, 07/07/16) Erythromycin (Verified Allergy, Intermediate, HIVES, VOMITING, 07/07/16) Ultracet (Verified Allergy, Intermediate, HIVES, 07/07/16) Norflex (Verified Adverse Reaction, Intermediate, UNABLE TO SLEEP AFTER ADMINISTRATION, 07/07/16) Reported Meds & Prescriptions Reported Meds & Active Scripts Active No Active Prescriptions or Reported Medications Review of Systems Except as stated in HPI: all other systems reviewed are Neg General / Constitutional: No: Fever, Chills Cardiovascular: No: Chest Pain or Discomfort Respiratory: No: Shortness of Breath Gastrointestinal: Positive: Nausea, Abdominal Pain, No: Vomiting, Diarrhea Genitourinary: Positive: Flank Pain, No: Urgency, Frequency, Dysuria, Discharge, Vaginal Bleeding Musculoskeletal: No: Weakness Neurologic: No: Paresthesia, Sensory Disturbance Physical Exam Narrative GENERAL: Awake, alert, pleasant 35-year-old female who appears her stated age is in no acute respiratory distress. SKIN: Warm and dry. HEAD: Atraumatic. Normocephalic. EYES: Pupils equal and round. No scleral icterus. No injection or drainage. ENT: No nasal bleeding or discharge. Mucous membranes pink and moist. NECK: Trachea midline. No JVD. CARDIOVASCULAR: Regular rate and rhythm. No murmur appreciated. RESPIRATORY: No accessory muscle use. Clear to auscultation. Breath sounds equal bilaterally. GASTROINTESTINAL: Abdomen soft, minimal right flank tenderness and left lower quadrant tenderness. No rebound tenderness. Back: No CVA tenderness. MUSCULOSKELETAL: No obvious deformities. No clubbing. No cyanosis. No edema. NEUROLOGICAL: Awake and alert. No obvious cranial nerve deficits. Motor grossly within normal limits. Normal speech. PSYCHIATRIC: Appropriate mood and affect; insight and judgment normal. Data Data Last Documented VS Vital Signs Date Time Temp Pulse Resp B/P Pulse Ox O2 Delivery O2 Flow Rate FiO2 07/07/16 02:59 99.3 72 18 136/90 96 Orders Complete Blood Count With Diff (07/07/16 03:17) Comprehensive Metabolic Panel (07/07/16 03:17) Lipase (07/07/16 03:17) Urinalysis - C+S If Indicated (07/07/16 03:17) Ct Abd/Pel W/O Iv Contrast (07/07/16 03:17) Iv Access Insert/Monitor (07/07/16 03:17) Ecg Monitoring (07/07/16 03:17) Oximetry (07/07/16 03:17) Morphine Inj (Morphine Inj) (07/07/16 03:30) Ondansetron Inj (Zofran Inj) (07/07/16 03:30) Sodium Chlor 0.9% 1000 Ml Inj (Ns 1000 M (07/07/16 03:17) Sodium Chloride 0.9% Flush (Ns Flush) (07/07/16 03:30) Ed Urine Pregnancytest Poc (07/07/16 03:17) Labs Laboratory Tests Test 07/07/16 03:25 White Blood Count 5.7 TH/MM3 Red Blood Count 4.04 MIL/MM3 Hemoglobin 12.4 GM/DL Hematocrit 36.6 % Mean Corpuscular Volume 90.7 FL Mean Corpuscular Hemoglobin 30.8 PG Mean Corpuscular Hemoglobin 33.9 % Concent Red Cell Distribution Width 14.0 % Platelet Count 252 TH/MM3 Mean Platelet Volume 8.6 FL Neutrophils (%) (Auto) 73.3 % Lymphocytes (%) (Auto) 20.1 % Monocytes (%) (Auto) 5.6 % Eosinophils (%) (Auto) 0.4 % Basophils (%) (Auto) 0.6 % Neutrophils # (Auto) 4.2 TH/MM3 Lymphocytes # (Auto) 1.1 TH/MM3 Monocytes # (Auto) 0.3 TH/MM3 Eosinophils # (Auto) 0.0 TH/MM3 Basophils # (Auto) 0.0 TH/MM3 CBC Comment DIFF FINAL Differential Comment Urine Color YELLOW Urine Turbidity HAZY Urine pH 5.5 Urine Specific [place] 1.033 Urine Protein 30 mg/dL Urine Glucose (UA) NEG mg/dL Urine Ketones 10 mg/dL Urine Occult Blood NEG Urine Nitrite NEG Urine Bilirubin NEG Urine Urobilinogen 2.0 MG/DL Urine Leukocyte Esterase NEG Urine RBC 2 /hpf Urine WBC 3 /hpf Urine Squamous Epithelial 14 /hpf Cells Urine Calcium Oxalate Crystals MOD /hpf Urine Mucus MANY /lpf Microscopic Urinalysis Comment CULT NOT INDICATED Sodium Level 144 MEQ/L Potassium Level 3.8 MEQ/L Chloride Level 110 MEQ/L Carbon Dioxide Level 26.4 MEQ/L Anion Gap 8 MEQ/L Blood Urea Nitrogen 18 MG/DL Creatinine 0.85 MG/DL Estimat Glomerular Filtration 76 ML/MIN Rate Random Glucose 101 MG/DL Calcium Level 9.2 MG/DL Total Bilirubin 0.4 MG/DL Aspartate Amino Transf 32 U/L (AST/SGOT) Alanine Aminotransferase 20 U/L (ALT/SGPT) Alkaline Phosphatase 65 U/L Total Protein 7.9 GM/DL Albumin 3.8 GM/DL Lipase 155 U/L MDM Medical Decision Making Medical Screen Exam Complete: Yes Emergency Medical Condition: Yes Medical Record Reviewed: Yes Interpretation(s) Last Impressions Abdomen/Pelvis CT 07/07/167 Signed Impressions: Service Date/Time: Thursday, July 07, 2016 03:37 - CONCLUSION: No acute disease. Kit Kwan MD Laboratory Tests Test 07/07/16 03:25 White Blood Count 5.7 TH/MM3 Red Blood Count 4.04 MIL/MM3 Hemoglobin 12.4 GM/DL Hematocrit 36.6 % Mean Corpuscular Volume 90.7 FL Mean Corpuscular Hemoglobin 30.8 PG Mean Corpuscular Hemoglobin 33.9 % Concent Red Cell Distribution Width 14.0 % Platelet Count 252 TH/MM3 Mean Platelet Volume 8.6 FL Neutrophils (%) (Auto) 73.3 % Lymphocytes (%) (Auto) 20.1 % Monocytes (%) (Auto) 5.6 % Eosinophils (%) (Auto) 0.4 % Basophils (%) (Auto) 0.6 % Neutrophils # (Auto) 4.2 TH/MM3 Lymphocytes # (Auto) 1.1 TH/MM3 Monocytes # (Auto) 0.3 TH/MM3 Eosinophils # (Auto) 0.0 TH/MM3 Basophils # (Auto) 0.0 TH/MM3 CBC Comment DIFF FINAL Differential Comment Urine Color YELLOW Urine Turbidity HAZY Urine pH 5.5 Urine Specific [place] 1.033 Urine Protein 30 mg/dL Urine Glucose (UA) NEG mg/dL Urine Ketones 10 mg/dL Urine Occult Blood NEG Urine Nitrite NEG Urine Bilirubin NEG Urine Urobilinogen 2.0 MG/DL Urine Leukocyte Esterase NEG Urine RBC 2 /hpf Urine WBC 3 /hpf Urine Squamous Epithelial 14 /hpf Cells Urine Calcium Oxalate Crystals MOD /hpf Urine Mucus MANY /lpf Microscopic Urinalysis Comment CULT NOT INDICATED Sodium Level 144 MEQ/L Potassium Level 3.8 MEQ/L Chloride Level 110 MEQ/L Carbon Dioxide Level 26.4 MEQ/L Anion Gap 8 MEQ/L Blood Urea Nitrogen 18 MG/DL Creatinine 0.85 MG/DL Estimat Glomerular Filtration 76 ML/MIN Rate Random Glucose 101 MG/DL Calcium Level 9.2 MG/DL Total Bilirubin 0.4 MG/DL Aspartate Amino Transf 32 U/L (AST/SGOT) Alanine Aminotransferase 20 U/L (ALT/SGPT) Alkaline Phosphatase 65 U/L Total Protein 7.9 GM/DL Albumin 3.8 GM/DL Lipase 155 U/L Differential Diagnosis Differential diagnosis includes retroperitoneal hematoma status post cardiac catheterization, nephrolithiasis, pyelonephritis, ovarian torsion, atypical appendicitis, PID, cervicitis. Narrative Course IV was established, labs are drawn and sent, and the patient was placed on cardiac telemetry monitoring and continuous pulse ox imaging monitoring. The patient was steam power plant operator morphine, Zofran, and IV fluids. Noncontrast CT of the abdomen and pelvis was ordered to evaluate for possible nephrolithiasis. Bedside UA test was negative. The UA is unremarkable. CT the abdomen and pelvis is negative. UA reveals no evidence of pyelonephritis. Lipase and LFTs are unremarkable. Patient appears comfortable, I do not believe this is ovarian torsion. The patient is stable for outpatient follow- up with her primary physician. Diagnosis Primary Impression: Right flank pain Patient Instructions: General Instructions Additional Instructions: Follow-up with her primary physician. Return if symptoms worsen or progress. Diet as tolerated. Med/Other Pt SpecificInfo: Prescription(s) given Scripts Hydrocodone-Acetaminophen ([place])5-325 mg Tab1 Tab PO Q6H PRN (PAIN) #12 TAB Ref 0 Prov:Shahram Mendoza MD 07/07/16 Disposition: DISCHARGE HOME Condition: Stable Shahrma Mendoza MD Jul 07, 2016 03:20
[2016-07-07] MEDS ORDERED: SODIUM CHLORIDE 0.9% FLUSH 5 ML FLUSH IVF PRN (03:30)
[2016-07-07] MEDS ORDERED: ONDANSETRON HCL 4 MG/2 ML VIAL IVP ONE (03:30)
[2016-07-07] MEDS ORDERED: MORPHINE SULFATE 4 MG/ML INJ IV PUSH ONE (03:30)
[2016-07-07 03:54] LABS: AUTOMATED NEUTROPHIL # 4.2 TH/MM3 (1.8-7.7); BASOPHIL % 0.6 % (0.0-2.0); EOSINOPHIL % 0.4 % (0.0-4.0); HEMATOCRIT 36.6 % (35.0-46.0); HEMO FLAGS DIFF FINAL; LYMPH % 20.1 % (9.0-44.0); LYMPHOCYTE # 1.1 TH/MM3 (1.0-4.8); MEAN CELL VOLUME 90.7 FL (80.0-100.0); MEAN CORPUSCULAR HEMOGLOBIN 30.8 PG (27.0-34.0); MEAN CORPUSCULAR HGB CONC 33.9 % (32.0-36.0); MONO % 5.6 % (0.0-8.0); NEUT % 73.3 % (16.0-70.0); PLATELET COUNT 252 TH/MM3 (150-450); RED BLOOD COUNT 4.04 MIL/MM3 (4.00-5.30); WHITE BLOOD COUNT 5.7 TH/MM3 (4.0-11.0)
[2016-07-07 03:59] LABS: BLOOD, URINE NEG (NEG); CALCIUM OXALATE CRYSTALS,URINE MOD /hpf; COMMENT (UR) CULT NOT INDICATED; CULTURE IF INDICATED CULT NOT INDICATED; GLUCOSE,URINE NEG (NEG); KETONE, URINE 10 mg/dL (NEG); MUCUS URINE MANY /lpf (OCC); NITRITE,URINE NEG (NEG); PH, URINE 5.5 (5.0-8.5); SQUAMOUS EPITHELIAL CELL URINE 14 /hpf (0-5); URINE COLOR YELLOW (YELLW/STRAW)
--- NOTE | 2016-07-07 04:00 | RADRPT ---
EXAM DATE/TIME: 07/07/2016 03:37 [facility] COMPARISON: CT ABDOMEN & PELVIS W/O CONTRAST, June 19, 2014, 17:49. INDICATIONS : Right flank pain. ORAL CONTRAST: No oral contrast ingested. RADIATION DOSE: 14.87 CTDIvol (mGy) MEDICAL HISTORY : Renal calculi. SURGICAL HISTORY : Tubal ligation. section.IVC Filter placement. ENCOUNTER: Initial ACUITY: 1 day PAIN SCALE: 8/10 LOCATION: Right flank TECHNIQUE: Volumetric scanning of the abdomen and pelvis was performed. Using automated exposure control and ad justment of the mA and/or kV according to patient size, radiation dose was kept as low as reasonably achievable to obtain optimal diagnostic quality images. FINDINGS: Liver, spleen, pancreas, adrenal glands, kidneys, gallbladder are unremarkable. IVC filter in place. There are no calculi or hydronephrosis. No evidence of bowel obstruction or adenopathy. Right lumbar hernia again noted containing fat and a focal portion of descending colon on axial image 54, stable. Multiple remote pelvic fracture is are again seen involving the bilateral iliac bones, superior and i nferior pubic rami. Lung bases are clear. CONCLUSION: No acute disease. Kit Kwan MD on July 07, 2016 at 3:57 Board Certified Radiologist. This report was verified electronically.
[2016-07-07 04:04] LABS: ALT (GPT) 20 U/L (10-53); ANION GAP 8 MEQ/L (5-15); AST (GOT) 32 U/L (15-37); BICARBONATE 26.4 MEQ/L (21.0-32.0); BLOOD UREA NITROGEN 18 MG/DL (7-18); CHLORIDE 110 MEQ/L (98-107); GLOMERULAR FILTRATION RATE 76 ML/MIN (>89); POTASSIUM 3.8 MEQ/L (3.5-5.1); SODIUM (NA) 144 MEQ/L (136-145)
[2016-07-07 04:07] LABS: ALKALINE PHOSPHATASE 65 U/L (45-117); TOTAL BILIRUBIN ADULT 0.4 MG/DL (0.2-1.0)
[2016-07-07] MEDS ORDERED: NORC5TAB PO (04:27)
== END 2016-07-07 06:24 | disposition home or self-care (01) ==
LOC: NEPE 02:53
DX: R10.31 Right lower quadrant pain (principal); M54.5 Low back pain; R11.0 Nausea; Z72.0 Tobacco use; Z87.442 Personal history of urinary calculi; Z86.79 Personal history of other diseases of the circulatory system; Z87.39 Personal history of other diseases of the musculoskeletal system and connective tissue
CPT/HCPCS: 74176; 80053; 81001; 83690; 84703; 85025; 96374; 96375; 99284; J2270; J2405; J7030

== ENCOUNTER 2016-07-17 08:02 | Emergency (ER) | payer SELFPAY ==
[~2016-07-17] VITALS: Ht 172.7 cm; Wt 100.0 kg
[~2016-07-17 08:02] MED LIST changes: -CIPR500T4 PO; -CLIN150 PO; +NORC5TAB PO; -PERC5TAB12 PO
[2016-07-17 08:04] VITALS: BP 185/112; PULSE 81; RESP 16; TEMP 97.6; O2SAT 100
[2016-07-18] MEDS ORDERED: MACR100C2 PO (06:14)
[2016-07-18] MEDS ORDERED: DICY10 PO (06:14)
[2016-07-18] MEDS ORDERED: ZOFR4TAB3 SL (06:14)
== END 2016-07-17 09:30 | disposition left against medical advice (07) ==
LOC: NED 08:02
DX: M54.9 Dorsalgia, unspecified (principal)
CPT/HCPCS: 99281

== ENCOUNTER 2016-07-18 01:16 | Emergency (ER) | payer SELFPAY ==
[2016-07-18 01:20] VITALS: BP 143/68; PULSE 87; RESP 16; TEMP 98.7; O2SAT 97
[2016-07-18 02:52] LABS: BACTERIA, URINE RARE /hpf; BLOOD, URINE MOD (NEG); COMMENT (UR) CULT NOT INDICATED; CULTURE IF INDICATED CULT NOT INDICATED; GLUCOSE,URINE NEG (NEG); KETONE, URINE NEG (NEG); MUCUS URINE FEW /lpf (OCC); NITRITE,URINE NEG (NEG); SQUAMOUS EPITHELIAL CELL URINE 8 /hpf (0-5); TRANSITIONAL EPI CELLS, URINE <1 /hpf; URINE COLOR YELLOW (YELLW/STRAW)
[2016-07-18] MEDS ORDERED: SODIUM CHLOR 0.9% 1000 ML INJ 1,000 ML IV ONE (03:00)
[2016-07-18] MEDS ORDERED: KETOROLAC TROMETHAMINE 30 MG/ML (IVP) VIAL IV PUSH ONE (03:00)
[2016-07-18] MEDS ORDERED: ONDANSETRON HCL 4 MG/2 ML VIAL IV ONE (03:00)
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
[2016-07-18 04:21] LABS: AUTOMATED NEUTROPHIL # 4.3 TH/MM3 (1.8-7.7); BASOPHIL # 0.1 TH/MM3 (0-0.2); BASOPHIL % 0.8 % (0.0-2.0); EOSINOPHIL # 0.1 TH/MM3 (0-0.4); EOSINOPHIL % 1.5 % (0.0-4.0); HEMATOCRIT 34.8 % (35.0-46.0); HEMO FLAGS DIFF FINAL; LYMPH % 34.2 % (9.0-44.0); LYMPHOCYTE # 2.5 TH/MM3 (1.0-4.8); MEAN CELL VOLUME 90.3 FL (80.0-100.0); MEAN CORPUSCULAR HEMOGLOBIN 30.5 PG (27.0-34.0); MEAN CORPUSCULAR HGB CONC 33.8 % (32.0-36.0); MONO % 6.4 % (0.0-8.0); NEUT % 57.1 % (16.0-70.0); PLATELET COUNT 245 TH/MM3 (150-450); RED BLOOD COUNT 3.86 MIL/MM3 (4.00-5.30); RED CELL DISTRIBUTION WIDTH 13.7 % (11.6-17.2); WHITE BLOOD COUNT 7.4 TH/MM3 (4.0-11.0)
[2016-07-18 04:49] LABS: ALT (GPT) 15 U/L (10-53); ANION GAP 6 MEQ/L (5-15); AST (GOT) 13 U/L (15-37); BICARBONATE 27.6 MEQ/L (21.0-32.0); BLOOD UREA NITROGEN 19 MG/DL (7-18); CHLORIDE 108 MEQ/L (98-107); GLOMERULAR FILTRATION RATE 87 ML/MIN (>89); POTASSIUM 3.9 MEQ/L (3.5-5.1); SODIUM (NA) 142 MEQ/L (136-145)
[2016-07-18 04:51] LABS: ALKALINE PHOSPHATASE 63 U/L (45-117); TOTAL BILIRUBIN ADULT 0.3 MG/DL (0.2-1.0)
--- NOTE | 2016-07-18 05:56 | RADRPT ---
EXAM DATE/TIME: 07/18/2016 04:43 [facility] COMPARISON: CT ABDOMEN & PELVIS W/O CONTRAST, July 07, 2016, 3:37. INDICATIONS : Hematuria , evaluate for renal stone. ORAL CONTRAST: No oral contrast ingested. RADIATION DOSE: 13.59 CTDIvol (mGy) MEDICAL HISTORY : Cardiovascular disease. SURGICAL HISTORY : Tubal ligation. Hysterectomy.lithotripsey twice ENCOUNTER: Initial ACUITY: 1 day PAIN SCALE: 5/10 LOCATION: abdomen TECHNIQUE: Volumetric scanning of the abdomen and pelvis was performed. Using automated exposure control and ad justment of the mA and/or kV according to patient size, radiation dose was kept as low as reasonably achievable to obtain optimal diagnostic quality images. FINDINGS: LOWER LUNGS: The visualized lower lungs are clear. LIVER: Homogeneous density without lesion. There is no dilation of the biliary tree. No calcified gallston es. SPLEEN: Normal size without lesion. PANCREAS: Within normal limits. KIDNEYS: Normal in size and shape. There is no mass, stone, or hydronephrosis. ADRENAL GLANDS: Within normal limits. VASCULAR: There is no aortic aneurysm. Patient does have an IVC filter in the infrarenal IVC. BOWEL/MESENTERY: The stomach, small bowel, and colon demonstrate no acute abnormality. There is no free intraperitone al air or fluid. ABDOMINAL WALL: Hernia defect in the posterolateral aspect of the transverse abdominis musculature on the right with colon extending into the deep fatty tissues of the right buttocks. RETROPERITONEUM: There is no lymphadenopathy. BLADDER: No wall thickening or mass. REPRODUCTIVE: Within normal limits. Small 1.9 cm left ovarian cyst INGUINAL: There is no lymphadenopathy or hernia. MUSCULOSKELETAL: Old healed fracture deformities of the iliac crests, inferior and superior pubic rami bilaterally. CONCLUSION: 1. Old healed fracture deformities of the iliac crest, superior and inferior pubic rami bilaterally. 2. Hernia defect in the posterolateral aspect of the transversus abdominis musculature on the right. There is some colon herniating through the defect into the deep fatty tissues of the right buttocks. No obstruction. 3. Otherwise negative. No renal or ureteral calculi to explain current clinical symptoms Freddy Browning MD on July 18, 2016 at 5:48 Board Certified Radiologist. This report was verified electronically.
[2016-07-18] MEDS ORDERED: MACR100C2 PO (06:14)
[2016-07-18] MEDS ORDERED: DICY10 PO (06:14)
[2016-07-18] MEDS ORDERED: ZOFR4TAB3 SL (06:14)
== END 2016-07-18 07:46 | disposition home or self-care (01) ==
LOC: NEPC 01:16
DX: K46.9 Unspecified abdominal hernia without obstruction or gangrene (principal); R31.9 Hematuria, unspecified; Z72.0 Tobacco use
CPT/HCPCS: 74176; 80053; 81001; 83690; 84703; 85025; 86140; 96361; 96374; 96375; 99284; J1885; J2405; J7030

== ENCOUNTER 2016-07-27 02:05 | Inpatient (IN) | payer SELFPAY ==
[2016-07-27] VITALS (10 sets, daily range): BP systolic 119–142; BP diastolic 65–93; PULSE 63–79; RESP 16–20; TEMP 97.5–99.2; O2SAT 95–100
[~2016-07-27] VITALS: Ht 172.7 cm; Wt 93.0 kg
[~2016-07-27 02:05] MED LIST changes: +DICY10 PO; +MACR100C2 PO; +ZOFR4TAB3 SL
[2016-07-27] MEDS ORDERED: SODIUM CHLORIDE 0.9% FLUSH 5 ML FLUSH IVF PRN (02:45)
[2016-07-27 02:58] LABS: AUTOMATED NEUTROPHIL # 6.2 TH/MM3 (1.8-7.7); BASOPHIL # 0.1 TH/MM3 (0-0.2); BASOPHIL % 0.8 % (0.0-2.0); EOSINOPHIL # 0.1 TH/MM3 (0-0.4); EOSINOPHIL % 1.5 % (0.0-4.0); HEMATOCRIT 35.3 % (35.0-46.0); HEMO FLAGS DIFF FINAL; LYMPH % 20.1 % (9.0-44.0); LYMPHOCYTE # 1.8 TH/MM3 (1.0-4.8); MEAN CELL VOLUME 91.8 FL (80.0-100.0); MEAN CORPUSCULAR HEMOGLOBIN 30.1 PG (27.0-34.0); MEAN CORPUSCULAR HGB CONC 32.8 % (32.0-36.0); MONO % 7.8 % (0.0-8.0); NEUT % 69.8 % (16.0-70.0); PLATELET COUNT 228 TH/MM3 (150-450); RED BLOOD COUNT 3.85 MIL/MM3 (4.00-5.30); RED CELL DISTRIBUTION WIDTH 14.1 % (11.6-17.2); WHITE BLOOD COUNT 8.9 TH/MM3 (4.0-11.0)
[2016-07-27 03:07] LABS: APTT (PATIENT) 24.7 SEC (24.3-30.1); INTERNATIONAL NORMALIZED RATIO 0.9 RATIO; PROTHROMBIN TIME - PATIENT 10.1 SEC (9.8-11.6)
[2016-07-27 03:14] LABS: ALKALINE PHOSPHATASE 63 U/L (45-117); CREATINE KINASE 777 U/L (26-192); TOTAL BILIRUBIN ADULT 0.3 MG/DL (0.2-1.0)
[2016-07-27 03:17] LABS: ALT (GPT) 15 U/L (10-53); ANION GAP 8 MEQ/L (5-15); AST (GOT) 33 U/L (15-37); BICARBONATE 28.2 MEQ/L (21.0-32.0); BLOOD UREA NITROGEN 7 MG/DL (7-18); CHLORIDE 106 MEQ/L (98-107); GLOMERULAR FILTRATION RATE 87 ML/MIN (>89); POTASSIUM 3.9 MEQ/L (3.5-5.1); SODIUM (NA) 142 MEQ/L (136-145)
--- NOTE | 2016-07-27 03:19 | RADRPT ---
EXAM DATE/TIME: 07/27/2016 02:46 [facility] COMPARISON: CHEST SINGLE AP, June 23, 2016, 1:59. INDICATIONS : Chest pain. MEDICAL HISTORY : None. SURGICAL HISTORY : None. ENCOUNTER: Initial ACUITY: 1 day PAIN SCORE: 8/10 LOCATION: chest FINDINGS: A single view of the chest demonstrates the lungs to be symmetrically aerated without evidence of mas s, infiltrate or effusion. The cardiomediastinal contours are unremarkable. Osseous structures are intact. CONCLUSION: No acute disease. Eriberto Jama MD on July 27, 2016 at 3:17 Board Certified Radiologist. This report was verified electronically.
[2016-07-27] MEDS ORDERED: KETOROLAC TROMETHAMINE 30 MG/ML (IVP) VIAL IV PUSH ONE (03:30)
[2016-07-27] MEDS ORDERED: SODIUM CHLOR 0.9% 1000 ML INJ 1,000 ML IV ONE (03:30)
--- NOTE | 2016-07-27 04:47 | RADRPT ---
EXAM DATE/TIME: 07/27/2016 04:04 [facility] COMPARISON: No previous studies available for comparison. INDICATIONS : Bilateral leg swelling. MEDICAL HISTORY : Kidney stones. SURGICAL HISTORY : Tubal ligation.Hysterectomy. section.Cardiac catheterization. Renal stent. Lithotripsy. Pelv ic fracture repair. Skin grafts. ENCOUNTER: Initial ACUITY: 1 day PAIN SCORE: 0/10 LOCATION: Bilateral legs. TECHNIQUE: Venous ultrasound of the left and right leg was performed from the inguinal ligament to the proximal calf. Real-time, color Doppler and spectral tracing, compression and augmentation techniques were us ed. FINDINGS: RIGHT LEG: There is normal compressibility of the deep venous system from the inguinal region to the proximal ca lf. No echogenic clot is seen in the lumen of the common femoral, femoral, popliteal, and posterior tibial veins. There is a normal response of the venous system to proximal and distal augmentation an d respiration. LEFT LEG: There is normal compressibility of the deep venous system from the inguinal region to the proximal ca lf. No echogenic clot is seen in the lumen of the common femoral, femoral, popliteal, and posterior tibial veins. There is a normal response of the venous system to proximal and distal augmentation an d respiration. CONCLUSION: Normal examination. Eriberto Jama MD on July 27, 2016 at 4:44 Board Certified Radiologist. This report was verified electronically.
--- NOTE | 2016-07-27 05:41 | PD ---
HPI Chief Complaint: Chest Pain Time Seen by Provider: 03:16 Travel History International Travel<30 days: No Contact w/Intl Traveler<30days: No Traveled to known affect area: No History of Present Illness HPI Patient is a 35-year-old female who presents to emergency room with complaints of chest pain. Patient has been having increased chest pain for the past 2 months, reports the symptoms are intermittent in nature. Patient reports that she is having an increased squeezing sensation to her left chest which radiates to her left arm, reports the symptoms lasted for about one to 2 days and resolves on its own. Patient reports that she has had extensive workup and has had a cardiac cath which was negative. Patient was given 3SL nitro's by EMS, and reports no relief of symptoms. patient reports that she has been admitted to multiple hospitals and Percocet no acute figure out why she keeps on having chest pain. She denies any trauma to her chest. Patient denies any cough or congestion, denies fevers or chills. Patient also complaining of increased swelling to her legs. Denies history of DVT or PE. Patient denies recent drug abuse. PFSH Past Medical History Asthma: No Blood Disorders: No Cardiovascular Problems: Yes (RADIAL CARDIAC CATH) High Cholesterol: No COPD: No Diminished Hearing: No Endocrine: No Genitourinary: No Immune Disorder: No Implanted Vascular Access Dvce: Yes Kidney Stones: Yes Musculoskeletal: Yes (OPEN BOOK PELVIC FRACTURE) Neurologic: No Psychiatric: No Reproductive: No ?: Not : 1 Para: 1 Miscarriage: 0 : 0 Tubal Ligation: Yes Past Surgical History Body Medical Devices: IVC filter Section: Yes Genitourinary Surgery: Yes (LITHOTRIPSY X 2, RENAL STENT) Hysterectomy: Yes (TUBAL) Other Surgery: Yes (SINUS SURGERY, MULTIPLE SKIN GRAFTS) Social History Alcohol Use: No Tobacco Use: Yes (05/16PPD) Substance Use: Yes (STATES CLEAN FOR 6 MONTHS) Allergies-Medications (Allergen,Severity, Reaction): Coded Allergies: Iodine (Verified Allergy, Severe, THROAT SWELLS, HIVES, 07/27/16) Seafood (Verified Allergy, Severe, THROAT SWELLS, HIVES, 07/27/16) Aspirin (Verified Allergy, Intermediate, HIVES, VOMITING, 07/27/16) Darvocet-N 100 (Verified Allergy, Intermediate, HIVES, VOMITING, 07/27/16) Erythromycin (Verified Allergy, Intermediate, HIVES, VOMITING, 07/27/16) Ultracet (Verified Allergy, Intermediate, HIVES, 07/27/16) Norflex (Verified Adverse Reaction, Intermediate, UNABLE TO SLEEP AFTER ADMINISTRATION, 07/27/16) Reported Meds & Prescriptions Reported Meds & Active Scripts Active No Active Prescriptions or Reported Medications Review of Systems General / Constitutional: No: Fever Eyes: No: Visual changes HENT: No: Headaches Cardiovascular: Positive: Chest Pain or Discomfort Respiratory: Positive: Shortness of Breath Gastrointestinal: No: Abdominal Pain Genitourinary: No: Dysuria Musculoskeletal: No: Pain Skin: No Rash Neurologic: No: Weakness Psychiatric: No: Depression Endocrine: No: Polydipsia Hematologic/Lymphatic: No: Easy Bruising Physical Exam Narrative GENERAL: No acute distress, nontoxic SKIN: Warm and dry. HEAD: Atraumatic. Normocephalic. EYES: Pupils equal and round. No scleral icterus. No injection or drainage. ENT: No nasal bleeding or discharge. Mucous membranes pink and moist. NECK: Trachea midline. No JVD. CARDIOVASCULAR: Regular rate and rhythm. No murmur appreciated. RESPIRATORY: No accessory muscle use. Clear to auscultation. Breath sounds equal bilaterally. GASTROINTESTINAL: Abdomen soft, non-tender, nondistended. Hepatic and splenic margins not palpable. MUSCULOSKELETAL: No obvious deformities. No clubbing. No cyanosis. No edema. NEUROLOGICAL: Awake and alert. No obvious cranial nerve deficits. Motor grossly within normal limits. Normal speech. PSYCHIATRIC: Appropriate mood and affect; insight and judgment normal. Data Data Last Documented VS Vital Signs Date Time Temp Pulse Resp B/P Pulse Ox O2 Delivery O2 Flow Rate FiO2 07/27/16 02:21 79 14 100 Room Air 07/27/16 02:13 98.1 142/93 Orders B-Type Natriuretic Peptide (07/27/16 02:31) Ckmb (Isoenzyme) Profile (07/27/16 02:31) Complete Blood Count With Diff (07/27/16 02:31) Comprehensive Metabolic Panel (07/27/16 02:31) D-Dimer (07/27/16 02:31) Prothrombin Time / Inr (Pt) (07/27/16 02:31) Act Partial Throm Time (Ptt) (07/27/16 02:31) Troponin I (07/27/16 02:31) Lipase (07/27/16 02:31) Chest, Single Ap (07/27/16 02:31) Ecg Monitoring (07/27/16 02:31) Iv Access Insert/Monitor (07/27/16 02:31) Oximetry (07/27/16 02:31) Sodium Chloride 0.9% Flush (Ns Flush) (07/27/16 02:45) Ed Urine Pregnancytest Poc (07/27/16 02:31) CKMB (07/27/16 02:45) CKMB% (07/27/16 02:45) Drug Screen, Random Urine (07/27/16 03:23) Us Leg Venous Doppler Bilat (07/27/16 ) Sodium Chlor 0.9% 1000 Ml Inj (Ns 1000 M (07/27/16 03:30) Ketorolac Inj (Toradol Inj) (07/27/16 03:30) Ventilation & Perfusion Scan (07/27/16 ) Labs Laboratory Tests Test 07/27/16 02:45 White Blood Count 8.9 TH/MM3 Red Blood Count 3.85 MIL/MM3 Hemoglobin 11.6 GM/DL Hematocrit 35.3 % Mean Corpuscular Volume 91.8 FL Mean Corpuscular Hemoglobin 30.1 PG Mean Corpuscular Hemoglobin 32.8 % Concent Red Cell Distribution Width 14.1 % Platelet Count 228 TH/MM3 Mean Platelet Volume 8.6 FL Neutrophils (%) (Auto) 69.8 % Lymphocytes (%) (Auto) 20.1 % Monocytes (%) (Auto) 7.8 % Eosinophils (%) (Auto) 1.5 % Basophils (%) (Auto) 0.8 % Neutrophils # (Auto) 6.2 TH/MM3 Lymphocytes # (Auto) 1.8 TH/MM3 Monocytes # (Auto) 0.7 TH/MM3 Eosinophils # (Auto) 0.1 TH/MM3 Basophils # (Auto) 0.1 TH/MM3 CBC Comment DIFF FINAL Differential Comment Prothrombin Time 10.1 SEC Prothromb Time International 0.9 RATIO Ratio Activated Partial 24.7 SEC Thromboplast Time D-Dimer Quantitative (PE/DVT) 0.86 MG/L FEU Sodium Level 142 MEQ/L Potassium Level 3.9 MEQ/L Chloride Level 106 MEQ/L Carbon Dioxide Level 28.2 MEQ/L Anion Gap 8 MEQ/L Blood Urea Nitrogen 7 MG/DL Creatinine 0.76 MG/DL Estimat Glomerular Filtration 87 ML/MIN Rate Random Glucose 74 MG/DL Calcium Level 8.4 MG/DL Total Bilirubin 0.3 MG/DL Aspartate Amino Transf 33 U/L (AST/SGOT) Alanine Aminotransferase 15 U/L (ALT/SGPT) Alkaline Phosphatase 63 U/L Total Creatine Kinase 777 U/L Creatine Kinase MB 11.0 NG/ML Creatine Kinase MB % 1.4 % Troponin I LESS THAN 0.02 NG/ML B-Type Natriuretic Peptide 24 PG/ML Total Protein 6.6 GM/DL Albumin 3.0 GM/DL Lipase 121 U/L MDM Medical Decision Making Medical Screen Exam Complete: Yes Emergency Medical Condition: Yes Interpretation(s) EKG at 0208: NSR at 81bpm, qt/qtc: 382/420, no acute st or t wave changes Vital Signs Date Time Temp Pulse Resp B/P Pulse Ox O2 Delivery O2 Flow Rate FiO2 07/27/16 02:21 79 14 100 Room Air 07/27/16 02:13 98.1 79 16 142/93 100 Differential Diagnosis ACS, arrhythmia, Electrolyte abnormality, PE, DVT Narrative Course Patient is a 35-year-old female who presents to emergency room with complaints of chest pain. Patient has been having increased chest pain for the past 2 months, reports the symptoms are intermittent in nature. Patient reports that she is having an increased squeezing sensation to her left chest which radiates to her left arm, reports the symptoms lasted for about one to 2 days and resolves on its own. Patient reports that she has had extensive workup and has had a cardiac cath which was negative. Patient here for evaluation of chest pain as patient is convinced that there is something wrong with her heart. Cardiac catheter from June 23, 2016 was reviewed. Patient does have minimal coronary disease. Given patient's continued symptoms, labs including cardiac enzymes ordered. X-ray chest ordered as well. cbc: wnl bmp: wnl Troponin less than 0.02 ckmb 11.0 ddimer 0.86- patient with iodine allergy, VQ scan ordered. Patient unable to obtain VQ scan until 7 AM this morning. This was relayed to Dr. Parnell, the accepting physician. Ultrasound of legs negative for DVT. pt does have hx of IVDA in the past, patient adamantly refuses drug abuse. Patient will be admitted to medicine service for chest pain onset as well as for follow-up with a VQ scan. Dr. Parnell accepts pt to service Physician Communication Physician Communication case reviewed with dr parnell who accepts pt to service Diagnosis Primary Impression: Chest pain in adult Additional Impressions: Positive D dimer Rhabdomyolysis Admitting Information Admitting Physician Requests: Observation Scripts No Active Prescriptions or Reported Meds Kim Shirley DO Jul 27, 2016 05:41
[2016-07-27 06:05] LABS: AMPHETAMINE, URINE NEG (NEG); BARBITURATES, URINE NEG (NEG); COCAINE, URINE NEG (NEG)
--- NOTE | 2016-07-27 06:51 | RADRPT ---
EXAM DATE/TIME: 07/27/2016 06:16 [facility] COMPARISON: No previous studies available for comparison. INDICATIONS : Left sided chest pain with shortness of breath for two months. DOSE: 8.7 mCi Tc99m MAA IV 0.73 mCi Tc99m DTPA aerosol MEDICAL HISTORY : Smoker. SURGICAL HISTORY : Tubal ligation. IVC filter. Renal stent. ENCOUNTER: Initial ACUITY: 2 months PAIN SCALE: 5/10 LOCATION: Left chest TECHNIQUE: Following five minutes of tidal breathing of DTPA aerosol, planar images of the lungs were performed in eight projections. The patient was then injected with MAA, and eight-view perfusion scan was perf ormed. FINDINGS: There is a segmental perfusion defect in the posterior aspect of the left lower lobe. Right lung perf usion is unremarkable. Ventilation is patchy in appearance suggesting air trapping. CONCLUSION: Segmental perfusion defect in the left lower lobe. Intermediate probability for pulmonary embolus. Eriberto Jama MD on July 27, 2016 at 6:48 Board Certified Radiologist. This report was verified electronically.
[2016-07-27] MEDS: ENOXAPARIN SODIUM 100 MG/ML SYRINGE SQ SCH ×2 (11:22→20:53)
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
[2016-07-27] MEDS ORDERED: MORPHINE SULFATE 4 MG/ML INJ IV PUSH ONE (13:30)
--- NOTE | 2016-07-27 15:27 | EKG ---
Date Performed: 07/27/2016 Time Performed: 02:08:27 PTAGE: 35 years EKG: Sinus rhythm POSSIBLE LEFT ATRIAL ENLARGEMENT BORDERLINE ECG PREVIOUS TRACING : 06/21/2016 08.46 Compared to prior tracing no significant change DOCTOR: Madelaine Smith Interpretating Date/Time 07/27/2016 15:25:14
--- NOTE | 2016-07-27 15:29 | EKG ---
Date Performed: 07/27/2016 Time Performed: 08:51:58 PTAGE: 35 years EKG: Sinus rhythm WITH OCCASIONAL SUPREVENTRICULAR PREMATURE COMPLEXES. BORDERLINE ECG PREVIOUS TRACING 07/27/2016 2 06.20.26 Compared to prior tracing no significant change DOCTOR: Madelaine Smith Interpretating Date/Time 07/27/2016 15:28:20
[2016-07-27 16:07] LABS: CREATINE KINASE 410 U/L (26-192)
[2016-07-27 16:19] LABS: CKMB 5.4 NG/ML (0.5-3.6)
[2016-07-27] MEDS: MORPHINE SULFATE 4 MG/ML INJ IV PUSH PRN ×2 (17:04→20:53)
--- NOTE | 2016-07-27 17:58 | EKG ---
Date Performed: 07/27/2016 Time Performed: 15:10:37 PTAGE: 35 years EKG: Sinus rhythm NORMAL ECG Prior electrocardiogram not available for comparison PREVIOUS TRACING : 07/27/2016 08.51 DOCTOR: John Bowman Interpretating Date/Time 07/27/2016 17:55:57
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
[2016-07-27 22:27] LABS: MAGNESIUM 2.1 MG/DL (1.5-2.5)
[2016-07-27 22:55] LABS: HEMOGLOBIN A1b 1.4 %; HEMOGLOBIN Ao 86.7 %; HEMOGLOBIN LA1C 1.9 %; HEMOGLOBIN P3 3.4 %
[2016-07-28 00:23] VITALS: BP 134/81; PULSE 63; RESP 20; TEMP 97.9; O2SAT 100
[2016-07-28] MEDS: MORPHINE SULFATE 4 MG/ML INJ IV PUSH PRN ×2 (01:02→05:40)
[2016-07-28 03:58] VITALS: BP 164/86; PULSE 72; RESP 20; TEMP 97.5; O2SAT 97
[2016-07-28 07:10] LABS: HDL CHOLESTEROL 79.6 MG/DL (40.0-60.0)
[2016-07-28 07:36] VITALS: BP 144/77; PULSE 61; RESP 18; TEMP 97.2; O2SAT 96
[2016-07-28 08:15] VITALS: PULSE 65
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
[2016-07-28] MEDS ORDERED: ACETAMINOPHEN/HYDROcodone 325 MG/5 MG TAB PO PRN (09:00)
[2016-07-28] MEDS ORDERED: RIVAROXABAN 15 MG TAB PO SCH (09:00)
[2016-07-28] MEDS ORDERED: RIVA1TAB PO (09:55)
[2016-07-28] MEDS ORDERED: RESP: ALBUTEROL 2.5 MG/IPRATROPIUM 0.5 MG NEB (SCH) NEB ONE (10:15)
[2016-07-28] MEDS ORDERED: NORC5TAB PO (10:41)
[2016-07-28 10:44] VITALS: O2SAT 98
[2016-07-28] MEDS ORDERED: MORPHINE SULFATE 4 MG/ML INJ IV PUSH PRN (10:45)
[2016-07-28 11:28] VITALS: BP 141/90; PULSE 75; RESP 20; TEMP 96.9; O2SAT 97
--- NOTE | 2016-07-28 13:53 | EKG ---
Date Performed: 07/28/2016 Time Performed: 09:41:12 PTAGE: 35 years EKG: Sinus rhythm NORMAL ECG No significant change from prior electrocardiogram. PREVIOUS TRACING : 07/27/2016 15.10 DOCTOR: John Bowman Interpretating Date/Time 07/28/2016 13:52:15
[2016-07-29] MEDS ORDERED: RIVA1TAB PO (09:23)
== END 2016-07-28 14:11 | disposition home or self-care (01) | DRG 176 ==
LOC: NEPC 02:05 → NEDA 05:35 → OBSVTOIN 08:35 → NEPHCDU 09:16
PROVIDERS: ADMIT Hospitalist; ATTEND Hospitalist
DX: I26.99 Other pulmonary embolism without acute cor pulmonale (principal); M62.82 Rhabdomyolysis; Z91.041 Radiographic dye allergy status; Z87.442 Personal history of urinary calculi; J45.909 Unspecified asthma, uncomplicated; Z80.0 Family history of malignant neoplasm of digestive organs; Z88.1 Allergy status to other antibiotic agents; Z88.8 Allergy status to other drugs, medicaments and biological substances; Z82.49 Family history of ischemic heart disease and other diseases of the circulatory system; Z87.891 Personal history of nicotine dependence
CPT/HCPCS: 71010; 78582; 80053; 80061; 80307; 82550; 82552; 83036; 83690; 83735; 83880; 84484; 84703; 85025; 85379; 85610; 85730; 93005; 93970; 94664; 96361; 96374; A9540; A9567; J1650; J1885; J2270; J7030

== ENCOUNTER 2016-07-28 23:47 | Emergency (ER) | payer SELFPAY ==
[~2016-07-28] VITALS: Ht 172.7 cm; Wt 93.0 kg
[~2016-07-28 23:47] MED LIST changes: -DICY10 PO; -MACR100C2 PO; +RIVA1TAB PO; -ZOFR4TAB3 SL
[2016-07-28 23:52] VITALS: BP 142/97; PULSE 83; RESP 16; TEMP 97.8; O2SAT 100
--- NOTE | 2016-07-29 01:06 | PD ---
HPI Chief Complaint: Respiratory Symptoms Time Seen by Provider: 01:06 Travel History International Travel<30 days: No Contact w/Intl Traveler<30days: No Traveled to known affect area: No History of Present Illness HPI 35-year-old female came to the emergency room for some chest pain. Patient was discharged earlier yesterday after being admitted for possible PE. She was discharged home on Xarelto prescription and coupon. Patient says that the 30 day free trial coupon did not work in any of the multiple pharmacies she checked with. Currently she is in chest pain and hence she has returned. Patient has had multiple visits in the ER in past. She is allergic to seafood and hence could not have a CT pulmonary angiogram during her last visit. He had a VQ scan done which showed intermediate probability of PE. She had ultrasound done of both her legs and that was negative for blood clot. Patient says that she has had CAT scan with IV contrast done in the past but with premedication. PFSH Past Medical History Narrative Medical List of her past medical, surgical, social and family history was reviewed from the nursing note. Asthma: No Blood Disorders: No Heart Rhythm Problems: No Cardiac Catheterization: Yes (jun 2016) Cardiovascular Problems: Yes High Cholesterol: No Congestive Heart Failure: No COPD: No Diabetes: No Diminished Hearing: No Endocrine: No Genitourinary: No Immune Disorder: No Implanted Vascular Access Dvce: Yes Kidney Stones: Yes Musculoskeletal: Yes (OPEN BOOK PELVIC FRACTURE) Neurologic: No Psychiatric: No Reproductive: No Respiratory: Yes (PE) : 1 Para: 1 Miscarriage: 0 : 0 Tubal Ligation: Yes Past Surgical History Body Medical Devices: IVC filter Section: Yes Coronary Artery Bypass Graft: No Genitourinary Surgery: Yes (LITHOTRIPSY X 2, RENAL STENT) Hysterectomy: Yes (TUBAL) Other Surgery: Yes (SINUS SURGERY, MULTIPLE SKIN GRAFTS) Social History Alcohol Use: No Tobacco Use: Yes (05/16PPD) Substance Use: Yes (STATES CLEAN FOR 6 MONTHS) Allergies-Medications (Allergen,Severity, Reaction): Coded Allergies: Iodine (Verified Allergy, Severe, THROAT SWELLS, HIVES, 07/29/16) Seafood (Verified Allergy, Severe, THROAT SWELLS, HIVES, 07/29/16) Aspirin (Verified Allergy, Intermediate, HIVES, VOMITING, 07/29/16) Darvocet-N 100 (Verified Allergy, Intermediate, HIVES, VOMITING, 07/29/16) Erythromycin (Verified Allergy, Intermediate, HIVES, VOMITING, 07/29/16) Ultracet (Verified Allergy, Intermediate, HIVES, 07/29/16) Norflex (Verified Adverse Reaction, Intermediate, UNABLE TO SLEEP AFTER ADMINISTRATION, 07/29/16) Comments List of her allergies reviewed from the nursing note. Reported Meds & Prescriptions Reported Meds & Active Scripts Active Xarelto Starter Pack 15 & 20 mg (Rivaroxaban) 1 Tab Tab 1 Tab PO DIRECTED [place] (Hydrocodone-Acetaminophen) 5-325 mg Tab 1 Tab PO Q6H PRN Narrative Medication List of her home medications reviewed from the nursing note. Review of Systems Except as stated in HPI: all other systems reviewed are Neg Physical Exam Narrative GENERAL: Awake, alert, no obvious distress SKIN: Warm and dry. HEAD: Atraumatic. Normocephalic. EYES: Pupils equal and round. No scleral icterus. No injection or drainage. ENT: No nasal bleeding or discharge. Mucous membranes pink and moist. NECK: Trachea midline. No JVD. CARDIOVASCULAR: Regular rate and rhythm. No murmur appreciated. RESPIRATORY: No accessory muscle use. Clear to auscultation. Breath sounds equal bilaterally. GASTROINTESTINAL: Abdomen soft, non-tender, nondistended. Hepatic and splenic margins not palpable. MUSCULOSKELETAL: No obvious deformities. No clubbing. No cyanosis. No edema. NEUROLOGICAL: Awake and alert. No obvious cranial nerve deficits. Motor grossly within normal limits. Normal speech. PSYCHIATRIC: Appropriate mood and affect; insight and judgment normal. Data Data Last Documented VS Vital Signs Date Time Temp Pulse Resp B/P Pulse Ox O2 Delivery O2 Flow Rate FiO2 07/29/16 01:51 Room Air 07/28/16 23:52 97.8 83 16 142/97 100 Orders Electrocardiogram (07/29/16 00:09) Chest, Single Ap (07/29/16 00:09) Ed Urine Pregnancytest Poc (07/29/16 00:09) Methylprednisolone So Succ Inj (Solumedr (07/29/16 02:00) Diphenhydramine Inj (Benadryl Inj) (07/29/16 02:00) Admit Order (Ed Use Only) (3/19/17 01:53) MDM Medical Decision Making Medical Screen Exam Complete: Yes Emergency Medical Condition: Yes Medical Record Reviewed: Yes Interpretation(s) Twelve-lead EKG was reviewed by me. Normal sinus rhythm, normal axis, nonspecific ST-T wave changes. Heart rate of 73 bpm. Differential Diagnosis PE, pleuritic chest pain. Narrative Course 2 AM EDT case management I have been told by the hospitalist after I admitted the patient to the hospitalist that she is trying to find out from the hospital pharmacy if they can dispense couple days of Xarelto. If that's the case patient could be discharged home. If not then the plan is to admit her and premedicate her for a pulmonary angiogram. 2:38 AM I was just told by the hospitalist that the ED case management from morning will call the outpatient pharmacy of the hospital to have them dispense some Xarelto pills till she can get her prescription filled. Meanwhile patient has mentioned the nurse that her chest is hurting. She had a prescription for [place] that she was given when she got discharge and she could not get that prescription filled either. I have ordered 1 hydrocodone for her. I have canceled the CT pulmonary angiogram and the premedication as well. Procedures EKG Prior to Arrival: No Diagnosis Primary Impression: Atypical chest pain Additional Impression: possible pulmonary embolism Scripts Rivaroxaban Starter Pack 15 & 20 mg (Xarelto Starter Pack 15 & 20 mg)1 Tab Tab1 Tab PO DIRECTED #35 PACK Ref 0 Prov:Alexandra Santillan MD 07/29/16 Jacque Morton MD Jul 29, 2016 01:06
--- NOTE | 2016-07-29 01:11 | RADRPT ---
EXAM DATE/TIME: 07/29/2016 00:52 [facility] COMPARISON: CHEST SINGLE AP, July 27, 2016, 2:46. INDICATIONS : Chest pain. MEDICAL HISTORY : None. SURGICAL HISTORY : None. ENCOUNTER: Initial ACUITY: 1 day PAIN SCORE: 5/10 LOCATION: Bilateral chest FINDINGS: A single view of the chest demonstrates the lungs to be symmetrically aerated without evidence of mas s, infiltrate or effusion. The cardiomediastinal contours are unremarkable. Osseous structures are intact. CONCLUSION: No acute disease. No significant change has occurred. Eriberto Jama MD on July 29, 2016 at 1:08 Board Certified Radiologist. This report was verified electronically.
[2016-07-29] MEDS ORDERED: diphenhydrAMINE HCL 50 MG/ML VIAL IV PUSH ONE (02:00)
[2016-07-29] MEDS ORDERED: methylPREDNISolone SOD SUCC 125 MG/2 ML VIAL IV PUSH ONE (02:00)
[2016-07-29] MEDS ORDERED: ACETAMINOPHEN/HYDROcodone 325 MG/5 MG TAB PO ONE (02:45)
[2016-07-29] MEDS ORDERED: RIVAROXABAN 15 MG TAB PO ONE (02:45)
[2016-07-29 02:58] VITALS: BP 155/75; PULSE 69; RESP 18; O2SAT 95
[2016-07-29 05:02] VITALS: BP 124/69; PULSE 55; RESP 18; O2SAT 95
[2016-07-29 07:45] VITALS: BP 123/74; PULSE 60; RESP 22; TEMP 98.3; O2SAT 96
[2016-07-29] MEDS ORDERED: RIVA1TAB PO (09:23)
--- NOTE | 2016-07-29 09:24 | PD ---
Physical Exam Narrative GENERAL: Well-nourished, well-developed patient. SKIN: Warm and dry. HEAD: Normocephalic and atraumatic. EYES: No injection or drainage. ENT: No nasal drainage noted. NECK: Supple, trachea midline. CARDIOVASCULAR: Regular rate and rhythm RESPIRATORY: no increased effort. No accessory muscle use. NEUROLOGICAL: Awake and alert. Motor and sensory grossly within normal limits. Normal speech. Data Data Last Documented VS Vital Signs Date Time Temp Pulse Resp B/P Pulse Ox O2 Delivery O2 Flow Rate FiO2 07/29/16 01:51 Room Air 07/28/16 23:52 97.8 83 16 142/97 100 Orders Electrocardiogram (07/29/16 00:09) Chest, Single Ap (07/29/16 00:09) Ed Urine Pregnancytest Poc (07/29/16 00:09) Methylprednisolone So Succ Inj (Solumedr (07/29/16 02:00) Diphenhydramine Inj (Benadryl Inj) (07/29/16 02:00) Admit Order (Ed Use Only) (07/29/16 01:53) MDM Supervised Visit with [facility]: No Interpretation(s) Last 24 hours Impressions Chest X-Ray 07/29/16 0009 Signed Impressions: Service Date/Time: Friday, July 29, 2016 00:52 - CONCLUSION: No acute disease. No significant change has occurred. Eriberto Jama MD Narrative Course Signed over to me that patient could go home after case management arranged Xarelto has outpatient. Case management states she can go tomorrow morning at 8 AM to our outpatient pharmacy with her car and get her prescription filled there. She was given Xarelto to cover for today prior to my arrival at 3 AM this morning. Patient denies new complaints and is happy with plan of care. Given return instructions Diagnosis Primary Impression: Atypical chest pain Additional Impression: possible pulmonary embolism Patient Instructions: General Instructions Additional Instruction: return as needed, follow with primary tommorrow and fill prescription as directed by case management, tylenol as needed Med/Other Pt SpecificInfo: Prescription(s) given Scripts Rivaroxaban Starter Pack 15 & 20 mg (Xarelto Starter Pack 15 & 20 mg)1 Tab Tab1 Tab PO DIRECTED #35 PACK Ref 0 Prov:Alexandra Santillan MD 07/29/16 Disposition: 01 DISCHARGE HOME Condition: Stable Alexandra Santillan MD Jul 29, 2016 09:24
--- NOTE | 2016-07-29 12:32 | EKG ---
Date Performed: 07/29/2016 Time Performed: 00:17:54 PTAGE: 35 years EKG: Sinus rhythm NORMAL ECG No significant change from prior electrocardiogram. PREVIOUS TRACING : 07/28/2016 09.41 DOCTOR: John Bowman Interpretating Date/Time 07/29/2016 12:30:56
== END 2016-07-29 09:36 | disposition home or self-care (01) ==
LOC: NEPC 23:47 → UNDOADMOB 07-29 01:55 → NEDA 07-29 01:55 → NEPC 07-29 09:36
DX: R07.89 Other chest pain (principal); Z79.01 Long term (current) use of anticoagulants
CPT/HCPCS: 71010; 84703; 93005

== ENCOUNTER 2016-08-12 08:31 | Emergency (ER) | payer SELFPAY ==
[~2016-08-12] VITALS: Ht 170.2 cm; Wt 95.0 kg
[2016-08-12 08:33] VITALS: BP 140/91; PULSE 110; RESP 17; TEMP 98.2; O2SAT 99
[2016-08-12 08:57] VITALS: BP_SYST 140; BP_SYST 143; BP_DIAS 85; BP_DIAS 91; O2SAT 98
[2016-08-12] MEDS ORDERED: SODIUM CHLORIDE 0.9% FLUSH 10 ML FLUSH IVF PRN (09:00)
[2016-08-12] MEDS ORDERED: SODIUM CHLOR 0.9% 1000 ML INJ 1,000 ML IV ONE (09:13)
[2016-08-12] MEDS ORDERED: PROCHLORPERAZINE INJ 10 MG/2 ML VIAL IVP ONE (09:15)
[2016-08-12] MEDS ORDERED: diphenhydrAMINE HCL 50 MG/ML VIAL IVP ONE (09:15)
[2016-08-12 09:16] LABS: AUTOMATED NEUTROPHIL # 18.4 TH/MM3 (1.8-7.7); BASOPHIL % 0.1 % (0.0-2.0); HEMATOCRIT 37.5 % (35.0-46.0); HEMO FLAGS DIFF FINAL; LYMPHOCYTE # 0.4 TH/MM3 (1.0-4.8); MEAN CELL VOLUME 90.3 FL (80.0-100.0); MEAN CORPUSCULAR HEMOGLOBIN 30.8 PG (27.0-34.0); MEAN CORPUSCULAR HGB CONC 34.1 % (32.0-36.0); MONO % 4.3 % (0.0-8.0); NEUT % 93.6 % (16.0-70.0); PLATELET COUNT 185 TH/MM3 (150-450); RED BLOOD COUNT 4.15 MIL/MM3 (4.00-5.30); RED CELL DISTRIBUTION WIDTH 14.5 % (11.6-17.2); WHITE BLOOD COUNT 19.7 TH/MM3 (4.0-11.0)
[2016-08-12 09:26] LABS: APTT (PATIENT) 29.2 SEC (24.3-30.1); INTERNATIONAL NORMALIZED RATIO 0.9 RATIO; PROTHROMBIN TIME - PATIENT 10.3 SEC (9.8-11.6)
[2016-08-12 09:36] LABS: ANION GAP 10 MEQ/L (5-15); AST (GOT) 11 U/L (15-37); BLOOD UREA NITROGEN 19 MG/DL (7-18); CHLORIDE 106 MEQ/L (98-107); GLOMERULAR FILTRATION RATE 42 ML/MIN (>89); MAGNESIUM 2.2 MG/DL (1.5-2.5); POTASSIUM 3.4 MEQ/L (3.5-5.1); SODIUM (NA) 140 MEQ/L (136-145)
--- NOTE | 2016-08-12 09:39 | RADRPT ---
EXAM DATE/TIME: 08/12/2016 08:58 [facility] COMPARISON: CHEST SINGLE AP, July 29, 2016, 0:52. INDICATIONS : Chest pain and vomitting for three days. MEDICAL HISTORY : None. SURGICAL HISTORY : None. ENCOUNTER: Initial ACUITY: 3 days PAIN SCORE: 9/10 LOCATION: Bilateral chest FINDINGS: A single view of the chest demonstrates the lungs to be symmetrically aerated without evidence of mas s, infiltrate or effusion. The cardiomediastinal contours are unremarkable. Osseous structures are intact. CONCLUSION: No acute disease. Mike Casey MD FACR on August 12, 2016 at 9:37 Board Certified Radiologist. This report was verified electronically.
[2016-08-12 09:40] LABS: ALKALINE PHOSPHATASE 94 U/L (45-117); ALT (GPT) 12 U/L (10-53); TOTAL BILIRUBIN ADULT 0.5 MG/DL (0.2-1.0)
[2016-08-12 09:41] LABS: CREATINE KINASE 76 U/L (26-192)
--- NOTE | 2016-08-12 09:46 | RADRPT ---
EXAM DATE/TIME: 08/12/2016 09:24 [facility] COMPARISON: No previous studies available for comparison. INDICATIONS : Cephalgia for three days. RADIATION DOSE: 56.35 CTDIvol (mGy) MEDICAL HISTORY : Cardiovascular disease. Pulmonary emboli two weeks ago. SURGICAL HISTORY : Hysterectomy. ENCOUNTER: Initial ACUITY: 3 days PAIN SCALE: 5/10 LOCATION: Cranial TECHNIQUE: Multiple contiguous axial images were obtained of the head. Using automated exposure control and adjustment of the mA and/or kV according to patient size, radiation dose was kept as low as reasonably achievable to obtain optimal diagnostic quality images. FINDINGS: I have no prior studies for a comparison. There is either a tiny punctate calcification or area of hemorrhage measuring less than 1 mm high in the right centrum semiovale. Left hemisphere is unremarkable. Posterior fossa appears normal. CONCLUSION: Either punctate calcification or tiny hemorrhage high on the right. I have no prior studies for a co mparison. Mike Casey MD FACR on August 12, 2016 at 9:39 Board Certified Radiologist. This report was verified electronically.
[2016-08-12 09:51] VITALS: BP 131/83
--- NOTE | 2016-08-12 10:13 | PD ---
HPI Chief Complaint: Chest Pain Time Seen by Provider: 09:08 Travel History International Travel<30 days: No Contact w/Intl Traveler<30days: No Traveled to known affect area: No History of Present Illness HPI 35 y/o female presents with note of chest pain and headache that has been constant since she left here. She states she got her Xarelto filled like she was supposed to when she left the emergency room here last. She states that she is working on getting in with Dr. Sneed but has not had success as an outpatient. She is concerned that the pain is not gone away. She states she cannot take any anti-inflammatory medications that she is allergic to all of them. She states that she has not used IV drugs for multiple months. She denies any trauma or other concurrent complaints. Quality is throbbing. Severity is moderate. She denies specific modifying factors. PFSH Past Medical History Hx Anticoagulant Therapy: Yes (xarelto) Asthma: No Blood Disorders: No Heart Rhythm Problems: No Cardiac Catheterization: Yes Cardiovascular Problems: Yes High Cholesterol: No Congestive Heart Failure: No COPD: No Diabetes: No Diminished Hearing: No Endocrine: No Genitourinary: No Immune Disorder: No Implanted Vascular Access Dvce: Yes Kidney Stones: Yes Musculoskeletal: Yes (OPEN BOOK PELVIC FRACTURE) Neurologic: No Psychiatric: No Reproductive: No Respiratory: Yes (PE) Tetanus Vaccination: > 5 Years Influenza Vaccination: No ?: Not : 1 Para: 1 Miscarriage: 0 : 0 Tubal Ligation: Yes Past Surgical History Body Medical Devices: IVC filter Section: Yes Coronary Artery Bypass Graft: No Genitourinary Surgery: Yes (LITHOTRIPSY X 2, RENAL STENT) Hysterectomy: Yes Other Surgery: Yes (SINUS SURGERY, MULTIPLE SKIN GRAFTS, IVC filter) Family History Family Myocardial Infarction: Yes Social History Alcohol Use: No Tobacco Use: Yes (D) Substance Use: No (HX OF) Allergies-Medications (Allergen,Severity, Reaction): Coded Allergies: Iodine (Verified Allergy, Severe, THROAT SWELLS, HIVES, 08/12/16) Seafood (Verified Allergy, Severe, THROAT SWELLS, HIVES, 08/12/16) Aspirin (Verified Allergy, Intermediate, HIVES, VOMITING, 08/12/16) Darvocet-N 100 (Verified Allergy, Intermediate, HIVES, VOMITING, 08/12/16) Erythromycin (Verified Allergy, Intermediate, HIVES, VOMITING, 08/12/16) Ultracet (Verified Allergy, Intermediate, HIVES, 08/12/16) Norflex (Verified Adverse Reaction, Intermediate, UNABLE TO SLEEP AFTER ADMINISTRATION, 08/12/16) Reported Meds & Prescriptions Reported Meds & Active Scripts Active Xarelto Starter Pack 15 & 20 mg (Rivaroxaban) 1 Tab Tab 1 Tab PO DIRECTED [place] (Hydrocodone-Acetaminophen) 5-325 mg Tab 1 Tab PO Q6H PRN Review of Systems Except as stated in HPI: all other systems reviewed are Neg Physical Exam Narrative GENERAL: Well-nourished, well-developed patient. SKIN: Warm and dry. HEAD: Normocephalic and atraumatic. EYES: No injection or drainage. ENT: No nasal drainage noted. NECK: Supple, trachea midline. CARDIOVASCULAR: Regular rate and rhythm RESPIRATORY: Breath sounds equal bilaterally. No accessory muscle use. GASTROINTESTINAL: Abdomen soft, non-tender, nondistended. EXTREMITIES: No edema. NEUROLOGICAL: Awake and alert to person, place, date. Motor and sensory grossly within normal limits. Normal speech. 5 out of 5 in all 4 extremities Data Data Last Documented VS Vital Signs Date Time Temp Pulse Resp B/P Pulse Ox O2 Delivery O2 Flow Rate FiO2 08/12/16 09:51 106 15 131/83 98 08/12/16 08:57 Room Air 08/12/16 08:33 98.2 Orders Electrocardiogram (08/12/16 08:52) Ckmb (Isoenzyme) Profile (08/12/16 08:52) Complete Blood Count With Diff (08/12/16 08:52) Comprehensive Metabolic Panel (08/12/16 08:52) Magnesium (Mg) (08/12/16 08:52) Prothrombin Time / Inr (Pt) (08/12/16 08:52) Act Partial Throm Time (Ptt) (08/12/16 08:52) Troponin I (08/12/16 08:52) Chest, Single Ap (08/12/16 08:52) Ecg Monitoring (08/12/16 08:52) Bilateral Bp Monitoring (08/12/16 08:52) Iv Access Insert/Monitor (08/12/16 08:52) Oximetry (08/12/16 08:52) Sodium Chloride 0.9% Flush (Ns Flush) (08/12/16 09:00) Ct Brain W/O Iv Contrast(Rout) (08/12/16 ) Prochlorperazine Inj (Compazine Inj) (08/12/16 09:15) Diphenhydramine Inj (Benadryl Inj) (08/12/16 09:15) Sodium Chlor 0.9% 1000 Ml Inj (Ns 1000 M (08/12/16 09:13) Urinalysis - C+S If Indicated (08/12/16 09:43) Drug Screen, Random Urine (08/12/16 09:43) Labs Laboratory Tests Test 08/12/16 09:00 White Blood Count 19.7 TH/MM3 Red Blood Count 4.15 MIL/MM3 Hemoglobin 12.8 GM/DL Hematocrit 37.5 % Mean Corpuscular Volume 90.3 FL Mean Corpuscular Hemoglobin 30.8 PG Mean Corpuscular Hemoglobin 34.1 % Concent Red Cell Distribution Width 14.5 % Platelet Count 185 TH/MM3 Mean Platelet Volume 9.1 FL Neutrophils (%) (Auto) 93.6 % Lymphocytes (%) (Auto) 2.0 % Monocytes (%) (Auto) 4.3 % Eosinophils (%) (Auto) 0.0 % Basophils (%) (Auto) 0.1 % Neutrophils # (Auto) 18.4 TH/MM3 Lymphocytes # (Auto) 0.4 TH/MM3 Monocytes # (Auto) 0.9 TH/MM3 Eosinophils # (Auto) 0.0 TH/MM3 Basophils # (Auto) 0.0 TH/MM3 CBC Comment DIFF FINAL Differential Comment Prothrombin Time 10.3 SEC Prothromb Time International 0.9 RATIO Ratio Activated Partial 29.2 SEC Thromboplast Time Sodium Level 140 MEQ/L Potassium Level 3.4 MEQ/L Chloride Level 106 MEQ/L Carbon Dioxide Level 24.0 MEQ/L Anion Gap 10 MEQ/L Blood Urea Nitrogen 19 MG/DL Creatinine 1.41 MG/DL Estimat Glomerular Filtration 42 ML/MIN Rate Random Glucose 107 MG/DL Calcium Level 8.8 MG/DL Magnesium Level 2.2 MG/DL Total Bilirubin 0.5 MG/DL Aspartate Amino Transf 11 U/L (AST/SGOT) Alanine Aminotransferase 12 U/L (ALT/SGPT) Alkaline Phosphatase 94 U/L Total Creatine Kinase 76 U/L Troponin I LESS THAN 0.02 NG/ML Total Protein 7.6 GM/DL Albumin 3.0 GM/DL MDM Medical Decision Making Medical Screen Exam Complete: Yes Emergency Medical Condition: Yes Medical Record Reviewed: Yes (past history confirmed) Interpretation(s) CBC & BMP Diagram 08/12/16 09:00 Last 24 hours Impressions Chest X-Ray 08/12/16 0852 Signed Impressions: Service Date/Time: Friday, August 12, 2016 08:58 - CONCLUSION: No acute disease. Mike Casey MD FACR EKG is sinus tachycardia at 105 without STEMI criteria Differential Diagnosis Musculoskeletal, gastritis, atypical cardiac, endocarditis, bleed, tension, migraine.... Narrative Course Will check blood work, chest x-ray, EKG, CT brain and dose with Benadryl and Compazine and reevaluate On reevaluation patient was seen with nurse informed that she had an elevated white count. I was concerned given I cannot find source of infection and her history that we'll need to add on workup for possible endocarditis. She once again denies IV drug abuse. I told her she will also need to stay in the hospital. Shortly after I left the room patient called nurse back in on her own and states she wants to leave AMA I went back in with nurse and lengthy discussion with patient and she is alert and oriented and understands that if she leaves it will be AGAINST MEDICAL ADVICE. She states she wants to go up to [place] to be closer to her mother for completion of her testing and doesn't want to stay any longer for me to help facilitate her care. All questions answered, the risks of leaving against medical advice without further evaluation treatment were discussed with the patient. These risks include cardiac dysfunction, cardiac dysrhythmia, possible heart attack, possible stroke or . The patient indicated understanding of these risks and appeared to have the capacity to make this decision. Patient updated about CT and still alert and oriented and cannot convince to stay with nurse at bedside Diagnosis Primary Impression: Chest pain in adult Additional Impressions: Leukocytosis Qualified Code: D72.829 - Leukocytosis, unspecified type Cephalalgia Qualified Code: R51 - Acute nonintractable headache, unspecified headache type Patient Instructions: General Instructions Departure Forms: Tests/Procedures Additional Instructions: return at anytime for completion of your workup Med/Other Pt SpecificInfo: No Change to Meds Disposition: 07 AGAINST MEDICAL ADVICE Condition: Stable Alexandra Santillan MD Aug 12, 2016 10:13
--- NOTE | 2016-08-13 11:24 | EKG ---
Date Performed: 08/12/2016 Time Performed: 08:53:28 PTAGE: 35 years EKG: SINUS TACHYCARDIA ABNORMAL RHYTHM ECG INTERPRETATION BASED ON A DEFAULT AGE OF 40 YEARS NO PREVIOUS TRACING DOCTOR: Clint Murillo Interpretating Date/Time 08/13/2016 11:22:49
== END 2016-08-12 09:51 | disposition left against medical advice (07) ==
LOC: NEPE 08:31
DX: R07.9 Chest pain, unspecified (principal); D72.829 Elevated white blood cell count, unspecified; R51 Headache; R00.0 Tachycardia, unspecified; R11.10 Vomiting, unspecified; Z86.711 Personal history of pulmonary embolism; Z87.442 Personal history of urinary calculi; F17.210 Nicotine dependence, cigarettes, uncomplicated
CPT/HCPCS: 70450; 71010; 80053; 82550; 83735; 84484; 85025; 85610; 85730; 93005; 96374; 96375; 99285; J0780; J1200; J7030

== ENCOUNTER 2016-12-17 18:12 | Emergency (ER) | payer SELFPAY ==
[~2016-12-17] VITALS: Ht 170.2 cm; Wt 112.7 kg
[2016-12-17 18:15] VITALS: BP 176/106; PULSE 96; RESP 14; TEMP 98.8; O2SAT 97
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
--- NOTE | 2016-12-17 19:08 | RADRPT ---
EXAM DATE/TIME: 12/17/2016 18:37 [facility] COMPARISON: No previous studies available for comparison. INDICATIONS : Right shoulder pain. MEDICAL HISTORY : None. SURGICAL HISTORY : None. ENCOUNTER: Initial ACUITY: 1 day PAIN SCORE: 4/10 LOCATION: Right Shoulder. FINDINGS: Multiple view examination of the right shoulder demonstrates no evidence of fracture or dislocation. The glenohumeral and acromioclavicular joints are maintained. There is normal range of motion betwe en internal and external rotation. Bony mineralization is normal. CONCLUSION: 1. No acute findings. Eriberto Jama MD on December 17, 2016 at 19:01 Board Certified Radiologist. This report was verified electronically.
[2016-12-17] MEDS ORDERED: TYLE325T PO (19:14)
[2016-12-17 19:28] VITALS: BP 166/88; PULSE 84; RESP 18; O2SAT 98
== END 2016-12-17 19:30 | disposition home or self-care (01) ==
LOC: PHEFT 18:12
DX: M25.511 Pain in right shoulder (principal)
CPT/HCPCS: 73030; 99283

== ENCOUNTER 2017-01-05 08:01 | Emergency (ER) | payer SELFPAY ==
[~2017-01-05] VITALS: Ht 170.2 cm; Wt 109.5 kg
[~2017-01-05 08:01] MED LIST changes: -NORC5TAB PO; -RIVA1TAB PO; +TYLE325T PO
[2017-01-05 08:13] VITALS: BP 138/87; PULSE 64; RESP 20; TEMP 98.9; O2SAT 100
[2017-01-05] MEDS ORDERED: ZOFR4TAB3 SL (08:46)
--- NOTE | 2017-01-05 08:46 | PD ---
HPI Chief Complaint: Headache Time Seen by Provider: 08:44 Travel History International Travel<30 days: No Contact w/Intl Traveler<30days: No Traveled to known affect area: No History of Present Illness HPI 36-year-old female presents to emergency Department with complaint of headache since this morning at 4 AM. Headache was gradual onset. Reports nausea without vomiting. Generalized headache. Describes it as some and is punching her in the head. Reports double vision. Denies lightheadedness, dizziness. Denies focal deficits or weakness. Denies change in mentation, confusion, disorientation. Has taken Tylenol for symptom management. 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 Has no other medical complaints. Multiple allergies verified as listed on chart. No other modifying factors or associated signs and symptoms. PFSH Past Medical History Hx Anticoagulant Therapy: No Asthma: No Blood Disorders: No Heart Rhythm Problems: No Cardiac Catheterization: Yes Cardiovascular Problems: No High Cholesterol: No Chemotherapy: No Congestive Heart Failure: No COPD: No Cerebrovascular Accident: No Diabetes: No Diminished Hearing: No Endocrine: No Genitourinary: No Immune Disorder: No Implanted Vascular Access Dvce: Yes Kidney Stones: Yes Musculoskeletal: Yes (OPEN BOOK PELVIC FRACTURE) Neurologic: No Psychiatric: No Reproductive: No Respiratory: No ?: Not LMP: tubal ligation : 1 Para: 1 Miscarriage: 0 : 0 Tubal Ligation: Yes Past Surgical History Body Medical Devices: IVC filter Section: Yes Coronary Artery Bypass Graft: No Genitourinary Surgery: Yes (LITHOTRIPSY X 2, RENAL STENT) Hysterectomy: No Other Surgery: Yes (Lithotripsy, sinus, multiple skin grafts, IVC filter) Family History Family Myocardial Infarction: Yes Social History Alcohol Use: No Tobacco Use: Yes (1/2 PPD) Substance Use: No Allergies-Medications (Allergen,Severity, Reaction): Coded Allergies: Fish Containing Products (Unverified Allergy, Severe, Throat swelling, hives, 12/25/16) aspirin (Unverified Allergy, Severe, Hives, vomiting, 12/25/16) diclofenac (Unverified Allergy, Severe, Hives, vomiting , 12/25/16) erythromycin base (Unverified Allergy, Severe, Hives, vomiting, 12/25/16) etodolac (Unverified Allergy, Severe, Hives, vomiting , 12/25/16) flurbiprofen (Unverified Allergy, Severe, Hives, vomiting , 12/25/16) ibuprofen (Unverified Allergy, Severe, Hives, vomiting , 12/25/16) indomethacin (Unverified Allergy, Severe, Hives, vomiting , 12/25/16) iodine (Unverified Allergy, Severe, Throat swelling, hives, 12/25/16) ketoprofen (Unverified Allergy, Severe, Hives, vomiting , 12/25/16) ketorolac (Unverified Allergy, Severe, Hives, vomiting , 12/25/16) naproxen (Unverified Allergy, Severe, Hives, vomiting , 12/25/16) oxaprozin (Unverified Allergy, Severe, Hives, vomiting , 12/25/16) potassium iodide (Unverified Allergy, Severe, Throat swelling, hives, 12/25) povidone-iodine (Unverified Allergy, Severe, Throat swelling, hives, ) propoxyphene (Unverified Allergy, Severe, Hives, vomiting, 12/25/16) sodium iodide (Unverified Allergy, Severe, Throat swelling, hives, 12/25/16 ) sodium iodide (Unverified Allergy, Severe, Throat swelling, hives, 12/25/16 ) tramadol (Unverified Allergy, Severe, Hives, 12/25/16) acetaminophen (Verified Allergy, Unknown, hives, 01/05/17) orphenadrine (Unverified Adverse Reaction, Severe, Insomnia , 12/25/16) Reported Meds & Prescriptions Reported Meds & Active Scripts Active Zofran Odt (Ondansetron Odt) 4 Mg Tab 4 Mg SL Q8HR PRN Review of Systems Except as stated in HPI: all other systems reviewed are Neg Physical Exam Narrative GENERAL: Well-nourished, well-developed female patient, in no acute distress SKIN: Warm and dry. HEAD: Atraumatic. Normocephalic. No Facial droop noted. Tongue midline. EYES: Pupils equal and round at 3 mm with brisk reaction. No scleral icterus. No injection or drainage. PERRLA. EOMI. nose to finger test normal. ENT: Mucosa pink and moist. Airway patent. NECK: Trachea midline. No lymphadenopathy. CARDIOVASCULAR: Regular rate. RESPIRATORY: No accessory muscle use. GASTROINTESTINAL: Obese. MUSCULOSKELETAL: No obvious deformities. No clubbing. No cyanosis. No edema. NEUROLOGICAL: Awake and alert. Oriented 3. No obvious cranial nerve deficits. Motor grossly within normal limits. Normal speech. No ataxia. No mid -line drift. Moves all extremities. 5/5 strength to all extremities. PSYCHIATRIC: Appropriate mood and affect; insight and judgment normal. Data Data Last Documented VS Vital Signs Date Time Temp Pulse Resp B/P (MAP) Pulse Ox O2 Delivery O2 Flow Rate FiO2 01/05/17 08:13 98.9 64 20 138/87 (104) 100 Room Air Orders Orders Acetaminophen (Tylenol) (01/05/17 09:00) MDM Medical Decision Making Medical Screen Exam Complete: Yes Emergency Medical Condition: Yes Medical Record Reviewed: Yes Differential Diagnosis Acute headache, migraine headache, tension headache Narrative Course 36-year-old female with cephalgia. Patient had CT scan August 12, 2016, which concluded either punctuate calcification time he hemorrhage high on the right; I have no prior studies for comparison. Patient has history of brain injury in 1993. Neuro exam is unremarkable. I discussed the patient with Dr. Garsia, my attending physician, and he agrees repeat CT scan of head is not warranted at this time. Patient has acetaminophen listed as an allergy and she states she is not allergic to Tylenol. She did take Tylenol this morning at 4 AM. Zofran and Tylenol administered in the ER. Instructed patient to follow up with primary care provider. Patient verbalizes understanding and agreement with treatment plan. Patient is medically cleared and stable for discharge. Discussed reasons to return to the emergency department. Patient agrees with treatment plan. The patients vital signs are stable and the patient is stable for outpatient follow-up and treatment. Patient discharged home, stable and in no acute distress. Diagnosis Primary Impression: Cephalalgia Qualified Codes: R51 - Headache Referrals: [facility] Primary Care Physician Patient Instructions: Acute Headache (ED), General Instructions Additional Instructions: Ibuprofen or Tylenol as directed and as needed to reduce headache Get plenty of rest: do not over sleep rest and relax in a dark, quiet room as needed Place an ice pack on the back of her neck to reduce head pain as needed Keep a headache diary of what triggers her headaches and what treatment is most effective Avoid identifiable triggers Avoid smoking, alcohol and caffeine consumption Reduce stress Follow-up with primary care provider within 1-2 days Follow-up with neurology Return immediately to the emergency department with worsening symptomS Med/Other Pt SpecificInfo: Prescription(s) given Scripts Ondansetron Odt (Zofran Odt) 4 Mg Tab 4 MG SL Q8HR Y for Nausea/Vomiting, #10 TAB 0 Refills Prov: Monique Horner 01/05/17 Disposition: 01 DISCHARGE HOME Condition: Stable Monique Horner Jan 05, 2017 08:46
[2017-01-05] MEDS ORDERED: ACETAMINOPHEN 325 MG TAB PO ONE (09:00)
== END 2017-01-05 09:06 | disposition home or self-care (01) ==
LOC: NEPK 08:01
DX: R51 Headache (principal); R11.0 Nausea; H53.2 Diplopia; F17.200 Nicotine dependence, unspecified, uncomplicated; Z86.79 Personal history of other diseases of the circulatory system; Z87.442 Personal history of urinary calculi; Z87.39 Personal history of other diseases of the musculoskeletal system and connective tissue
CPT/HCPCS: 99283

== ENCOUNTER 2017-01-22 21:22 | Emergency (ER) | payer SELFPAY ==
[~2017-01-22] VITALS: Ht 172.7 cm; Wt 110.0 kg
[~2017-01-22 21:22] MED LIST changes: -TYLE325T PO; +ZOFR4TAB3 SL
[2017-01-22 21:27] VITALS: BP 182/117; PULSE 84; RESP 16; TEMP 98.6; O2SAT 100
[2017-01-22] MEDS ORDERED: ONDANSETRON ODT 4 MG TAB PO ONE (22:15)
[2017-01-22] MEDS ORDERED: HYDROmorphone HCL PF 1 MG/ML VIAL IM ONE (22:15)
[2017-01-22 22:34] LABS: BACTERIA, URINE RARE /hpf; BLOOD, URINE NEG (NEG); COMMENT (UR) CULT NOT INDICATED; CULTURE IF INDICATED CULT NOT INDICATED; GLUCOSE,URINE NEG (NEG); KETONE, URINE NEG (NEG); NITRITE,URINE NEG (NEG); PH, URINE 5.5 (5.0-8.5); SQUAMOUS EPITHELIAL CELL URINE 5 /hpf (0-5); URINE COLOR YELLOW (YELLW/STRAW)
[2017-01-22] MEDS: SODIUM CHLORIDE 0.9% FLUSH 10 ML FLUSH IVF PRN (22:53)
--- NOTE | 2017-01-22 22:55 | PD ---
HPI Chief Complaint: Complaint Time Seen by Provider: 22:05 Travel History International Travel<30 days: No Contact w/Intl Traveler<30days: No Traveled to known affect area: No History of Present Illness HPI PATIENT STATES ONSET OF LEFT FLANK PAIN AND PAIN ON URINATION, PATIENT DECLINES FEVER/N/V/D/CP/SPIVEY/ AT THIS TIME. PFSH Past Medical History Hx Anticoagulant Therapy: No Asthma: No Blood Disorders: No Heart Rhythm Problems: No Cardiac Catheterization: Yes Cardiovascular Problems: No High Cholesterol: No Chemotherapy: No Congestive Heart Failure: No COPD: No Cerebrovascular Accident: No Diabetes: No Diminished Hearing: No Endocrine: No Genitourinary: No Immune Disorder: No Implanted Vascular Access Dvce: Yes Kidney Stones: Yes Musculoskeletal: Yes (OPEN BOOK PELVIC FRACTURE) Neurologic: No Psychiatric: No Reproductive: No Respiratory: Yes (PE) Tetanus Vaccination: < 5 Years Influenza Vaccination: Yes ?: Not LMP: LAST WEEK : 1 Para: 1 Miscarriage: 0 : 0 Tubal Ligation: Yes Past Surgical History Body Medical Devices: IVC filter Section: Yes Coronary Artery Bypass Graft: No Genitourinary Surgery: Yes (LITHOTRIPSY X 2, RENAL STENT) Hysterectomy: No Other Surgery: Yes (Lithotripsy, sinus, multiple skin grafts, IVC filter) Social History Alcohol Use: No Tobacco Use: Yes (1/2 PPD) Substance Use: No Allergies-Medications (Allergen,Severity, Reaction): Coded Allergies: Fish Containing Products (Unverified Allergy, Severe, Throat swelling, hives, 01/22/17) aspirin (Unverified Allergy, Severe, Hives, vomiting, 01/22/17) diclofenac (Unverified Allergy, Severe, Hives, vomiting , 01/22/17) erythromycin base (Unverified Allergy, Severe, Hives, vomiting, 01/22/17) etodolac (Unverified Allergy, Severe, Hives, vomiting , 01/22/17) flurbiprofen (Unverified Allergy, Severe, Hives, vomiting , 01/22/17) ibuprofen (Unverified Allergy, Severe, Hives, vomiting , 01/22/17) indomethacin (Unverified Allergy, Severe, Hives, vomiting , 01/22/17) iodine (Unverified Allergy, Severe, Throat swelling, hives, 01/22/17) ketoprofen (Unverified Allergy, Severe, Hives, vomiting , 01/22/17) ketorolac (Unverified Allergy, Severe, Hives, vomiting , 01/22/17) naproxen (Unverified Allergy, Severe, Hives, vomiting , 01/22/17) oxaprozin (Unverified Allergy, Severe, Hives, vomiting , 01/22/17) potassium iodide (Unverified Allergy, Severe, Throat swelling, hives, 01/22) povidone-iodine (Unverified Allergy, Severe, Throat swelling, hives, ) propoxyphene (Unverified Allergy, Severe, Hives, vomiting, 01/22/17) sodium iodide (Unverified Allergy, Severe, Throat swelling, hives, 01/22/17 ) sodium iodide (Unverified Allergy, Severe, Throat swelling, hives, 01/22/17 ) tramadol (Unverified Allergy, Severe, Hives, 01/22/17) acetaminophen (Verified Allergy, Unknown, hives, 01/22/17) orphenadrine (Unverified Adverse Reaction, Severe, Insomnia , 01/22/17) Reported Meds & Prescriptions Reported Meds & Active Scripts Active No Active Prescriptions or Reported Medications Physical Exam Narrative GENERAL: SKIN: Warm and dry. HEAD: Atraumatic. Normocephalic. EYES: Pupils equal and round. No scleral icterus. No injection or drainage. ENT: No nasal bleeding or discharge. Mucous membranes pink and moist. NECK: Trachea midline. No JVD. CARDIOVASCULAR: Regular rate and rhythm. RESPIRATORY: No accessory muscle use. Clear to auscultation. Breath sounds equal bilaterally. GASTROINTESTINAL: Abdomen soft, non-tender, nondistended. MUSCULOSKELETAL: Extremities without clubbing, cyanosis, or edema. No obvious deformities. NEUROLOGICAL: Awake and alert. No obvious cranial nerve deficits. Motor grossly within normal limits. Five out of 5 muscle strength in the arms and legs. Normal speech. PSYCHIATRIC: Appropriate mood and affect; insight and judgment normal. Data Data Last Documented VS Vital Signs Date Time Temp Pulse Resp B/P (MAP) Pulse Ox O2 Delivery O2 Flow Rate FiO2 01/22/17 21:27 98.6 84 16 182/117 (138) 100 Room Air Orders Orders Urinalysis - C+S If Indicated (01/22/17 22:05) Ed Urine Pregnancytest Poc (01/22/17 22:05) Ct Abd/Pel W/O Iv Contrast (01/22/17 22:05) Sodium Chloride 0.9% Flush (Ns Flush) (01/22/17 22:15) Ondansetron Odt (Zofran Odt) (01/22/17 22:15) Hydromorphone Pf Inj (Dilaudid Pf Inj) (01/22/17 22:15) Labs Laboratory Tests Test 01/22/17 22:20 Urine Color YELLOW Urine Turbidity HAZY Urine pH 5.5 Urine Specific [place] 1.019 Urine Protein NEG mg/dL Urine Glucose (UA) NEG mg/dL Urine Ketones NEG mg/dL Urine Occult Blood NEG Urine Nitrite NEG Urine Bilirubin NEG Urine Urobilinogen LESS THAN 2.0 MG/DL Urine Leukocyte Esterase NEG Urine RBC LESS THAN 1 /hpf Urine WBC LESS THAN 1 /hpf Urine Squamous Epithelial Cells 5 /hpf Urine Bacteria RARE /hpf Microscopic Urinalysis Comment CULT NOT INDICATED MDM Medical Decision Making Medical Screen Exam Complete: Yes Emergency Medical Condition: Yes Medical Record Reviewed: Yes Differential Diagnosis MUSCLE SPASM V PYELO V URETERAL STONE Narrative Course CT NEG AND UA NEG, ADVISED PATIENT THAT A MUSCLE RELAXER WILL BE PRESCRIBED BUT NO PAIN MEDICATION/NARCOTIC WILL BE PRESCRIBED Diagnosis Primary Impression: MUSCLE SPASM Patient Instructions: General Instructions, Muscle Spasm (ED) Scripts Cyclobenzaprine (Flexeril) 10 Mg Tab 10 MG PO TID for Muscle Spasm, #30 TAB 0 Refills Prov: Claude Ponce MD 01/23/17 Disposition: 01 DISCHARGE HOME Condition: Stable Claude Ponce MD Jan 22, 2017 22:55
--- NOTE | 2017-01-22 23:34 | RADRPT ---
EXAM DATE/TIME: 01/22/2017 23:05 [facility] COMPARISON: No previous studies available for comparison. INDICATIONS : Bilateral back pain and hematuria. ORAL CONTRAST: No oral contrast ingested. RADIATION DOSE: 22.22 CTDIvol (mGy) MEDICAL HISTORY : Renal calculi. Pulmonary embolism. Pelvic trauma. SURGICAL HISTORY : Tubal ligation. section.Pelvic repair. IVC filter. Renal stent. ENCOUNTER: Initial ACUITY: 1 day PAIN SCALE: 8/10 LOCATION: Bilateral flank TECHNIQUE: Volumetric scanning of the abdomen and pelvis was performed. Using automated exposure control and ad justment of the mA and/or kV according to patient size, radiation dose was kept as low as reasonably achievable to obtain optimal diagnostic quality images. DICOM format image data is available electro nically for review and comparison. FINDINGS: Lung bases are clear. No acute findings in the liver, spleen, adrenals, kidneys or pancreas. No renal calculi or obstructive uropathy. No gallstones. Inferior vena cava filter present. Again seen is a hernia defect in the posterior transversus abdominous musculature on the right with s ome: Herniated through the defect. This is stable from July 2016. Multiple remote pelvic fractures again noted. No new fracture. CONCLUSION: 1. No acute findings. Specifically no renal calculi or obstructive uropathy. 2. Stable appearance of remote pelvic fractures and herniation of colon through the lower right later al abdominal wall without obstruction. Eriberto Jama MD on January 22, 2017 at 23:26 Board Certified Radiologist. This report was verified electronically.
[2017-01-23] MEDS ORDERED: CYCL1TAB29 PO (00:12)
[2017-01-23 00:23] VITALS: BP 128/80
[2017-01-24] MEDS ORDERED: MACR100C2 PO (10:37)
== END 2017-01-23 00:27 | disposition home or self-care (01) ==
LOC: NEPD 21:22
DX: M62.838 Other muscle spasm (principal); R30.0 Dysuria; F17.200 Nicotine dependence, unspecified, uncomplicated; Z88.6 Allergy status to analgesic agent; Z88.8 Allergy status to other drugs, medicaments and biological substances
CPT/HCPCS: 74176; 81001; 84703; 96372; 99284; J1170

== ENCOUNTER 2017-01-24 08:56 | Emergency (ER) | payer SELFPAY ==
[~2017-01-24] VITALS: Ht 170.2 cm; Wt 110.0 kg
[~2017-01-24 08:56] MED LIST changes: +CYCL1TAB29 PO; -ZOFR4TAB3 SL
[2017-01-24 08:57] VITALS: BP 135/92; PULSE 74; RESP 20; TEMP 97.3; O2SAT 100
--- NOTE | 2017-01-24 09:07 | PD ---
HPI Chief Complaint: Abdominal Pain Time Seen by Provider: 09:07 Travel History International Travel<30 days: No Contact w/Intl Traveler<30days: No Traveled to known affect area: No History of Present Illness HPI 36-year-old female came to the emergency room with history of lower abdominal pain mostly right sided. Patient denies any vaginal discharge. She was seen in the emergency room 2 days ago for the exact same thing when blood test, urinalysis and CAT scan was done. They were all within normal limits. Vital signs are stable. Patient says her pain is still there. Patient has been in the emergency room multiple times for various pain related complains. She does not have a primary care she claims. No history of nausea vomiting, diarrhea or any fever. [facility] Past Medical History Narrative Medical List of her past medical, surgical, social and family history as reviewed from the nursing note. Hx Anticoagulant Therapy: No Asthma: No Blood Disorders: No Heart Rhythm Problems: No Cardiac Catheterization: Yes Cardiovascular Problems: No High Cholesterol: No Chemotherapy: No Congestive Heart Failure: No COPD: No Cerebrovascular Accident: No Diabetes: No Diminished Hearing: No Endocrine: No Genitourinary: No Immune Disorder: No Implanted Vascular Access Dvce: Yes Kidney Stones: Yes Musculoskeletal: Yes (OPEN BOOK PELVIC FRACTURE) Neurologic: No Psychiatric: No Reproductive: No Respiratory: Yes (PE) Tetanus Vaccination: < 5 Years ?: Not LMP: 01/14/17 : 1 Para: 1 Miscarriage: 0 : 0 Tubal Ligation: Yes Past Surgical History Body Medical Devices: IVC filter Section: Yes Coronary Artery Bypass Graft: No Genitourinary Surgery: Yes (LITHOTRIPSY X 2, RENAL STENT) Hysterectomy: No Other Surgery: Yes (Lithotripsy, sinus, multiple skin grafts, IVC filter) Family History Family Myocardial Infarction: Yes Social History Alcohol Use: No Tobacco Use: Yes (2 PPD) Substance Use: No Allergies-Medications (Allergen,Severity, Reaction): Coded Allergies: Fish Containing Products (Unverified Allergy, Severe, Throat swelling, hives, 01/27/17) aspirin (Unverified Allergy, Severe, Hives, vomiting, 01/27/17) diclofenac (Unverified Allergy, Severe, Hives, vomiting , 01/27/17) erythromycin base (Unverified Allergy, Severe, Hives, vomiting, 01/27/17) etodolac (Unverified Allergy, Severe, Hives, vomiting , 01/27/17) flurbiprofen (Unverified Allergy, Severe, Hives, vomiting , 01/27/17) ibuprofen (Unverified Allergy, Severe, Hives, vomiting , 01/27/17) indomethacin (Unverified Allergy, Severe, Hives, vomiting , 01/27/17) iodine (Unverified Allergy, Severe, Throat swelling, hives, 01/27/17) ketoprofen (Unverified Allergy, Severe, Hives, vomiting , 01/27/17) ketorolac (Unverified Allergy, Severe, Hives, vomiting , 01/27/17) naproxen (Unverified Allergy, Severe, Hives, vomiting , 01/27/17) oxaprozin (Unverified Allergy, Severe, Hives, vomiting , 01/27/17) potassium iodide (Unverified Allergy, Severe, Throat swelling, hives, 01/27) povidone-iodine (Unverified Allergy, Severe, Throat swelling, hives, ) propoxyphene (Unverified Allergy, Severe, Hives, vomiting, 01/27/17) sodium iodide (Unverified Allergy, Severe, Throat swelling, hives, 01/27/17 ) sodium iodide (Unverified Allergy, Severe, Throat swelling, hives, 01/27/17 ) tramadol (Unverified Allergy, Severe, Hives, 01/27/17) acetaminophen (Verified Allergy, Unknown, hives, 01/27/17) orphenadrine (Unverified Adverse Reaction, Severe, Insomnia , 01/27/17) Comments List of her allergies reviewed from the nursing note. Reported Meds & Prescriptions Reported Meds & Active Scripts Active Macrobid (Nitrofurantoin Monoh/Nitrofur Macro) 100 Mg Cap 100 Mg PO BID Flexeril (Cyclobenzaprine HCl) 10 Mg Tab 10 Mg PO TID Narrative Medication List of her home medications reviewed from the nursing note. Review of Systems Except as stated in HPI: all other systems reviewed are Neg Physical Exam Narrative GENERAL: Awake, alert, moderate distress SKIN: Focused skin assessment warm/dry. HEAD: Atraumatic. Normocephalic. EYES: Pupils equal and round. No scleral icterus. No injection or drainage. ENT: No nasal bleeding or discharge. Mucous membranes pink and moist. NECK: Trachea midline. No JVD. CARDIOVASCULAR: Regular rate and rhythm. No murmur appreciated. RESPIRATORY: No accessory muscle use. Clear to auscultation. Breath sounds equal bilaterally. GASTROINTESTINAL: Abdomen soft, non-tender, nondistended. Hepatic and splenic margins not palpable. MUSCULOSKELETAL: No obvious deformities. No clubbing. No cyanosis. No edema. NEUROLOGICAL: Awake and alert. No obvious cranial nerve deficits. Motor grossly within normal limits. Normal speech. PSYCHIATRIC: Appropriate mood and affect; insight and judgment normal. Data Data Last Documented VS Vital Signs Date Time Temp Pulse Resp B/P (MAP) Pulse Ox O2 Delivery O2 Flow Rate FiO2 01/24/17 10:48 01/24/17 08:57 97.3 74 20 100 Room Air Orders Orders Urinalysis - C+S If Indicated (01/24/17 09:14) Ed Urine Pregnancytest Poc (01/24/17 09:14) Urine Culture (01/24/17 09:30) Nitrofurantoin Monohyd Macrocr (Macrobid (01/24/17 10:15) Labs Laboratory Tests Test 01/24/17 09:30 Urine Color YELLOW Urine Turbidity HAZY Urine pH 6.5 Urine Specific [place] 1.021 Urine Protein TRACE mg/dL Urine Glucose (UA) NEG mg/dL Urine Ketones NEG mg/dL Urine Occult Blood NEG Urine Nitrite NEG Urine Bilirubin NEG Urine Urobilinogen LESS THAN 2.0 MG/DL Urine Leukocyte Esterase SMALL Urine RBC LESS THAN 1 /hpf Urine WBC 3 /hpf Urine Squamous Epithelial Cells 36 /hpf Urine Bacteria MOD /hpf Urine Hyaline Casts 1 /lpf Urine Mucus FEW /lpf Microscopic Urinalysis Comment CULTURE INDICATED MDM Medical Decision Making Medical Screen Exam Complete: Yes Emergency Medical Condition: Yes Medical Record Reviewed: Yes Differential Diagnosis Chronic pain, UTI Narrative Course 10:36 AM urine analysis shows a possibility of UTI. Given her symptoms go ahead and treat her. Patient was given a dose of Macrobid here by me today. She'll get a prescription to go home with. Patient is allergic to almost every pain medication except for the opiates. Due to this I have not given her anything for pain here at this point. Procedures EKG Prior to Arrival: No Diagnosis Primary Impression: UTI (urinary tract infection) Qualified Codes: N39.0 - Urinary tract infection, site not specified Referrals: Primary Care Physician Additional Instructions: Drink lots of fluid. Take medication as per the prescription direction. Try to follow up with a primary care. Med/Other Pt SpecificInfo: Prescription(s) given Scripts Nitrofurantoin Monohydrate Macrocrystals (Macrobid) 100 Mg Cap 100 MG PO BID for Infection, #10 CAP 0 Refills Prov: Jacque Morton MD 01/24/17 Disposition: 01 DISCHARGE HOME Condition: Stable Jacque Morton MD Jan 24, 2017 09:07
[2017-01-24 09:53] LABS: BACTERIA, URINE MOD /hpf; BLOOD, URINE NEG (NEG); COMMENT (UR) CULTURE INDICATED; CULTURE IF INDICATED CULTURE INDICATED; GLUCOSE,URINE NEG (NEG); HYALINE CAST, URINE 1 /lpf (RARE); KETONE, URINE NEG (NEG); MUCUS URINE FEW /lpf (OCC); NITRITE,URINE NEG (NEG); PH, URINE 6.5 (5.0-8.5); SQUAMOUS EPITHELIAL CELL URINE 36 /hpf (0-5); URINE COLOR YELLOW (YELLW/STRAW)
[2017-01-24] MEDS ORDERED: NITROFURANTOIN MONOHYD MACROCR 100 MG CAP PO ONE (10:15)
[2017-01-24] MEDS ORDERED: MACR100C2 PO (10:37)
== END 2017-01-24 10:49 | disposition home or self-care (01) ==
LOC: NEPD 08:56
DX: N39.0 Urinary tract infection, site not specified (principal); F17.200 Nicotine dependence, unspecified, uncomplicated; Z86.711 Personal history of pulmonary embolism; Z87.442 Personal history of urinary calculi; Z88.6 Allergy status to analgesic agent; Z88.8 Allergy status to other drugs, medicaments and biological substances; Z88.5 Allergy status to narcotic agent
CPT/HCPCS: 81001; 84703; 87086; 99283

== ENCOUNTER 2017-01-27 11:04 | Emergency (ER) | payer SELFPAY ==
[~2017-01-27] VITALS: Ht 170.2 cm; Wt 109.0 kg
[~2017-01-27 11:04] MED LIST changes: +MACR100C2 PO
[2017-01-27 11:09] VITALS: BP 143/85; PULSE 78; RESP 16; TEMP 98.3; O2SAT 99
--- NOTE | 2017-01-27 11:22 | PD ---
HPI . pelvic/vaginal pain radiating to back Chief Complaint: Flank/Kidney Pain Time Seen by Provider: 11:22 Travel History International Travel<30 days: No Contact w/Intl Traveler<30days: No Traveled to known affect area: No History of Present Illness HPI 36 yr old female here with c/o of pelvic/vaginal pain that is radiating to her back. Patient says this has been going on for 1 week and this is her third time here in the emergency department. She did have a CT scan of her abdomen and pelvis that demonstrated no acute findings, specifically no renal calculi or obstructive uropathy. There was some stable appearance of remote pelvic fractures and herniation of colon to the lower right lateral abdominal wall without obstruction. She specifically complains of pain in her vagina that is radiating into her hips. She tells me that she has not had any sexual intercourse. There was no alleviating or exacerbating factors. She denies any vaginal discharge or urinary changes. She tells me the pain is just constant and rated as a 9/10. She is in between primary care providers and uninsured. She doesn't know what else to do at this point. PFSH Past Medical History Hx Anticoagulant Therapy: No Asthma: No Blood Disorders: No Heart Rhythm Problems: No Cardiac Catheterization: Yes Cardiovascular Problems: No High Cholesterol: No Chemotherapy: No Congestive Heart Failure: No COPD: No Cerebrovascular Accident: No Diabetes: No Diminished Hearing: No Endocrine: No Genitourinary: No Immune Disorder: No Implanted Vascular Access Dvce: Yes Kidney Stones: Yes Musculoskeletal: Yes (OPEN BOOK PELVIC FRACTURE) Neurologic: No Psychiatric: No Reproductive: No Respiratory: Yes (PE) ?: Not LMP: 01/16/17 : 1 Para: 1 Miscarriage: 0 : 0 Tubal Ligation: Yes Past Surgical History Body Medical Devices: IVC filter Section: Yes Coronary Artery Bypass Graft: No Genitourinary Surgery: Yes (LITHOTRIPSY X 2, RENAL STENT) Hysterectomy: No Other Surgery: Yes (Lithotripsy, sinus, multiple skin grafts, IVC filter) Social History Alcohol Use: No Tobacco Use: Yes (2 PPD) Substance Use: No Allergies-Medications (Allergen,Severity, Reaction): Coded Allergies: Fish Containing Products (Unverified Allergy, Severe, Throat swelling, hives, 01/27/17) aspirin (Unverified Allergy, Severe, Hives, vomiting, 01/27/17) diclofenac (Unverified Allergy, Severe, Hives, vomiting , 01/27/17) erythromycin base (Unverified Allergy, Severe, Hives, vomiting, 01/27/17) etodolac (Unverified Allergy, Severe, Hives, vomiting , 01/27/17) flurbiprofen (Unverified Allergy, Severe, Hives, vomiting , 01/27/17) ibuprofen (Unverified Allergy, Severe, Hives, vomiting , 01/27/17) indomethacin (Unverified Allergy, Severe, Hives, vomiting , 01/27/17) iodine (Unverified Allergy, Severe, Throat swelling, hives, 01/27/17) ketoprofen (Unverified Allergy, Severe, Hives, vomiting , 01/27/17) ketorolac (Unverified Allergy, Severe, Hives, vomiting , 01/27/17) naproxen (Unverified Allergy, Severe, Hives, vomiting , 01/27/17) oxaprozin (Unverified Allergy, Severe, Hives, vomiting , 01/27/17) potassium iodide (Unverified Allergy, Severe, Throat swelling, hives, 01/27) povidone-iodine (Unverified Allergy, Severe, Throat swelling, hives, ) propoxyphene (Unverified Allergy, Severe, Hives, vomiting, 01/27/17) sodium iodide (Unverified Allergy, Severe, Throat swelling, hives, 01/27/17 ) sodium iodide (Unverified Allergy, Severe, Throat swelling, hives, 01/27/17 ) tramadol (Unverified Allergy, Severe, Hives, 01/27/17) acetaminophen (Verified Allergy, Unknown, hives, 01/27/17) orphenadrine (Unverified Adverse Reaction, Severe, Insomnia , 01/27/17) Reported Meds & Prescriptions Reported Meds & Active Scripts Active Macrobid (Nitrofurantoin Monoh/Nitrofur Macro) 100 Mg Cap 100 Mg PO BID Flexeril (Cyclobenzaprine HCl) 10 Mg Tab 10 Mg PO TID Review of Systems General / Constitutional: No: Fever Eyes: No: Visual changes HENT: No: Headaches Cardiovascular: No: Chest Pain or Discomfort Respiratory: No: Shortness of Breath Gastrointestinal: Positive: Abdominal Pain Genitourinary: No: Dysuria Musculoskeletal: No: Pain Skin: Positive Other (vaginal pain), No Rash Neurologic: No: Weakness Psychiatric: No: Depression Endocrine: No: Polydipsia Hematologic/Lymphatic: No: Easy Bruising Physical Exam Narrative GENERAL: AAO x 3, no acute distress, Well-nourished, well-developed patient. SKIN: Warm and dry. No visible rashes or bruising. HEAD: Normocephalic and atraumatic. EYES: No scleral icterus. No injection or drainage. ENT: No nasal drainage noted. Mucous membranes pink. Airway patent. NECK: Supple, trachea midline. No JVD. CARDIOVASCULAR: Regular rate and rhythm without murmurs, gallops, or rubs. RESPIRATORY: Breath sounds equal bilaterally. No accessory muscle use. No rhonchi or rales. GASTROINTESTINAL: Abdomen soft, non-tender, nondistended. No rebound or guarding. Negative Hathaway's sign. Negative McBurney's point tenderness GENITAL: Caty FONTANA present: Clear cervical drainage, otherwise normal examination. No cervical motion tenderness. EXTREMITIES: No cyanosis or edema. BACK: Nontender without obvious deformity. No CVA tenderness. NEURO: CN II-12 intact, lapel baster strength normal b/l, UE and LE 5/5, no focal deficits PSYCH: AAO x 3, normal affect. Data Data Last Documented VS Vital Signs Date Time Temp Pulse Resp B/P (MAP) Pulse Ox O2 Delivery O2 Flow Rate FiO2 01/27/17 14:38 01/27/17 11:09 98.3 78 16 99 Orders Orders Complete Blood Count With Diff (01/27/17 11:30) Comprehensive Metabolic Panel (01/27/17 11:30) Gc And Chlamydia Pcr (01/27/17 11:30) Wet Prep Profile (01/27/17 11:30) Urinalysis - C+S If Indicated (01/27/17 11:30) Ed Urine Pregnancytest Poc (01/27/17 11:30) Lipase (01/27/17 11:30) Morphine Inj (Morphine Inj) (01/27/17 12:00) Us Pelvis Comp W Doppler (01/27/17 ) Labs Laboratory Tests Test 01/27/17 11:40 01/27/17 11:45 01/27/17 12:55 Urine Color LIGHT-YELLOW Urine Turbidity CLEAR Urine pH 6.0 Urine Specific [place] 1.008 Urine Protein NEG mg/dL Urine Glucose (UA) NEG mg/dL Urine Ketones NEG mg/dL Urine Occult Blood NEG Urine Nitrite NEG Urine Bilirubin NEG Urine Urobilinogen LESS THAN 2.0 MG/DL Urine Leukocyte Esterase NEG Urine WBC LESS THAN 1 /hpf Urine Squamous Epithelial Cells 2 /hpf Microscopic Urinalysis Comment CULT NOT INDICATED White Blood Count 4.8 TH/MM3 Red Blood Count 3.92 MIL/MM3 Hemoglobin 11.6 GM/DL Hematocrit 35.3 % Mean Corpuscular Volume 90.1 FL Mean Corpuscular Hemoglobin 29.7 PG Mean Corpuscular Hemoglobin Concent 33.0 % Red Cell Distribution Width 14.7 % Platelet Count 238 TH/MM3 Mean Platelet Volume 8.6 FL Neutrophils (%) (Auto) 67.2 % Lymphocytes (%) (Auto) 22.2 % Monocytes (%) (Auto) 8.4 % Eosinophils (%) (Auto) 1.6 % Basophils (%) (Auto) 0.6 % Neutrophils # (Auto) 3.3 TH/MM3 Lymphocytes # (Auto) 1.1 TH/MM3 Monocytes # (Auto) 0.4 TH/MM3 Eosinophils # (Auto) 0.1 TH/MM3 Basophils # (Auto) 0.0 TH/MM3 CBC Comment DIFF FINAL Differential Comment Blood Urea Nitrogen 11 MG/DL Creatinine 0.95 MG/DL Random Glucose 93 MG/DL Total Protein 8.0 GM/DL Albumin 3.7 GM/DL Calcium Level 8.8 MG/DL Alkaline Phosphatase 68 U/L Aspartate Amino Transf (AST/SGOT) 19 U/L Alanine Aminotransferase (ALT/SGPT) 21 U/L Total Bilirubin 0.6 MG/DL Sodium Level 138 MEQ/L Potassium Level 4.2 MEQ/L Chloride Level 107 MEQ/L Carbon Dioxide Level 25.6 MEQ/L Anion Gap 5 MEQ/L Estimat Glomerular Filtration Rate 67 ML/MIN Lipase 112 U/L Clue Cells (Wet Prep) NONE SEEN Vaginal Trichomonas (Wet Prep) NONE SEEN Vaginal Yeast (Wet Prep) NONE SEEN MDM Medical Decision Making Medical Screen Exam Complete: Yes Emergency Medical Condition: Yes Medical Record Reviewed: Yes Differential Diagnosis ovarian cyst, PID, less likely nephrolithiasis, UTI Narrative Course 36 yr old female here with c/o vaginal pain radiating into her hips. I have ordered labs, UA and US. Pelvic examination performed. Last Impressions Pelvis Ultrasound 01/27/17 0000 Signed Impressions: Service Date/Time: Friday, January 27, 2017 11:59 - CONCLUSION: Normal examination. Moe Yan MD Laboratory Tests Test 01/27/17 11:40 01/27/17 11:45 01/27/17 12:55 Urine Color LIGHT-YELLOW Urine Turbidity CLEAR Urine pH 6.0 Urine Specific [place] 1.008 Urine Protein NEG mg/dL Urine Glucose (UA) NEG mg/dL Urine Ketones NEG mg/dL Urine Occult Blood NEG Urine Nitrite NEG Urine Bilirubin NEG Urine Urobilinogen LESS THAN 2.0 MG/DL Urine Leukocyte Esterase NEG Urine WBC LESS THAN 1 /hpf Urine Squamous Epithelial Cells 2 /hpf Microscopic Urinalysis Comment CULT NOT INDICATED White Blood Count 4.8 TH/MM3 Red Blood Count 3.92 MIL/MM3 Hemoglobin 11.6 GM/DL Hematocrit 35.3 % Mean Corpuscular Volume 90.1 FL Mean Corpuscular Hemoglobin 29.7 PG Mean Corpuscular Hemoglobin Concent 33.0 % Red Cell Distribution Width 14.7 % Platelet Count 238 TH/MM3 Mean Platelet Volume 8.6 FL Neutrophils (%) (Auto) 67.2 % Lymphocytes (%) (Auto) 22.2 % Monocytes (%) (Auto) 8.4 % Eosinophils (%) (Auto) 1.6 % Basophils (%) (Auto) 0.6 % Neutrophils # (Auto) 3.3 TH/MM3 Lymphocytes # (Auto) 1.1 TH/MM3 Monocytes # (Auto) 0.4 TH/MM3 Eosinophils # (Auto) 0.1 TH/MM3 Basophils # (Auto) 0.0 TH/MM3 CBC Comment DIFF FINAL Differential Comment Blood Urea Nitrogen 11 MG/DL Creatinine 0.95 MG/DL Random Glucose 93 MG/DL Total Protein 8.0 GM/DL Albumin 3.7 GM/DL Calcium Level 8.8 MG/DL Alkaline Phosphatase 68 U/L Aspartate Amino Transf (AST/SGOT) 19 U/L Alanine Aminotransferase (ALT/SGPT) 21 U/L Total Bilirubin 0.6 MG/DL Sodium Level 138 MEQ/L Potassium Level 4.2 MEQ/L Chloride Level 107 MEQ/L Carbon Dioxide Level 25.6 MEQ/L Anion Gap 5 MEQ/L Estimat Glomerular Filtration Rate 67 ML/MIN Lipase 112 U/L Clue Cells (Wet Prep) NONE SEEN Vaginal Trichomonas (Wet Prep) NONE SEEN Vaginal Yeast (Wet Prep) NONE SEEN I have discussed all the normal results with the patient. I recommend that she establish with a local primary care provider for further workup. In the past week she's had several tests done. CT scan of the abdomen and pelvis was negative, ultrasound today is negative. She does not have any evidence of BV, Trichomonas or yeast. Gonorrhea and chlamydia are pending, however I'm doubtful that she has any of these. She will hold off on antibiotics. If any results are positive, she will be notified tomorrow. In regards to her pain. I do not see an exact etiology. I think there be some level of malingering. She has a long list of allergies to all pain medications except narcotics. I do not think narcotic pain medication would be useful as it has been shown to increase constipation, which in turn would worsening her GI issues. She needs a PCP and additional workup. Patient verbalized understanding of instructions, questions were answered, and thanked me for their care. I advised them if their condition worsens, please return to the nearest emergency room for further care. Diagnosis Primary Impression: Vaginal pain Patient Instructions: General Instructions Additional Instructions: Establish with a primary care provider for further workup including a pap smear. Please return to emergency department if your symptoms return or worsen. Follow up with your primary care provider. Med/Other Pt SpecificInfo: No Change to Meds Disposition: 01 DISCHARGE HOME Condition: Stable Rosa Madden Jan 27, 2017 11:22
[2017-01-27] MEDS ORDERED: MORPHINE SULFATE 4 MG/ML INJ IV PUSH ONE (12:00)
[2017-01-27 12:08] LABS: AUTOMATED NEUTROPHIL # 3.3 TH/MM3 (1.8-7.7); BASOPHIL % 0.6 % (0.0-2.0); EOSINOPHIL # 0.1 TH/MM3 (0-0.4); EOSINOPHIL % 1.6 % (0.0-4.0); HEMATOCRIT 35.3 % (35.0-46.0); HEMO FLAGS DIFF FINAL; LYMPH % 22.2 % (9.0-44.0); LYMPHOCYTE # 1.1 TH/MM3 (1.0-4.8); MEAN CELL VOLUME 90.1 FL (80.0-100.0); MEAN CORPUSCULAR HEMOGLOBIN 29.7 PG (27.0-34.0); MONO % 8.4 % (0.0-8.0); NEUT % 67.2 % (16.0-70.0); PLATELET COUNT 238 TH/MM3 (150-450); RED BLOOD COUNT 3.92 MIL/MM3 (4.00-5.30); RED CELL DISTRIBUTION WIDTH 14.7 % (11.6-17.2); WHITE BLOOD COUNT 4.8 TH/MM3 (4.0-11.0)
[2017-01-27 12:14] LABS: BLOOD, URINE NEG (NEG); COMMENT (UR) CULT NOT INDICATED; CULTURE IF INDICATED CULT NOT INDICATED; GLUCOSE,URINE NEG (NEG); KETONE, URINE NEG (NEG); NITRITE,URINE NEG (NEG); SQUAMOUS EPITHELIAL CELL URINE 2 /hpf (0-5); URINE COLOR LIGHT-YELLOW (YELLW/STRAW)
[2017-01-27 12:26] LABS: ALT (GPT) 21 U/L (10-53); ANION GAP 5 MEQ/L (5-15); AST (GOT) 19 U/L (15-37); BICARBONATE 25.6 MEQ/L (21.0-32.0); BLOOD UREA NITROGEN 11 MG/DL (7-18); CHLORIDE 107 MEQ/L (98-107); GLOMERULAR FILTRATION RATE 67 ML/MIN (>89); POTASSIUM 4.2 MEQ/L (3.5-5.1); SODIUM (NA) 138 MEQ/L (136-145)
[2017-01-27 12:28] LABS: ALKALINE PHOSPHATASE 68 U/L (45-117); TOTAL BILIRUBIN ADULT 0.6 MG/DL (0.2-1.0)
--- NOTE | 2017-01-27 12:48 | RADRPT ---
EXAM DATE/TIME: 01/27/2017 11:59 [facility] COMPARISON: CT ABDOMEN & PELVIS W/O CONTRAST, January 22, 2017, 23:05. INDICATIONS : Pelvic pain. MEDICAL HISTORY : Kidney stones. Hernia. SURGICAL HISTORY : Tubal ligation. section.Cardiac catheterization. Renal stent. Lithotripsy. Pelvic fracture r epair. Skin grafts ENCOUNTER: Initial ACUITY: 1 month PAIN SCORE: 6/10 LOCATION: Bilateral pelvis MEASUREMENTS: UTERUS: 7.7 x 5.5 x 3.5 cm ENDOMETRIAL STRIPE: 10 mm RIGHT OVARY: 2.7 x 2.2 x 1.6 cm LEFT OVARY: 2.7 x 2.5 x 2.1 cm FINDINGS: UTERUS: The myometrium has homogeneous echotexture without mass. RIGHT OVARY: Right ovary is normal in size. There is a 0.8 cm cyst likely representing a follicle. Blood flow is s een at the right ovary. LEFT OVARY: Ovary contains no mass or significant cystic lesion. Blood flow is seen at the left ovary. MISCELLANEOUS: No free fluid. CONCLUSION: Normal examination. Moe Yan MD on January 27, 2017 at 12:43 Board Certified Radiologist. This report was verified electronically.
[2017-01-27 15:28] LABS: CHLAMYDIA PCR NOT DETECTED (NOT DETECT); NEISSERIA PCR NOT DETECTED (NOT DETECT)
== END 2017-01-27 15:10 | disposition home or self-care (01) ==
LOC: NEPD 11:04
DX: R10.2 Pelvic and perineal pain (principal); F17.200 Nicotine dependence, unspecified, uncomplicated; Z87.39 Personal history of other diseases of the musculoskeletal system and connective tissue; Z87.442 Personal history of urinary calculi
CPT/HCPCS: 76856; 80053; 81001; 83690; 84703; 85025; 87210; 87491; 87591; 93975; 96374; 99285; J2270

== ENCOUNTER 2017-01-30 04:09 | Emergency (ER) | payer SELFPAY ==
[~2017-01-30] VITALS: Ht 172.7 cm; Wt 112.0 kg
[2017-01-30 04:18] VITALS: BP 136/82; PULSE 85; RESP 17; TEMP 98.6; O2SAT 100
[2017-01-30] MEDS ORDERED: MORPHINE SULFATE 8 MG/ML INJ IM ONE (04:30)
[2017-01-30] MEDS ORDERED: DEXAMETHASONE SOD PHOS 20 MG/5 ML VIAL IM ONE (04:30)
--- NOTE | 2017-01-30 04:33 | PD ---
HPI Chief Complaint: Fall Time Seen by Provider: 04:21 Travel History International Travel<30 days: No Contact w/Intl Traveler<30days: No Traveled to known affect area: No History of Present Illness HPI Patient is a 36-year-old female who presents to emergency room after she lost her balance getting out of her car and fell directly onto her buttocks. Reports no trauma to her head/neck. Denies LOC. Reports that she is not on any anticoagulants. Patient was able to ambulate after her fall today. Reports pain to her lower back. Denies sciatica. Denies incontinence of urine or stool. PFSH Past Medical History Hx Anticoagulant Therapy: No Asthma: No Blood Disorders: No Heart Rhythm Problems: No Cardiac Catheterization: Yes Cardiovascular Problems: No High Cholesterol: No Chemotherapy: No Congestive Heart Failure: No COPD: No Cerebrovascular Accident: No Diabetes: No Diminished Hearing: No Endocrine: No Genitourinary: No Immune Disorder: No Implanted Vascular Access Dvce: Yes Kidney Stones: Yes Musculoskeletal: Yes (OPEN BOOK PELVIC FRACTURE) Neurologic: No Psychiatric: No Reproductive: No Respiratory: Yes (PE X1) ?: Not : 1 Para: 1 Miscarriage: 0 : 0 Tubal Ligation: Yes Past Surgical History Body Medical Devices: IVC filter Section: Yes Coronary Artery Bypass Graft: No Genitourinary Surgery: Yes (LITHOTRIPSY X 2, RENAL STENT) Hysterectomy: No Other Surgery: Yes (sinus, multiple skin grafts, IVC filter) Family History Family Myocardial Infarction: Yes Social History Alcohol Use: No Tobacco Use: Yes (1/2 PPD) Substance Use: No Allergies-Medications (Allergen,Severity, Reaction): Coded Allergies: Fish Containing Products (Unverified Allergy, Severe, Throat swelling, hives, 01/30/17) aspirin (Unverified Allergy, Severe, Hives, vomiting, 01/30/17) diclofenac (Unverified Allergy, Severe, Hives, vomiting , 01/30/17) erythromycin base (Unverified Allergy, Severe, Hives, vomiting, 01/30/17) etodolac (Unverified Allergy, Severe, Hives, vomiting , 01/30/17) flurbiprofen (Unverified Allergy, Severe, Hives, vomiting , 01/30/17) ibuprofen (Unverified Allergy, Severe, Hives, vomiting , 01/30/17) indomethacin (Unverified Allergy, Severe, Hives, vomiting , 01/30/17) iodine (Unverified Allergy, Severe, Throat swelling, hives, 01/30/17) ketoprofen (Unverified Allergy, Severe, Hives, vomiting , 01/30/17) ketorolac (Unverified Allergy, Severe, Hives, vomiting , 01/30/17) naproxen (Unverified Allergy, Severe, Hives, vomiting , 01/30/17) oxaprozin (Unverified Allergy, Severe, Hives, vomiting , 01/30/17) potassium iodide (Unverified Allergy, Severe, Throat swelling, hives, 01/30) povidone-iodine (Unverified Allergy, Severe, Throat swelling, hives, ) propoxyphene (Unverified Allergy, Severe, Hives, vomiting, 01/30/17) sodium iodide (Unverified Allergy, Severe, Throat swelling, hives, 01/30/17 ) sodium iodide (Unverified Allergy, Severe, Throat swelling, hives, 01/30/17 ) tramadol (Unverified Allergy, Severe, Hives, 01/30/17) acetaminophen (Verified Allergy, Unknown, hives, 01/30/17) orphenadrine (Unverified Adverse Reaction, Severe, Insomnia , 01/30/17) Reported Meds & Prescriptions Reported Meds & Active Scripts Active Macrobid (Nitrofurantoin Monoh/Nitrofur Macro) 100 Mg Cap 100 Mg PO BID Flexeril (Cyclobenzaprine HCl) 10 Mg Tab 10 Mg PO TID Review of Systems General / Constitutional: No: Fever Eyes: No: Visual changes HENT: No: Headaches Cardiovascular: No: Chest Pain or Discomfort Respiratory: No: Shortness of Breath Gastrointestinal: No: Abdominal Pain Genitourinary: No: Dysuria Musculoskeletal: Positive: Pain (low back pain) Skin: No Rash Neurologic: No: Weakness Psychiatric: No: Depression Endocrine: No: Polydipsia Hematologic/Lymphatic: No: Easy Bruising Physical Exam Narrative GENERAL: mild distress SKIN: Focused skin assessment warm/dry. HEAD: Atraumatic. Normocephalic. ENT: No nasal bleeding or discharge. Mucous membranes pink and moist. NECK: Trachea midline. No JVD. Patient with no midline tenderness, patient with normal range of motion to the cervical spine, no tenderness with range of motion. CARDIOVASCULAR: Regular rate and rhythm. No murmur appreciated. RESPIRATORY: No accessory muscle use. Clear to auscultation. Breath sounds equal bilaterally. GASTROINTESTINAL: Abdomen soft, non-tender, nondistended. Hepatic and splenic margins not palpable. Pelvis is stable. MUSCULOSKELETAL: No obvious deformities. No clubbing. No cyanosis. No edema. Patient with no midline thoracic or lumbar tenderness. Patient with bilateral paraspinal lumbar tenderness. Patient does have pain with leg raises b/l. NEUROLOGICAL: Awake and alert. No obvious cranial nerve deficits. Motor grossly within normal limits. Normal speech. PSYCHIATRIC: Appropriate mood and affect; insight and judgment normal. Data Data Last Documented VS Vital Signs Date Time Temp Pulse Resp B/P (MAP) Pulse Ox O2 Delivery O2 Flow Rate FiO2 01/30/17 04:21 85 17 100 Room Air 01/30/17 04:18 98.6 136/82 (100) Orders Orders Pelvis Complete, Min 3 Vws (01/30/17 ) Ct Lumb Spine W/O Contrast (01/30/17 04:21) Dexamethasone Inj (Decadron Inj) (01/30/17 04:30) Morphine Inj (Morphine Inj) (01/30/17 04:30) MDM Medical Decision Making Medical Screen Exam Complete: Yes Emergency Medical Condition: Yes Medical Record Reviewed: Yes Interpretation(s) Vital Signs Date Time Temp Pulse Resp B/P (MAP) Pulse Ox O2 Delivery O2 Flow Rate FiO2 01/30/17 04:21 85 17 100 Room Air 01/30/17 04:18 98.6 85 17 136/82 (100) 100 Differential Diagnosis lumbar sprain, lumbar fracture, pelvic fracture Narrative Course Patient is a 36 year old female who lost her balance while getting out of her car today and fell landing onto her buttocks. Patient with only c/o of low back pain. She was able to ambulate after her fall. No LOC. No trauma to head/ neck. xray of pelvis ordered. CT of lumbar spine ordered. patient was given a dose of dexamethasone as well as morphine IM Diagnosis Primary Impression: Low back pain Qualified Codes: M54.5 - Low back pain Patient Instructions: General Instructions, Narcotic given in the ED Kim Shirley DO Jan 30, 2017 04:33
[2017-01-30] MEDS ORDERED: DIAZEPAM 10 MG TAB PO ONE (04:45)
--- NOTE | 2017-01-30 04:51 | RADRPT ---
EXAM DATE/TIME: 01/30/2017 04:27 [facility] COMPARISON: No previous studies available for comparison. INDICATIONS : Low back pain. RADIATION DOSE: 42.08 CTDIvol (mGy) ; Patient body habitus MEDICAL HISTORY : PE, prior pelvic fracture SURGICAL HISTORY : section. Tubal ligation.IVC filter ENCOUNTER: Initial ACUITY: 1 day PAIN SCALE: 7/10 LOCATION: lower back TECHNIQUE: Volumetric scanning of the lumbar spine was performed. Multiplanar reconstructions in the sagittal, coronal and oblique axial planes were performed. Using automated exposure control and adjustment of the mA and/or kV according to patient size, radiation dose was kept as low as reasonably achievable t o obtain optimal diagnostic quality images. DICOM format image data is available electronically for review and comparison. FINDINGS: VERTEBRAE: Normal vertebral body height. ALIGNMENT: No evidence of subluxation. T12-L1: The thecal sac has a normal diameter. No evidence of disc bulge or protrusion. The neural foramina are patent bilaterally. L1-L2: The thecal sac has a normal diameter. No evidence of disc bulge or protrusion. The neural foramina are patent bilaterally. L2-L3: The thecal sac has a normal diameter. No evidence of disc bulge or protrusion. The neural foramina are patent bilaterally. L3-L4: The thecal sac has a normal diameter. No evidence of disc bulge or protrusion. The neural foramina are patent bilaterally. L4-L5: The thecal sac has a normal diameter. No evidence of disc bulge or protrusion. The neural foramina are patent bilaterally. L5-S1: Mild central disc bulge. No central canal stenosis. Neural foramina are patent. CONCLUSION: No acute disease. Stewart Morales Jr., MD on January 30, 2017 at 4:47 Board Certified Radiologist. This report was verified electronically.
[2017-01-30 04:59] VITALS: BP 152/93; PULSE 71; RESP 16; O2SAT 100
--- NOTE | 2017-01-30 05:36 | RADRPT ---
EXAM DATE/TIME: 01/30/2017 04:57 [facility] COMPARISON: PELVIS AP ONLY, February 01, 2013, 20:50. INDICATIONS : Fall previous hip fracture. MEDICAL HISTORY : Renal calculi. Pulmonary embolism. Pelvic trauma. SURGICAL HISTORY : Tubal ligation. section.Pelvic repair. IVC filter. Renal stent. ENCOUNTER: Initial ACUITY: 1 day PAIN SCORE: 0/10 LOCATION: Bilateral Pelvis FINDINGS: 2 portable frontal views of the pelvis show no acute fracture. Old trauma involving the pubic rami bi laterally. Enthesopathic changes involving the right iliac wing anteriorly. Degenerative changes invo lving the SI joints. IVC filter overlies the spine. CONCLUSION: Old trauma. No acute abnormality. Stewart Morales Jr., MD on January 30, 2017 at 5:33 Board Certified Radiologist. This report was verified electronically.
[2017-01-30 06:06] VITALS: BP 143/82; PULSE 71; RESP 14; O2SAT 100
== END 2017-01-30 06:21 | disposition home or self-care (01) ==
LOC: NEPC 04:09
DX: M54.5 Low back pain (principal)
CPT/HCPCS: 72131; 72170; 96372; 99285; J1100; J2270

== ENCOUNTER 2017-03-13 09:55 | Emergency (ER) | payer SELFPAY ==
[~2017-03-13] VITALS: Ht 175.3 cm; Wt 112.5 kg
[2017-03-13 10:01] VITALS: BP 144/87; PULSE 77; RESP 16; TEMP 98.7; O2SAT 100
[2017-03-13 10:50] LABS: AUTOMATED NEUTROPHIL # 3.1 TH/MM3 (1.8-7.7); BASOPHIL % 0.8 % (0.0-2.0); EOSINOPHIL # 0.1 TH/MM3 (0-0.4); EOSINOPHIL % 1.8 % (0.0-4.0); HEMATOCRIT 36.5 % (35.0-46.0); HEMO FLAGS DIFF FINAL; LYMPH % 22.5 % (9.0-44.0); MEAN CELL VOLUME 90.6 FL (80.0-100.0); MEAN CORPUSCULAR HEMOGLOBIN 30.2 PG (27.0-34.0); MEAN CORPUSCULAR HGB CONC 33.4 % (32.0-36.0); MONO % 7.3 % (0.0-8.0); NEUT % 67.6 % (16.0-70.0); PLATELET COUNT 263 TH/MM3 (150-450); RED BLOOD COUNT 4.03 MIL/MM3 (4.00-5.30); WHITE BLOOD COUNT 4.6 TH/MM3 (4.0-11.0)
--- NOTE | 2017-03-13 10:51 | PD ---
HPI Chief Complaint: Flank/Kidney Pain Time Seen by Provider: 10:51 Travel History International Travel<30 days: No Contact w/Intl Traveler<30days: No Traveled to known affect area: No History of Present Illness HPI 36-year-old female came to the emergency room with history of flank pain on the right side going down to her right groin. Patient says she has history of kidney stone and this feels like a kidney stone. She had blood test and urine analysis initiated in triage. No aggravating or relieving factors. The pain is just there. Patient says this started last night. She has been nauseous and vomiting as per her. Vital signs otherwise stable. Patient has been in this department multiple times for various pain related complaints. She has a long list of medication allergies. [facility] Past Medical History Narrative Medical List of her past medical, surgical, social and family history is reviewed from the nursing note. Hx Anticoagulant Therapy: No Asthma: No Blood Disorders: No Heart Rhythm Problems: No Cardiac Catheterization: Yes Cardiovascular Problems: No High Cholesterol: No Chemotherapy: No Congestive Heart Failure: No COPD: No Cerebrovascular Accident: No Diabetes: No Diminished Hearing: No Endocrine: No Genitourinary: No Immune Disorder: No Implanted Vascular Access Dvce: Yes Kidney Stones: Yes Musculoskeletal: Yes (OPEN BOOK PELVIC FRACTURE) Neurologic: No Psychiatric: No Reproductive: No Respiratory: Yes (PE X1) ?: Not : 1 Para: 1 Miscarriage: 0 : 0 Tubal Ligation: Yes Past Surgical History Body Medical Devices: IVC filter Section: Yes Coronary Artery Bypass Graft: No Genitourinary Surgery: Yes (LITHOTRIPSY X 2, RENAL STENT) Hysterectomy: No Other Surgery: Yes (sinus, multiple skin grafts, IVC filter) Family History Family Myocardial Infarction: Yes Social History Alcohol Use: No Tobacco Use: Yes (1/2 PPD) Substance Use: Yes (HX OF) Allergies-Medications (Allergen,Severity, Reaction): Coded Allergies: Fish Containing Products (Verified Allergy, Unknown, 03/13/17) Iodine and Iodide Containing Produc (Verified Allergy, Unknown, 03/13/17) acetaminophen (Verified Allergy, Unknown, 03/13/17) azithromycin (Verified Allergy, Unknown, 03/13/17) ibuprofen (Verified Allergy, Unknown, 03/13/17) ketorolac (Verified Allergy, Unknown, 03/13/17) tramadol (Verified Allergy, Unknown, 03/13/17) Comments List of her allergies reviewed from the nursing note. Reported Meds & Prescriptions Reported Meds & Active Scripts Active No Active Prescriptions or Reported Medications Narrative Medication List of her home medications reviewed from the nursing note. Review of Systems Except as stated in HPI: all other systems reviewed are Neg Genitourinary: Positive: Flank Pain Physical Exam Narrative GENERAL: Awake, alert, moderate distress SKIN: Focused skin assessment warm/dry. HEAD: Atraumatic. Normocephalic. EYES: Pupils equal and round. No scleral icterus. No injection or drainage. ENT: No nasal bleeding or discharge. Mucous membranes pink and moist. NECK: Trachea midline. No JVD. CARDIOVASCULAR: Regular rate and rhythm. No murmur appreciated. RESPIRATORY: No accessory muscle use. Clear to auscultation. Breath sounds equal bilaterally. GASTROINTESTINAL: Abdomen soft, non-tender, nondistended. Hepatic and splenic margins not palpable. MUSCULOSKELETAL: No obvious deformities. No clubbing. No cyanosis. No edema. NEUROLOGICAL: Awake and alert. No obvious cranial nerve deficits. Motor grossly within normal limits. Normal speech. PSYCHIATRIC: Appropriate mood and affect; insight and judgment normal. Data Data Last Documented VS Vital Signs Date Time Temp Pulse Resp B/P (MAP) Pulse Ox O2 Delivery O2 Flow Rate FiO2 03/13/17 12:54 03/13/17 10:48 17 03/13/17 10:01 98.7 77 100 Room Air Orders Orders Urinalysis - C+S If Indicated (03/13/17 10:10) Ed Urine Pregnancytest Poc (03/13/17 10:10) Complete Blood Count With Diff (03/13/17 10:10) Basic Metabolic Panel (Bmp) (03/13/17 10:10) Acetamin-Hydrocod 325-5 Mg ([place] 5-325 (03/13/17 11:00) Ct Abd/Pel W/O Iv Contrast (03/13/17 ) Ed Discharge Order (03/13/17 12:14) Labs Laboratory Tests Test 03/13/17 10:25 03/13/17 10:30 Urine Color YELLOW Urine Turbidity HAZY Urine pH 6.0 Urine Specific [place] 1.021 Urine Protein NEG mg/dL Urine Glucose (UA) NEG mg/dL Urine Ketones NEG mg/dL Urine Occult Blood LARGE Urine Nitrite NEG Urine Bilirubin NEG Urine Urobilinogen LESS THAN 2.0 MG/DL Urine Leukocyte Esterase NEG Urine RBC /hpf Urine WBC 1 /hpf Urine Squamous Epithelial Cells 5 /hpf Urine Bacteria RARE /hpf Urine Mucus FEW /lpf Microscopic Urinalysis Comment CULT NOT INDICATED White Blood Count 4.6 TH/MM3 Red Blood Count 4.03 MIL/MM3 Hemoglobin 12.2 GM/DL Hematocrit 36.5 % Mean Corpuscular Volume 90.6 FL Mean Corpuscular Hemoglobin 30.2 PG Mean Corpuscular Hemoglobin Concent 33.4 % Red Cell Distribution Width 15.0 % Platelet Count 263 TH/MM3 Mean Platelet Volume 7.9 FL Neutrophils (%) (Auto) 67.6 % Lymphocytes (%) (Auto) 22.5 % Monocytes (%) (Auto) 7.3 % Eosinophils (%) (Auto) 1.8 % Basophils (%) (Auto) 0.8 % Neutrophils # (Auto) 3.1 TH/MM3 Lymphocytes # (Auto) 1.0 TH/MM3 Monocytes # (Auto) 0.3 TH/MM3 Eosinophils # (Auto) 0.1 TH/MM3 Basophils # (Auto) 0.0 TH/MM3 CBC Comment DIFF FINAL Differential Comment Blood Urea Nitrogen 22 MG/DL Creatinine 0.88 MG/DL Random Glucose 92 MG/DL Calcium Level 8.5 MG/DL Sodium Level 139 MEQ/L Potassium Level 4.5 MEQ/L Chloride Level 108 MEQ/L Carbon Dioxide Level 25.6 MEQ/L Anion Gap 5 MEQ/L Estimat Glomerular Filtration Rate 73 ML/MIN MDM Medical Decision Making Medical Screen Exam Complete: Yes Emergency Medical Condition: Yes Medical Record Reviewed: Yes Differential Diagnosis Renal calculi, UTI, Narrative Course 2:20 PM blood test results of back and within acceptable limit. Patient has large amount of blood in her urine. For the CT scan is negative for any ureteral stone. Patient might be malingering. I'll discharge her home. She was medicated for pain initially when she came in. Diagnosis Primary Impression: Musculoskeletal disorder Referrals: Primary Care Physician Additional Instructions: Please return to the ER if the condition worsens or any other new concerns. Otherwise follow-up with your primary care. Med/Other Pt SpecificInfo: No Change to Meds Scripts No Active Prescriptions or Reported Meds Disposition: DISCHARGE HOME Condition: Stable Jacque Morton MD Mar 13, 2017 10:51
[2017-03-13] MEDS ORDERED: ACETAMINOPHEN/HYDROcodone 325 MG/5 MG TAB PO ONE (11:00)
[2017-03-13 11:02] LABS: BACTERIA, URINE RARE /hpf; BLOOD, URINE LARGE (NEG); COMMENT (UR) CULT NOT INDICATED; CULTURE IF INDICATED CULT NOT INDICATED; GLUCOSE,URINE NEG (NEG); KETONE, URINE NEG (NEG); MUCUS URINE FEW /lpf (OCC); NITRITE,URINE NEG (NEG); SQUAMOUS EPITHELIAL CELL URINE 5 /hpf (0-5); URINE COLOR YELLOW (YELLW/STRAW)
[2017-03-13 11:06] LABS: BICARBONATE 25.6 MEQ/L (21.0-32.0); POTASSIUM 4.5 MEQ/L (3.5-5.1)
--- NOTE | 2017-03-13 12:01 | RADRPT ---
EXAM DATE/TIME: 03/13/2017 11:43 [facility] COMPARISON: CT ABDOMEN & PELVIS W/O CONTRAST, January 22, 2017, 23:05. INDICATIONS : Right lower quadrant and flank pain ORAL CONTRAST: No oral contrast ingested. RADIATION DOSE: 11.30 CTDIvol (mGy) MEDICAL HISTORY : Renal calculi. SURGICAL HISTORY : section. renal stents ENCOUNTER: Initial ACUITY: 1 day PAIN SCALE: 9/10 LOCATION: Right lower quadrant TECHNIQUE: Volumetric scanning of the abdomen and pelvis was performed. Using automated exposure control and ad justment of the mA and/or kV according to patient size, radiation dose was kept as low as reasonably achievable to obtain optimal diagnostic quality images. DICOM format image data is available electro nically for review and comparison. FINDINGS: LOWER LUNGS: The visualized lower lungs are clear. LIVER: Homogeneous density without lesion. There is no dilation of the biliary tree. No calcified gallston es. SPLEEN: Normal size without lesion. PANCREAS: Within normal limits. KIDNEYS: Normal in size and shape. There is no mass, stone, or hydronephrosis. ADRENAL GLANDS: Within normal limits. VASCULAR: There is no aortic aneurysm. An inferior vena caval filter is again noted. BOWEL/MESENTERY: There are multiple loops of nondilated air-containing small bowel in the central left abdomen with se veral small air-fluid levels. Gas and stool is noted throughout the colon. There is no inflammatory c hange or evidence of obstruction. There is no free intraperitoneal air or fluid. ABDOMINAL WALL: Within normal limits. RETROPERITONEUM: There is no lymphadenopathy. BLADDER: No wall thickening or mass. REPRODUCTIVE: Within normal limits. INGUINAL: There is no lymphadenopathy or hernia. MUSCULOSKELETAL: Multiple pelvic fractures are again noted. A hernia defect is again noted along the right posterior a bdominal wall musculature with herniation of a portion of the ascending colon through the defect. The re is no wall thickening or inflammatory change. There is no obstruction. CONCLUSION: 1. Kidneys remain unremarkable in appearance with no renal calculi or obstruction. 2. Right lateral hernia defect again noted with a portion of the ascending colon extending through th e defect with no wall thickening, inflammatory change or obstruction. 3. Mildly nonspecific, nonobstructive bowel gas pattern which may represent mild ileus or gastroenter itis. Steffen Hood MD on March 13, 2017 at 11:56 Board Certified Radiologist. This report was verified electronically.
== END 2017-03-13 12:55 | disposition home or self-care (01) ==
LOC: NEPE 09:55
DX: M79.9 Soft tissue disorder, unspecified (principal); K40.90 Unilateral inguinal hernia, without obstruction or gangrene, not specified as recurrent; R31.9 Hematuria, unspecified; R11.2 Nausea with vomiting, unspecified; F17.200 Nicotine dependence, unspecified, uncomplicated; Z87.442 Personal history of urinary calculi
CPT/HCPCS: 74176; 80048; 81001; 84703; 85025; 99284

== ENCOUNTER 2017-04-08 05:59 | Emergency (ER) | payer SELFPAY ==
[~2017-04-08] VITALS: Ht 172.7 cm; Wt 110.0 kg
[2017-04-08 06:04] VITALS: BP 144/86; PULSE 78; RESP 16; TEMP 98.7; O2SAT 100
[2017-04-08] MEDS ORDERED: SODIUM CHLORIDE 0.9% FLUSH 10 ML FLUSH IVF PRN (06:30)
[2017-04-08] MEDS ORDERED: MORPHINE SULFATE 4 MG/ML INJ IV PUSH ONE ×2 (06:30→09:00)
--- NOTE | 2017-04-08 06:44 | PD ---
HPI Chief Complaint: Chest Pain Time Seen by Provider: 06:07 Travel History International Travel<30 days: No Contact w/Intl Traveler<30days: No Traveled to known affect area: No History of Present Illness HPI Patient is a 36-year-old female comes in complaining of left-sided chest pain that woke her up from sleep this morning. She says the pain radiates down her left arm. She says the pain is sharp in nature. She said she had similar pain in June when she was admitted and had a cardiac catheter done. She also says she had similar pain when she was diagnosed with a PE in July. She has strong family history of AR with a brother that in his 30s and a father that 42 from an AR. She is not taking any blood thinners. She has an allergy to aspirin. She denies shortness of breath, nausea or vomiting. PFSH Past Medical History Hx Anticoagulant Therapy: No Asthma: No Blood Disorders: No Heart Rhythm Problems: No Cardiac Catheterization: Yes Cardiovascular Problems: No High Cholesterol: No Chemotherapy: No Congestive Heart Failure: No COPD: No Cerebrovascular Accident: No Diabetes: No Diminished Hearing: No Endocrine: No Gastrointestinal Disorders: Yes (HERNIA) Genitourinary: No Immune Disorder: No Implanted Vascular Access Dvce: Yes Kidney Stones: Yes Musculoskeletal: Yes (OPEN BOOK PELVIC FRACTURE) Neurologic: No Psychiatric: No Reproductive: No Respiratory: Yes (PE X1) ?: Not : 1 Para: 1 Miscarriage: 0 : 0 Tubal Ligation: Yes Past Surgical History Body Medical Devices: IVC filter Section: Yes Coronary Artery Bypass Graft: No Genitourinary Surgery: Yes (LITHOTRIPSY X 2, RENAL STENT) Hysterectomy: No Other Surgery: Yes (sinus, multiple skin grafts, IVC filter) Family History Family Myocardial Infarction: Yes Social History Alcohol Use: No Tobacco Use: Yes (05/14 PPD) Substance Use: Yes (HX OF 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) Allergies-Medications (Allergen,Severity, Reaction): Coded Allergies: Fish Containing Products (Verified Allergy, Unknown, 03/13/17) Iodine and Iodide Containing Produc (Verified Allergy, Unknown, 03/13/17) acetaminophen (Verified Allergy, Unknown, 03/13/17) aspirin (Verified Allergy, Unknown, HIVES, 04/08/17) azithromycin (Verified Allergy, Unknown, 03/13/17) ibuprofen (Verified Allergy, Unknown, 03/13/17) ketorolac (Verified Allergy, Unknown, 03/13/17) tramadol (Verified Allergy, Unknown, 03/13/17) Reported Meds & Prescriptions Reported Meds & Active Scripts Active No Active Prescriptions or Reported Medications Review of Systems Except as stated in HPI: all other systems reviewed are Neg General / Constitutional: No: Fever, Chills HENT: No: Headaches, Lightheadedness Cardiovascular: Positive: Chest Pain or Discomfort Respiratory: No: Shortness of Breath Gastrointestinal: No: Nausea, Vomiting Musculoskeletal: No: Edema, Pain Skin: No Rash, No Change in Pigmentation Neurologic: No: Weakness, Dizziness Physical Exam Narrative GENERAL: Awake and alert, in no acute distress. SKIN: Focused skin assessment warm/dry. HEAD: Atraumatic. Normocephalic. EYES: Pupils equal and round. No scleral icterus. ENT: Mucous membranes pink and moist. NECK: Trachea midline. No JVD. CARDIOVASCULAR: Regular rate and rhythm. No murmur appreciated. RESPIRATORY: No accessory muscle use. Clear to auscultation. Breath sounds equal bilaterally. GASTROINTESTINAL: Abdomen soft, non-tender, nondistended. MUSCULOSKELETAL: No obvious deformities. No clubbing. No cyanosis. No edema. NEUROLOGICAL: Awake and alert. No obvious cranial nerve deficits. Motor grossly within normal limits. Normal speech. PSYCHIATRIC: Appropriate mood and affect; insight and judgment normal. Data Data Last Documented VS Vital Signs Date Time Temp Pulse Resp B/P (MAP) Pulse Ox O2 Delivery O2 Flow Rate FiO2 04/08/17 06:08 74 04/08/17 06:04 98.7 16 144/86 (105) 100 Orders Orders Electrocardiogram (04/08/17 06:26) Ckmb (Isoenzyme) Profile (04/08/17 06:26) Complete Blood Count With Diff (04/08/17 06:26) Comprehensive Metabolic Panel (04/08/17 06:26) Prothrombin Time / Inr (Pt) (04/08/17 06:26) Act Partial Throm Time (Ptt) (04/08/17 06:26) Troponin I (04/08/17 06:26) Chest, Single Ap (04/08/17 06:26) Ventilation & Perfusion Scan (04/08/17 06:26) Ecg Monitoring (04/08/17 06:26) Bilateral Bp Monitoring (04/08/17 06:26) Iv Access Insert/Monitor (04/08/17 06:26) Oximetry (04/08/17 06:26) Oxygen Administration (04/08/17 06:26) Morphine Inj (Morphine Inj) (04/08/17 06:30) Sodium Chloride 0.9% Flush (Ns Flush) (04/08/17 06:30) MDM Medical Decision Making Medical Screen Exam Complete: Yes Emergency Medical Condition: Yes Medical Record Reviewed: Yes Interpretation(s) ECG shows normal sinus rhythm at 68, no ST elevation or depression, normal intervals Differential Diagnosis ACS versus costochondritis versus pneumonia versus pneumothorax versus PE Narrative Course Patient is a 36-year-old female comes in complaining of chest pain that radiates down her left arm. Exam shows no acute abnormalities. IV established , labs sent. Patient given morphine for pain. VQ scan ordered. Patient signed out to Dr. Nj to follow up testing and disposition the patient. Scripts No Active Prescriptions or Reported Meds Beverley Greene MD Apr 08, 2017 06:44
--- NOTE | 2017-04-08 06:57 | RADRPT ---
EXAM DATE/TIME: 04/08/2017 06:39 [facility] COMPARISON: CHEST SINGLE AP, August 12, 2016, 8:58. INDICATIONS : Chest pain to medial chest that patient claims radiates down through left arm. MEDICAL HISTORY : None. SURGICAL HISTORY : None. ENCOUNTER: Initial ACUITY: 1 day PAIN SCORE: 0/10 LOCATION: Bilateral chest FINDINGS: A single view of the chest demonstrates the lungs to be symmetrically aerated without evidence of mas s, infiltrate or effusion. The cardiomediastinal contours are unremarkable. Osseous structures are intact. CONCLUSION: Normal examination. Moe Yan MD on April 08, 2017 at 6:55 Board Certified Radiologist. This report was verified electronically.
[2017-04-08 07:04] LABS: AUTOMATED NEUTROPHIL # 3.1 TH/MM3 (1.8-7.7); BASOPHIL % 0.8 % (0.0-2.0); EOSINOPHIL # 0.1 TH/MM3 (0-0.4); EOSINOPHIL % 1.5 % (0.0-4.0); HEMATOCRIT 35.3 % (35.0-46.0); HEMO FLAGS DIFF FINAL; LYMPH % 23.5 % (9.0-44.0); LYMPHOCYTE # 1.1 TH/MM3 (1.0-4.8); MEAN CELL VOLUME 89.7 FL (80.0-100.0); MEAN CORPUSCULAR HEMOGLOBIN 31.5 PG (27.0-34.0); MEAN CORPUSCULAR HGB CONC 35.1 % (32.0-36.0); MONO % 9.1 % (0.0-8.0); NEUT % 65.1 % (16.0-70.0); PLATELET COUNT 237 TH/MM3 (150-450); RED BLOOD COUNT 3.93 MIL/MM3 (4.00-5.30); RED CELL DISTRIBUTION WIDTH 14.5 % (11.6-17.2); WHITE BLOOD COUNT 4.7 TH/MM3 (4.0-11.0)
[2017-04-08 07:15] LABS: ALT (GPT) 27 U/L (10-53); ANION GAP 5 MEQ/L (5-15); APTT (PATIENT) 26.6 SEC (24.3-30.1); AST (GOT) 23 U/L (15-37); BICARBONATE 26.7 MEQ/L (21.0-32.0); BLOOD UREA NITROGEN 11 MG/DL (7-18); CHLORIDE 110 MEQ/L (98-107); GLOMERULAR FILTRATION RATE 76 ML/MIN (>89); POTASSIUM 4.3 MEQ/L (3.5-5.1); PROTHROMBIN TIME - PATIENT 10.6 SEC (9.8-11.6); SODIUM (NA) 142 MEQ/L (136-145)
[2017-04-08 07:18] LABS: ALKALINE PHOSPHATASE 61 U/L (45-117); CREATINE KINASE 301 U/L (26-192); TOTAL BILIRUBIN ADULT 0.4 MG/DL (0.2-1.0)
--- NOTE | 2017-04-08 08:23 | EKG ---
Date Performed: 04/08/2017 Time Performed: 06:27:16 PTAGE: 36 years EKG: Sinus rhythm NORMAL ECG NO PREVIOUS TRACING DOCTOR: Jhonathan Shipman Interpretating Date/Time 04/08/2017 08:22:43
[2017-04-08 09:40] VITALS: BP 97/58; PULSE 54; RESP 17; O2SAT 100
[2017-04-08 10:40] LABS: CREATINE KINASE 231 U/L (26-192)
[2017-04-08 10:52] LABS: CKMB 1.5 NG/ML (0.5-3.6)
--- NOTE | 2017-04-08 11:35 | RADRPT ---
EXAM DATE/TIME: 04/08/2017 10:15 [facility] COMPARISON: CHEST SINGLE AP, April 08, 2017, 6:39. INDICATIONS : Dyspnea and chest pain. History of pulmonary embolism. DOSE: 0.99 mCi Tc99m DTPA 8.8 mCi Tc99m MAA MEDICAL HISTORY : Smoker. Pulmonary embolism. SURGICAL HISTORY : IVC Filter placement. Tubal ligation. Umbilical hernia repair. ENCOUNTER: Initial ACUITY: 1 day PAIN SCALE: 0/10 LOCATION: Bilateral chest TECHNIQUE: Following five minutes of tidal breathing of DTPA aerosol, planar images of the lungs were performed in eight projections. The patient was then injected with MAA, and eight-view perfusion scan was perf ormed. FINDINGS: Heterogeneous ventilation with prominent central deposition of tracer. Heterogeneous perfusion with vague nonsegmental defects. Overall appearance suggestive of airways disease. CONCLUSION: Low probability scan for pulmonary embolism Moe Boyd MD on April 08, 2017 at 11:30 Board Certified Radiologist. This report was verified electronically.
[2017-04-08] MEDS ORDERED: HYDR-3516 PO (12:12)
[2017-04-08] MEDS ORDERED: CYCL5TAB PO (12:12)
--- NOTE | 2017-04-08 12:16 | PD ---
Physical Exam Date Seen by Provider: Apr 08, 2017 Time Seen by Provider: 07:00 Narrative The patient was signed out to me by Dr. Márquez at 7 AM. This was changed shift. The patient had chest pain and has a history of pulmonary him a light. She was only on one month of anticoagulation. The patient was allergic to iodine/IV contrast of a VQ scan was ordered. Data Data Last Documented VS Vital Signs Date Time Temp Pulse Resp B/P (MAP) Pulse Ox O2 Delivery O2 Flow Rate FiO2 04/08/17 09:40 54 17 97/58 (71) 100 Room Air 04/08/17 06:04 98.7 Orders Orders Electrocardiogram (04/08/17 06:26) Ckmb (Isoenzyme) Profile (04/08/17 06:26) Complete Blood Count With Diff (04/08/17 06:26) Comprehensive Metabolic Panel (04/08/17 06:26) Prothrombin Time / Inr (Pt) (04/08/17 06:26) Act Partial Throm Time (Ptt) (04/08/17 06:26) Troponin I (04/08/17 06:26) Chest, Single Ap (04/08/17 06:26) Ventilation & Perfusion Scan (04/08/17 06:26) Ecg Monitoring (04/08/17 06:26) Bilateral Bp Monitoring (04/08/17:26) Iv Access Insert/Monitor (04/08/17 06:26) Oximetry (04/08/17 06:26) Oxygen Administration (04/08/17 06:26) Morphine Inj (Morphine Inj) (04/08/17 06:30) Sodium Chloride 0.9% Flush (Ns Flush) (04/08/17 06:30) CKMB (04/08/17 06:30) CKMB% (04/08/17 06:30) Morphine Inj (Morphine Inj) (04/08/17 09:00) Electrocardiogram (04/08/17 10:03) Ckmb (Isoenzyme) Profile (04/08/17 10:03) Troponin I (04/08/17 10:03) CKMB (04/08/17 10:05) CKMB% (04/08/17 10:05) Labs Laboratory Tests Test 04/08/17 06:30 04/08/17 10:05 White Blood Count 4.7 TH/MM3 Red Blood Count 3.93 MIL/MM3 Hemoglobin 12.4 GM/DL Hematocrit 35.3 % Mean Corpuscular Volume 89.7 FL Mean Corpuscular Hemoglobin 31.5 PG Mean Corpuscular Hemoglobin Concent 35.1 % Red Cell Distribution Width 14.5 % Platelet Count 237 TH/MM3 Mean Platelet Volume 8.5 FL Neutrophils (%) (Auto) 65.1 % Lymphocytes (%) (Auto) 23.5 % Monocytes (%) (Auto) 9.1 % Eosinophils (%) (Auto) 1.5 % Basophils (%) (Auto) 0.8 % Neutrophils # (Auto) 3.1 TH/MM3 Lymphocytes # (Auto) 1.1 TH/MM3 Monocytes # (Auto) 0.4 TH/MM3 Eosinophils # (Auto) 0.1 TH/MM3 Basophils # (Auto) 0.0 TH/MM3 CBC Comment DIFF FINAL Differential Comment Prothrombin Time 10.6 SEC Prothromb Time International Ratio 1.0 RATIO Activated Partial Thromboplast Time 26.6 SEC Blood Urea Nitrogen 11 MG/DL Creatinine 0.85 MG/DL Random Glucose 98 MG/DL Total Protein 7.1 GM/DL Albumin 3.4 GM/DL Calcium Level 8.4 MG/DL Alkaline Phosphatase 61 U/L Aspartate Amino Transf (AST/SGOT) 23 U/L Alanine Aminotransferase (ALT/SGPT) 27 U/L Total Bilirubin 0.4 MG/DL Sodium Level 142 MEQ/L Potassium Level 4.3 MEQ/L Chloride Level 110 MEQ/L Carbon Dioxide Level 26.7 MEQ/L Anion Gap 5 MEQ/L Estimat Glomerular Filtration Rate 76 ML/MIN Total Creatine Kinase 301 U/L 231 U/L Creatine Kinase MB 2.0 NG/ML 1.5 NG/ML Creatine Kinase MB % 0.7 % 0.6 % Troponin I LESS THAN 0.02 NG/ML LESS THAN 0.02 NG/ML MDM Medical Record Reviewed: Yes Supervised Visit with [facility]: No Narrative Course 36 year old female presents with chest pain and shortness breath. Patient has had recent cardiac workup that was essentially negative. The patient has had 2 sets of cardiac enzymes 3 hours apart which are both negative. EKG showed no evidence of acute process. VQ scan shows low probability for pulmonary embolus. Given this, the patient will be discharged. I informed that there are many causes of chest pain and does not appear to be cardiac or pulmonary at this time. She is will be given a prescription for Lortab 09/12/24. She is instructed take them every 8 hours as needed. She is also instructed to avoid driving or operating heavy equipment while taking this medication. There is also a prescription for Flexeril 5 mg 3 times a day 5 days. Diagnosis Primary Impression: Atypical chest pain Additional Impression: History of pulmonary embolus (PE) Referrals: [facility] Additional Instruction: Return if feeling worse. Follow up with primary care physician. I will give him the information on the [facility] Med/Other Pt SpecificInfo: Prescription(s) given Scripts Cyclobenzaprine (Flexeril) 5 Mg Tab 5 MG PO TID for Muscle Spasm, #15 TAB 0 Refills Prov: Grant Nj MD 04/08/17 Hydrocodone/Acetaminophen (Hydrocodone-Acetamin 5-325 mg) 5 Mg-325 Mg Tablet 1 TAB PO Q8HR for sandrine, #10 Prov: Grant Nj MD 04/08/17 Disposition: 01 DISCHARGE HOME Condition: Stable Grant Nj MD Apr 08, 2017 12:16
== END 2017-04-08 12:29 | disposition home or self-care (01) ==
LOC: NEPE 05:59
DX: R07.89 Other chest pain (principal); R06.02 Shortness of breath; M79.602 Pain in left arm; F17.200 Nicotine dependence, unspecified, uncomplicated; Z86.711 Personal history of pulmonary embolism; Z88.6 Allergy status to analgesic agent; Z88.5 Allergy status to narcotic agent; Z88.8 Allergy status to other drugs, medicaments and biological substances
CPT/HCPCS: 71010; 78582; 80053; 82550; 82552; 84484; 85025; 85610; 85730; 93005; 96374; 96376; 99285; A9540; A9567; J2270

== ENCOUNTER 2017-04-17 05:19 | Emergency (ER) | payer SELFPAY ==
[~2017-04-17] VITALS: Ht 172.7 cm; Wt 110.0 kg
[~2017-04-17 05:19] MED LIST changes: -CYCL1TAB29 PO; +CYCL5TAB PO; +HYDR-3516 PO; -MACR100C2 PO
[2017-04-17 05:23] VITALS: BP 133/72; PULSE 65; RESP 18; TEMP 98.2; O2SAT 100
[2017-04-17] MEDS ORDERED: SODIUM CHLORIDE 0.9% FLUSH 10 ML FLUSH IVF PRN (05:45)
[2017-04-17 06:03] LABS: AUTOMATED NEUTROPHIL # 2.1 TH/MM3 (1.8-7.7); BASOPHIL % 1.1 % (0.0-2.0); EOSINOPHIL # 0.1 TH/MM3 (0-0.4); EOSINOPHIL % 2.7 % (0.0-4.0); HEMATOCRIT 35.5 % (35.0-46.0); HEMO FLAGS DIFF FINAL; LYMPH % 30.8 % (9.0-44.0); LYMPHOCYTE # 1.1 TH/MM3 (1.0-4.8); MEAN CELL VOLUME 90.6 FL (80.0-100.0); MEAN CORPUSCULAR HGB CONC 33.1 % (32.0-36.0); MONO % 9.8 % (0.0-8.0); NEUT % 55.6 % (16.0-70.0); PLATELET COUNT 197 TH/MM3 (150-450); RED BLOOD COUNT 3.92 MIL/MM3 (4.00-5.30); RED CELL DISTRIBUTION WIDTH 14.2 % (11.6-17.2); WHITE BLOOD COUNT 3.7 TH/MM3 (4.0-11.0)
[2017-04-17 06:19] LABS: ANION GAP 7 MEQ/L (5-15); BICARBONATE 26.3 MEQ/L (21.0-32.0); BLOOD UREA NITROGEN 16 MG/DL (7-18); CHLORIDE 109 MEQ/L (98-107); GLOMERULAR FILTRATION RATE 63 ML/MIN (>89); POTASSIUM 3.9 MEQ/L (3.5-5.1); SODIUM (NA) 142 MEQ/L (136-145)
--- NOTE | 2017-04-17 06:25 | RADRPT ---
EXAM DATE/TIME: 04/17/2017 05:47 [facility] COMPARISON: CHEST SINGLE AP, April 08, 2017, 6:39. INDICATIONS : Chest pain. MEDICAL HISTORY : None. SURGICAL HISTORY : None. ENCOUNTER: [facility] ACUITY: 1 week PAIN SCORE: 0/10 LOCATION: Bilateral chest FINDINGS: A single view of the chest demonstrates the lungs to be symmetrically aerated without evidence of mas s, infiltrate or effusion. The cardiomediastinal contours are unremarkable. Osseous structures are intact. CONCLUSION: No acute disease. Steffen Hood MD on April 17, 2017 at 6:23 Board Certified Radiologist. This report was verified electronically.
--- NOTE | 2017-04-17 06:32 | RADRPT ---
EXAM DATE/TIME: 04/17/2017 05:59 [facility] COMPARISON: No previous studies available for comparison. INDICATIONS : Left arm numbness, evaluate for radiculopathy. RADIATION DOSE: 25.39 CTDIvol (mGy) MEDICAL HISTORY : None SURGICAL HISTORY : Tubal ligation. ENCOUNTER: Initial ACUITY: 1 day PAIN SCALE: 0/10 LOCATION: neck TECHNIQUE: Volumetric scanning of the cervical spine was performed. Multiplanar reconstructions in the sagittal, coronal and oblique axial planes were performed. Using automated exposure control and adjustment o f the mA and/or kV according to patient size, radiation dose was kept as low as reasonably achievable to obtain optimal diagnostic quality images. DICOM format image data is available electronically f or review and comparison. FINDINGS: VERTEBRAE: Normal vertebral body height. ALIGNMENT: No evidence of subluxation. C2-C3: The bony spinal canal is normal in size. No evidence of disc bulge or herniation. The neural forami na are bilaterally patent. C3-C4: The bony spinal canal is normal in size. No evidence of disc bulge or herniation. The neural forami na are bilaterally patent. C4-C5: The bony spinal canal is normal in size. No evidence of disc bulge or herniation. The neural forami na are bilaterally patent. C5-C6: The bony spinal canal is normal in size. No evidence of disc bulge or herniation. The neural forami na are bilaterally patent. The disc margin is not well visualized. C6-C7: The bony spinal canal is normal in size. No evidence of disc bulge or herniation. The neural forami na are bilaterally patent. C7-T1: The bony spinal canal is normal in size. No evidence of disc bulge or herniation. The neural forami na are bilaterally patent. CONCLUSION: Negative exam with no evidence of disc protrusion or spinal stenosis. The neural fora efren are patent. Steffen Hood MD on April 17, 2017 at 6:28 Board Certified Radiologist. This report was verified electronically.
--- NOTE | 2017-04-17 06:43 | RADRPT ---
EXAM DATE/TIME: 04/17/2017 06:11 [facility] COMPARISON: No previous studies available for comparison. INDICATIONS : Left arm swelling. MEDICAL HISTORY : Pulmonary embolism. Hernia. Kidney stones. SURGICAL HISTORY : Tubal ligation. IVC Filter placement. Cardiac catheterization. Lithotripsy. Renal stent. Pelvic fra cture repair. Sinus surgery. Skin grafts. ENCOUNTER: Initial ACUITY: 1 day PAIN SCORE: 2/10 LOCATION: Left arm. FINDINGS: There is spontaneous flow documented in the brachial, basilic, cephalic, axillary, and subclavian vei ns. The vessels are compressible and augmentation response is documented. No filling defects are se en. The flow is phasic with respiration. Direction of flow in the jugular vein is caudal. CONCLUSION: Negative exam with no evidence of deep venous thrombosis. Steffen Hood MD on April 17, 2017 at 6:42 Board Certified Radiologist. This report was verified electronically.
[2017-04-17] MEDS ORDERED: GABA100C4 PO (06:49)
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
--- NOTE | 2017-04-17 10:09 | EKG ---
Date Performed: 04/17/2017 Time Performed: 05:33:24 PTAGE: 36 years EKG: Sinus rhythm NORMAL ECG PREVIOUS TRACING : 04/08/2017 06.27 Compared to prior tracing no significant change DOCTOR: Kely Hartmann Interpretating Date/Time 04/17/2017 10:08:22
== END 2017-04-17 07:08 | disposition home or self-care (01) ==
LOC: NEPE 05:19
DX: R07.89 Other chest pain (principal); R20.2 Paresthesia of skin; M79.602 Pain in left arm; F17.200 Nicotine dependence, unspecified, uncomplicated
CPT/HCPCS: 71010; 72125; 80048; 84484; 84703; 85025; 93005; 93971; 99285

== ENCOUNTER 2017-05-05 23:04 | Emergency (ER) | payer SELFPAY ==
[~2017-05-05] VITALS: Ht 175.3 cm; Wt 100.0 kg
[~2017-05-05 23:04] MED LIST changes: +GABA100C4 PO
[2017-05-05 23:10] VITALS: BP 148/89; PULSE 84; RESP 17; TEMP 98.6; O2SAT 100
[2017-05-05] MEDS ORDERED: SODIUM CHLORIDE 0.9% FLUSH 10 ML FLUSH IV FLUSH PRN (23:45)
[2017-05-05] MEDS ORDERED: SODIUM CHLOR 0.9% 1000 ML INJ 1,000 ML IV ONE (23:45)
[2017-05-05 23:53] LABS: AUTOMATED NEUTROPHIL # 3.5 TH/MM3 (1.8-7.7); BASOPHIL % 0.9 % (0.0-2.0); EOSINOPHIL # 0.1 TH/MM3 (0-0.4); EOSINOPHIL % 2.1 % (0.0-4.0); HEMATOCRIT 36.7 % (35.0-46.0); HEMOGLOBIN 12.4 GM/DL (11.6-15.3); LYMPH % 24.2 % (9.0-44.0); LYMPHOCYTE # 1.3 TH/MM3 (1.0-4.8); MEAN CORPUSCULAR HEMOGLOBIN 30.3 PG (27.0-34.0); MEAN CORPUSCULAR HGB CONC 33.7 % (32.0-36.0); MEAN PLATELET VOLUME 8.7 FL (7.0-11.0); MONO % 8.4 % (0.0-8.0); MONOCYTE # 0.5 TH/MM3 (0-0.9); NEUT % 64.4 % (16.0-70.0); PLATELET COUNT 227 TH/MM3 (150-450); RED BLOOD COUNT 4.08 MIL/MM3 (4.00-5.30); RED CELL DISTRIBUTION WIDTH 14.3 % (11.6-17.2); WHITE BLOOD COUNT 5.4 TH/MM3 (4.0-11.0)
[2017-05-05 23:56] VITALS: RESP 16; O2SAT 99
[2017-05-06] MEDS ORDERED: ONDANSETRON HCL 4 MG/2 ML VIAL IV ONE
[2017-05-06 00:14] LABS: AMORPHOUS SEDIMENT, URINE RARE; BACTERIA, URINE RARE /hpf; BILIRUBIN, URINE NEG (NEG); BLOOD, URINE NEG (NEG); GLUCOSE,URINE NEG (NEG); KETONE, URINE TRACE mg/dL (NEG); MUCUS URINE FEW /lpf (OCC); NITRITE,URINE NEG (NEG); SQUAMOUS EPITHELIAL CELL URINE 24 /hpf (0-5); URINE COLOR YELLOW (YELLW/STRAW); URINE LEUKOCYTE ESTERASE SMALL (NEG)
[2017-05-06 00:18] LABS: ALBUMIN 3.8 GM/DL (3.4-5.0); AST (GOT) 14 U/L (15-37); BLOOD UREA NITROGEN 20 MG/DL (7-18); CALCIUM 8.5 MG/DL (8.5-10.1); CHLORIDE 110 MEQ/L (98-107); CREATININE 1.25 MG/DL (0.50-1.00); GLOMERULAR FILTRATION RATE 48 ML/MIN (>89); GLUCOSE,RANDOM 93 MG/DL (74-106); SODIUM (NA) 142 MEQ/L (136-145)
[2017-05-06 00:21] LABS: ALKALINE PHOSPHATASE 66 U/L (45-117); ALT (GPT) 19 U/L (10-53); TOTAL BILIRUBIN ADULT 0.1 MG/DL (0.2-1.0); TOTAL PROTEIN 7.3 GM/DL (6.4-8.2)
--- NOTE | 2017-05-06 01:34 | RADRPT ---
EXAM DATE/TIME: 05/06/2017 01:00 [facility] COMPARISON: No previous studies available for comparison. INDICATIONS : Abdominal pain for twelve hours. MEDICAL HISTORY : Renal calculi. PE SURGICAL HISTORY : Tubal ligation. IVC filter placement. renal stent ENCOUNTER: Initial ACUITY: 1 day PAIN SCORE: 9/10 LOCATION: Bilateral Abdomen FINDINGS: The bowel gas is nonspecific. There are no signs of obstruction or free air for technique. No defini te calcified stones are identified for technique. IVC filter is in place. There is deformity of the p elvic bones particularly the iliac bones bilaterally chronic in nature. CONCLUSION: Nonspecific abdomen. Rishabh Rascon MD on May 06, 2017 at 1:32 Board Certified Radiologist. This report was verified electronically.
--- NOTE | 2017-05-06 01:41 | PD ---
HPI Chief Complaint: Abdominal Pain Time Seen by Provider: 23:35 Travel History International Travel<30 days: No Contact w/Intl Traveler<30days: No Traveled to known affect area: No History of Present Illness HPI This is a 36-year-old female who presents to the emergency department with 1 day of right lower abdominal pain, constant, moderate severity, sharp, associated with multiple episodes of vomiting. She denies any fevers or chills. She denies any dysuria or blood in her urine. She denies any diarrhea. She says she's never had pain like this before. She says she's had kidney stones in the past. She denies any vaginal discharge. She says she's had a tubal ligation in the past. PFSH Past Medical History Hx Anticoagulant Therapy: No Asthma: No Blood Disorders: No Heart Rhythm Problems: No Cardiac Catheterization: Yes Cardiovascular Problems: No High Cholesterol: No Chemotherapy: No Congestive Heart Failure: No COPD: No Cerebrovascular Accident: No Diabetes: No Diminished Hearing: No Endocrine: No Gastrointestinal Disorders: Yes (HERNIA) Genitourinary: No Immune Disorder: No Implanted Vascular Access Dvce: Yes Kidney Stones: Yes Musculoskeletal: Yes (OPEN BOOK PELVIC FRACTURE) Neurologic: No Psychiatric: No Reproductive: No Respiratory: Yes (PE) ?: Not : 1 Para: 1 Miscarriage: 0 : 0 Tubal Ligation: Yes Past Surgical History Body Medical Devices: IVC filter Section: Yes Coronary Artery Bypass Graft: No Genitourinary Surgery: Yes (LITHOTRIPSY X 2, RENAL STENT) Hysterectomy: No Other Surgery: Yes (sinus, multiple skin grafts, IVC filter) Family History Family Myocardial Infarction: Yes Social History Alcohol Use: No Tobacco Use: Yes (/2 PPD) Substance Use: Yes ("CLEAN FOR 2.5 YEARS") Allergies-Medications (Allergen,Severity, Reaction): Coded Allergies: Fish Containing Products (Verified Allergy, Unknown, 05/05/17) Iodine and Iodide Containing Produc (Verified Allergy, Unknown, 05/05/17) acetaminophen (Verified Allergy, Unknown, 05/05/17) aspirin (Verified Allergy, Unknown, HIVES, 05/05/17) azithromycin (Verified Allergy, Unknown, 05/05/17) ibuprofen (Verified Allergy, Unknown, 05/05/17) ketorolac (Verified Allergy, Unknown, 05/05/17) tramadol (Verified Allergy, Unknown, 05/05/17) Reported Meds & Prescriptions Reported Meds & Active Scripts Active No Active Prescriptions or Reported Medications Review of Systems Except as stated in HPI: all other systems reviewed are Neg Physical Exam Narrative GENERAL:Well appearing, no acute distress SKIN: Focused skin assessment warm and dry. HEAD: Atraumatic. Normocephalic. EYES: Pupils equal and round. No injection or drainage. ENT: Moist mucous membranes NECK: Trachea midline. CARDIOVASCULAR: Regular rate and rhythm. No murmur appreciated. RESPIRATORY: Clear to auscultation. Breath sounds equal bilaterally. GASTROINTESTINAL: Abdomen soft, diffusely mildly tender to palpation with no rebound or guarding. MUSCULOSKELETAL: No obvious deformities. NEUROLOGICAL: Awake and alert. No obvious cranial nerve deficits. Moving all extremities. PSYCHIATRIC: Appropriate mood and affect; insight and judgment normal. Data Data Last Documented VS Vital Signs Date Time Temp Pulse Resp B/P (MAP) Pulse Ox O2 Delivery O2 Flow Rate FiO2 05/05/17 23:56 16 99 Room Air 05/05/17 23:10 98.6 84 148/89 (108) Orders Orders Complete Blood Count With Diff (05/05/17 23:39) Comprehensive Metabolic Panel (05/05/17 23:39) Urinalysis - C+S If Indicated (05/05/17 23:39) Iv Access Insert/Monitor (05/05/17 23:39) Ecg Monitoring (05/05/17 23:39) Oximetry (05/05/17 23:39) Sodium Chloride 0.9% Flush (Ns Flush) (05/05/17 23:45) Sodium Chlor 0.9% 1000 Ml Inj (Ns 1000 M (05/05/17 23:45) Ondansetron Inj (Zofran Inj) (05/06/17 00:00) Abdomen, Kub Only (05/06/17 ) Labs Laboratory Tests Test 05/05/17 23:42 05/05/17 23:47 White Blood Count 5.4 TH/MM3 Red Blood Count 4.08 MIL/MM3 Hemoglobin 12.4 GM/DL Hematocrit 36.7 % Mean Corpuscular Volume 90.0 FL Mean Corpuscular Hemoglobin 30.3 PG Mean Corpuscular Hemoglobin Concent 33.7 % Red Cell Distribution Width 14.3 % Platelet Count 227 TH/MM3 Mean Platelet Volume 8.7 FL Neutrophils (%) (Auto) 64.4 % Lymphocytes (%) (Auto) 24.2 % Monocytes (%) (Auto) 8.4 % Eosinophils (%) (Auto) 2.1 % Basophils (%) (Auto) 0.9 % Neutrophils # (Auto) 3.5 TH/MM3 Lymphocytes # (Auto) 1.3 TH/MM3 Monocytes # (Auto) 0.5 TH/MM3 Eosinophils # (Auto) 0.1 TH/MM3 Basophils # (Auto) 0.0 TH/MM3 CBC Comment DIFF FINAL Differential Comment Blood Urea Nitrogen 20 MG/DL Creatinine 1.25 MG/DL Random Glucose 93 MG/DL Total Protein 7.3 GM/DL Albumin 3.8 GM/DL Calcium Level 8.5 MG/DL Alkaline Phosphatase 66 U/L Aspartate Amino Transf (AST/SGOT) 14 U/L Alanine Aminotransferase (ALT/SGPT) 19 U/L Total Bilirubin 0.1 MG/DL Sodium Level 142 MEQ/L Potassium Level 4.3 MEQ/L Chloride Level 110 MEQ/L Carbon Dioxide Level 28.0 MEQ/L Anion Gap 4 MEQ/L Estimat Glomerular Filtration Rate 48 ML/MIN Urine Color YELLOW Urine Turbidity CLOUDY Urine pH 8.0 Urine Specific Anderson 1.027 Urine Protein 30 mg/dL Urine Glucose (UA) NEG mg/dL Urine Ketones TRACE mg/dL Urine Occult Blood NEG Urine Nitrite NEG Urine Bilirubin NEG Urine Urobilinogen 2.0 MG/DL Urine Leukocyte Esterase SMALL Urine WBC LESS THAN 1 /hpf Urine Squamous Epithelial Cells 24 /hpf Urine Amorphous Sediment RARE Urine Bacteria RARE /hpf Urine Mucus FEW /lpf Microscopic Urinalysis Comment CULT NOT INDICATED MDM Medical Decision Making Medical Screen Exam Complete: Yes Emergency Medical Condition: Yes Interpretation(s) Afebrile, no tachycardia, hypertensive No leukocytosis Electrolytes are reassuring Urinalysis is negative for infection Differential Diagnosis Appendicitis, nephrolithiasis, bowel obstruction, incarcerated hernia Narrative Course This is a 36-year-old female who presents to the emergency department with right sided abdominal discomfort. She has a benign nonspecific exam. Vital signs are reassuring and lab work is all unremarkable. Patient has been seen multiple times in the emergency department over the past year for pain-related complaints. She's had for abdominal CTs in the past year which have been reassuring. She does have a large abdominal wall hernia on the right which I can palpate an is soft and doesn't appear strangulated or incarcerated. I am along conversation with the patient regarding the risks versus benefits of CT imaging given she is young and she's had multiple CT scans in the past. In the absence of leukocytosis and fever I doubt she has appendicitis. Her urinalysis is negative for blood so I doubt she has a kidney stone. We obtained a KUB which demonstrates no signs of obstruction. The patient appears well and has not vomited here in the emergency Department. I think she is safe for discharge and I doubt a surgical etiology of her symptoms. She can return if her symptoms get worse. Diagnosis Primary Impression: Abdominal pain Qualified Codes: R10.31 - Right lower quadrant pain Patient Instructions: General Instructions Additional Instructions: If you develop severe or worsening abdominal pain, fever>100.4, persistent vomiting or inability to eat or drink return to the emergency department immediately. Follow up with your primary care physician in 1-2 days for a check-up. Med/Other Pt SpecificInfo: No Change to Meds Scripts No Active Prescriptions or Reported Meds Disposition: 01 DISCHARGE HOME Condition: Stable Fiona Carr MD May 06, 2017 01:41
== END 2017-05-06 02:05 | disposition home or self-care (01) ==
LOC: NEPC 23:04
DX: R10.31 Right lower quadrant pain (principal); F17.200 Nicotine dependence, unspecified, uncomplicated; Z87.442 Personal history of urinary calculi
CPT/HCPCS: 74000; 80053; 81001; 85025; 96374; 99284; J2405; J7030